=== PATIENT | male | born 1945 | race Caucasian/White ===

== ENCOUNTER 2016-07-11 02:11 | Observation (INO) | payer OTHER ==
[~2016-07-11] VITALS: Ht 172.7 cm; Wt 101.1 kg
[~2016-07-11 02:11] MED LIST: ACET-1256 PO; ASCO1CAP3 PO; ASPI1TAB83 PO; CHOL1000 PO; CLOP1TAB15 PO; ESCI1TAB10 PO; FINA5TAB4 PO; FLNIN NAE; FURO-85 PO; IMDSR30 PO; LEVO25TA5 PO; LSN5 PO; METO25TA3 PO; NMN5 PO; NRV5 PO; NTRGSL/4 UT; OMEG10007 PO; PANT40TA PO; ROSU40TA PO; SITA50TA3 PO
[2016-07-11 02:35] LABS: BASO % 0.4 %; BASO ABS # 0.02 K/uL (0-0.2); COMPLETE YES; EOS % 8.6 %; HEMATOCRIT 37.3 % (42-52); LYMPH % 39.5 %; LYMPH ABS # 2.21 K/uL (1.2-3.4); MEAN CORPUSCULAR HEMOGLOBIN 30.9 pg (25-34); MEAN CORPUSCULAR HGB CONC 35.1 g/dl (32-36); MEAN PLATELET VOLUME 10.6 fL (7.4-10.4); MONO % 7.9 %; NEUT % 43.6 %; PLATELET COUNT 144 K/uL (130-400); RED BLOOD COUNT 4.24 M/uL (4.7-6.1); WHITE BLOOD COUNT 5.59 K/uL (4.8-10.8)
[2016-07-11 02:49] LABS: PROTHROMBIN TIME (PATIENT) 10.2 SECONDS (9.0-12.0)
[2016-07-11 02:53] LABS: BUN/CREATININE RATIO 7.6 (10-20); CALCIUM 8.8 mg/dl (8.5-10.1); CREATININE 1.3 mg/dl (0.60-1.40); POTASSIUM 3.9 mmol/L (3.5-5.1)
[2016-07-11] MEDS ORDERED: AMOX500C3 PO (03:02)
[2016-07-11 03:03] LABS: CKMB/CK RATIO 1.3 (0-3.0)
[2016-07-11] MEDS ORDERED: VITATAB19 PO (03:03)
[2016-07-11] MEDS ORDERED: CHOL1000 PO (03:03)
[2016-07-11] MEDS ORDERED: FENTANYL CITRATE INJ 50 MCG/1 ML 2 ML VIAL IV STA (03:20)
[2016-07-11] MEDS ORDERED: ONDANSETRON INJ 2 MG/ML 2 ML VIAL IV PRN (03:45)
[2016-07-11] MEDS ORDERED: NITROGLYCERIN 0.4 MG SL PER TAB CHARGE SL PRN (03:45)
[2016-07-11] MEDS ORDERED: GLUCAGON FOR INJ 1 MG VIAL SQ PRN (03:45)
[2016-07-11] MEDS ORDERED: ALUMINUM/MAGNESIUM/SIMETH (MAALOX MAX) 30 ML UDC PO PRN ×3 (03:45→12:15)
[2016-07-11] MEDS ORDERED: POLYETHYLENE (MIRALAX) 17 GM PACK PO PRN (03:45)
[2016-07-11] MEDS ORDERED: MAGNESIUM HYDROXIDE SUSP 30 ML UDC PO PRN (03:45)
[2016-07-11] MEDS ORDERED: GLUCOSE 40% GEL 15 GM TUBE PO PRN (03:45)
[2016-07-11] MEDS ORDERED: DEXTROSE 50% 50 ML SYR IV PRN (03:45)
[2016-07-11] MEDS ORDERED: ACETAMINOPHEN 325 MG TAB PO PRN (03:45)
[2016-07-11] MEDS ORDERED: GLUCOSE 10 TABS/TUBE PO PRN (03:45)
[2016-07-11] MEDS ORDERED: IV FLUIDS COMPLETED PRN (04:15)
[2016-07-11 05:21] VITALS: BP 143/83; PULSE 65; TEMP 36.5; O2SAT 94; Ht 172.7 cm; Wt 101.1 kg
--- NOTE | 2016-07-11 05:24 | History and Physical ---
History & Physical Date & Time of Service: Jul 11, 2016 at 05:08 Chief Complaint: Chest Pain Primary Care Physician: Roger Jacobs M.D. History of Present Illness Source: patient, family, clinic records, hospital records This is a 71 year old male with PMH of CAD s/p CABG x 3, chronic stable angina, GERD, HLD, HTN, mild underlying dementia, DM2, hypothyroidism presents with worsening chest pain - he has had this same chest pain during previous admissions; states that the chest pain started suddenly while seated at home; as per , she states that he was diaphoretic and pale - he took two SL nitro at home with little improvement; took another nitro on the way here, nitro paste added for the patient as well as fentanyl in the ER - he feels much better now. He had a cardiac catheterization in January 2016, showing patent grafts. During previous admission in May, he had a few adjustments in his medications, including increasing in his imdur dose, as well as the addition of a calcium channel jos. Currently comfortable and in good spirits. Past Medical/Surgical History Medical Problems: (1) Adhesive capsulitis Status: Chronic (2) Alzheimer's dementia Status: Chronic (3) BPH (benign prostatic hyperplasia) Status: Chronic (4) Coronary artery disease Permanent Comment: s/p CABG x 3 in 1996 Status: Chronic (5) Diverticular disease of colon Status: Chronic (6) Dyslipidemia Status: Chronic (7) Gastroesophageal reflux disease Status: Chronic (8) Hearing loss Status: Chronic (9) Hypertension Status: Chronic (10) Hypothyroidism Status: Chronic (11) Osteoarthritis Status: Chronic Surgical Problems: (1) History of bilateral knee arthroplasty Status: Chronic (2) History of inguinal hernia repair Status: Chronic (3) Status post colonoscopy Permanent Comment: 2013 diverticulosis Status: Chronic (4) Status post coronary artery bypass grafting Status: Chronic Family History Coronary artery disease FATHER (ND in 50's) Social History Smoking Status: Never Smoker Drug Use: none Marital Status: Housing status: lives with family Occupational Status: retired Immunizations History of Influenza Vaccine: Yes Influenza Vaccine Date: Apr 25, 2015 History of Tetanus Vaccine?: Yes History of Pneumococcal: Yes History of Hepatitis B Vaccine: No Multi-Drug Resistant Organisms History of MDRO: No Allergies Coded Allergies: Dog Dander (Verified Allergy, Unknown, 07/11/16) Home Medications Scheduled Amlodipine Besylate (Amlodipine Besylate), 2.5 MG PO QAM Aspirin (Aspirin), 81 MG PO DAILY Cholecalciferol (Vitamin D3), 1,000 MG PO DAILY Cholecalciferol (Vitamin D3), 1 TAB PO DAILY Clopidogrel (Plavix), 75 MG PO DAILY Escitalopram Oxalate (Lexapro), 20 MG PO DAILY Fish Oil ([place]-3), 1 CAPSULE PO BID Fluticasone Propionate (Flonase Nasal [place]), 2 SPRAYS FEROZ DAILY Isosorbide Mononitrate (Isosorbide Mononitrate ER), 90 MG PO QAM Levothyroxine Sodium (Levothyroxine Sodium), 1 TAB PO DAILY Lisinopril (Lisinopril), 5 MG PO DAILY Memantine (Namenda), 5 MG PO BID Metoprolol Succinate (Toprol Xl), 25 MG PO DAILY Pantoprazole (Protonix), 40 MG PO DAILY Rosuvastatin Calcium (Crestor), 1 TAB PO DAILY Sitagliptin (Januvia), 50 MG PO DAILY Vitamin A-Beta Carotene (Vitamin A), 1,000 MG PO DAILY Scheduled PRN Acetaminophen (Tylenol), 1,000 MG PO DIRECTED PRN for Pain Amoxicillin (Amoxil), MG PO UD PRN for prior to dental work Nitroglycerin (Nitrostat), 0.4 MG UT PRN PRN for CHEST PAIN Review of Systems Constitutional: No chills, No fever, No weakness Respiratory: No cough, No shortness of breath, No sputum Cardiovascular: + chest pain (radiating to the back), No edema, No palpitations Abdomen: + nausea, No GI bleeding, No constipation, No diarrhea, No pain, No vomiting Musculoskeletal: No joint pain, No muscle pain Genitourinary - Male: No dysuria, No hematuria, No urinary frequency, No urinary urgency Neurologic: No memory loss Psychiatric: No depression symptoms Hematologic / Lymphatic: No abnormal bleeding/bruising Integumentary: No rash Allergic / Immunologic: No environmental allergies, No seasonal allergies Physical Exam Vital Signs Date Time Temp Pulse Resp B/P Pulse Ox O2 Delivery O2 Flow Rate FiO2 07/11/16 03:32 62 18 134/80 95 Room Air 07/11/16 02:24 67 07/11/16 02:21 36.5 63 18 135/85 95 Room Air 07/11/16 02:15 Room Air General Appearance: no apparent distress Head: normocephalic, atraumatic Eyes: normal inspection Respiratory/Chest: chest non-tender, lungs clear, normal breath sounds, no respiratory distress, no accessory muscle use Cardiovascular: regular rate, rhythm, no edema, no gallop, no JVD, no murmur, normal peripheral pulses Abdomen/GI: normal bowel sounds, non tender, soft Extremities/Musculoskelatal: no calf tenderness, normal capillary refill, no pedal edema Neurologic/Psych: sander and polisher II-XII nml as tested, no motor/sensory deficits, alert, normal mood/affect, oriented x 3 Skin: normal color Lymphatic: no adenopathy Diagnostics Laboratory Results Results Past 24 Hours Test 07/11/16 01:40 Range/Units White Blood Count 5.59 4.8-10.8 K/uL Red Blood Count 4.24 4.7-6.1 M/uL Hemoglobin 13.1 14.0-18.0 g/dL Hematocrit 37.3 42-52 % Mean Corpuscular Volume 88.0 80-100 fL Mean Corpuscular Hemoglobin 30.9 25-34 pg Mean Corpuscular Hemoglobin Concent 35.1 32-36 g/dl Platelet Count 144 130-400 K/uL Mean Platelet Volume 10.6 7.4-10.4 fL Neutrophils (%) (Auto) 43.6 % Lymphocytes (%) (Auto) 39.5 % Monocytes (%) (Auto) 7.9 % Eosinophils (%) (Auto) 8.6 % Basophils (%) (Auto) 0.4 % Neutrophils # (Auto) 2.44 1.4-6.5 K/uL Lymphocytes # (Auto) 2.21 1.2-3.4 K/uL Monocytes # (Auto) 0.44 0.11-0.59 K/uL Eosinophils # (Auto) 0.48 0-0.5 K/uL Basophils # (Auto) 0.02 0-0.2 K/uL RDW Standard Deviation 41.1 36.4-46.3 fL RDW Coefficient of Variation 12.8 11.5-14.5 % Immature Granulocyte % (Auto) 0.0 % Immature Granulocyte # (Auto) 0.00 0.00-0.02 K/uL Prothrombin Time 10.2 9.0-12.0 SECONDS Prothromb Time International Ratio 1.0 0.9-1.1 Activated Partial Thromboplast Time 27.1 21.0-31.0 SECONDS Partial Thromboplastin Ratio 1.0 Sodium Level 143 136-145 mmol/L Potassium Level 3.9 3.5-5.1 mmol/L Chloride Level 106 98-107 mmol/L Carbon Dioxide Level 26 21-32 mmol/L Anion Gap 11.0 3-11 mmol/L Blood Urea Nitrogen 10 7-18 mg/dl Creatinine 1.30 0.60-1.40 mg/dl Est Creatinine Clear Calc Drug Dose 60.3 ml/min Estimated GFR () 63.2 Estimated GFR (Non- 54.5 BUN/Creatinine Ratio 7.6 10-20 Random Glucose 160 70-99 mg/dl Calcium Level 8.8 8.5-10.1 mg/dl Total Creatine Kinase 208 39-308 U/L Creatine Kinase MB 2.6 0.5-3.6 ng/ml Creatine Kinase MB Ratio 1.3 0-3.0 Troponin I 0.105 0-0.045 ng/ml No change from prior EKG Impression Assessment and Plan This is a 71 year old male with PMH of CAD s/p CABG x 3, chronic stable angina, GERD, HLD, HTN, mild underlying dementia, DM2, hypothyroidism presents with worsening chest pain Chronic Stable Angina in the setting of CAD -->patient with CABG in 1996 -->cardiac cath in January 2016 - patent grafts -->troponin elevation chronically -->recurrence of anginal symptoms, improved with SL nitro, nitro paste, fentanyl -->continue ASA, Plavix, Imdur, CCB, b-jos, MARGY-I -->during previous admission, question of possibly starting Ranexa -->cycle cardiac enzymes -->cardiology consultation for further input DM2 -->insulin sliding scale -->monitor BSGs GERD -->continue PPI -->chest pain possibly related to reflux symptoms -->if chest pain does not resolved, consider increasing PPI to BID dosing or addition of ranitidine Hypothyroidism -->continue synthroid HTN -->continue home medications DVT ppx -->subq heparin DNR VTE Prophylaxis VTE Risk Assessment Done? Y/N: Yes Risk Level: Moderate
[2016-07-11] MEDS: LEVOTHYROXINE 25 MCG TAB PO SCH (06:18)
[2016-07-11] MEDS: HEPARIN SOD 5000 UNIT/0.5 ML CARP SQ SCH ×3 (06:19→20:59)
--- NOTE | 2016-07-11 06:44 | EMERGENCY ROOM VISIT NOTE ---
History Report prepared by Joseibemiliano: Fili Hoyt Under the Supervision of: Dr. Anastacio Ruelas M.D. First contact with patient: 02:15 Chief Complaint: CHEST PAIN Stated Complaint: CHEST PAIN History of Present Illness The patient is a 71 year old male who presents to the Emergency Room with complaints of resolved left-sided chest pain that started at approximately 0000. The patient was also reportedly pale and diaphoretic at that time, as per his . The patient was given 100 mcg Fentanyl, 324 mg Aspirin, and Nitro paste in the ambulance en route to the ED. He no longer has any pain. The patient denies any headaches, shortness of breath, nausea, abdominal pain, or new neck pain. He has not had any recent falls. The patient has a history of CAD and has had similar episodes of pain in the past. He had a cardiac catheterization six months ago with no stents at that time. The patient also has Alzheimer's disease. He has not had any recent illnesses. Source of History: patient, spouse/significant other Onset: 0000 Position: chest (left) Timing: resolved Modifying Factors (Relieving): other (Fentanyl, Aspirin, Nitropaste ) Associated Symptoms: + diaphoresis, No SOB, No headache, No nausea, No neck pain Review of Systems See HPI for pertinent positives & negatives. A total of 10 systems reviewed and were otherwise negative. Past Medical & Surgical Medical Problems: (1) Adhesive capsulitis (2) Alzheimer's dementia (3) BPH (benign prostatic hyperplasia) (4) Chest pain (5) Chest pain (6) Coronary artery disease (7) Diverticular disease of colon (8) Dyslipidemia (9) Falls (10) Gastroesophageal reflux disease (11) Hearing loss (12) Hypertension (13) Hypothyroidism (14) Osteoarthritis Surgical Problems: (1) History of bilateral knee arthroplasty (2) History of inguinal hernia repair (3) Status post colonoscopy (4) Status post coronary artery bypass grafting Family History Coronary artery disease FATHER (MS in 50's) Social History Smoking Status: Former Smoker Alcohol Use: none Drug Use: none Marital Status: Housing Status: lives with family Occupation Status: retired Current/Historical Medications Scheduled Amlodipine Besylate (Amlodipine Besylate), 2.5 MG PO QAM Aspirin (Aspirin), 81 MG PO DAILY Cholecalciferol (Vitamin D3), 1,000 MG PO DAILY Cholecalciferol (Vitamin D3), 1 TAB PO DAILY Clopidogrel (Plavix), 75 MG PO DAILY Escitalopram Oxalate (Lexapro), 20 MG PO DAILY Fish Oil ([place]-3), 1 CAPSULE PO BID Fluticasone Propionate (Flonase Nasal [place]), 2 SPRAYS FEROZ DAILY Isosorbide Mononitrate (Isosorbide Mononitrate ER), 90 MG PO QAM Levothyroxine Sodium (Levothyroxine Sodium), 1 TAB PO DAILY Lisinopril (Lisinopril), 5 MG PO DAILY Memantine (Namenda), 5 MG PO BID Metoprolol Succinate (Toprol Xl), 25 MG PO DAILY Pantoprazole (Protonix), 40 MG PO DAILY Rosuvastatin Calcium (Crestor), 1 TAB PO DAILY Sitagliptin (Januvia), 50 MG PO DAILY Vitamin A-Beta Carotene (Vitamin A), 1,000 MG PO DAILY Scheduled PRN Acetaminophen (Tylenol), 1,000 MG PO DIRECTED PRN for Pain Amoxicillin (Amoxil), MG PO UD PRN for prior to dental work Nitroglycerin (Nitrostat), 0.4 MG UT PRN PRN for CHEST PAIN Allergies Coded Allergies: Dog Dander (Verified Allergy, Unknown, 07/11/16) Physical Exam Vital Signs Date Time Temp Pulse Resp B/P Pulse Ox O2 Delivery O2 Flow Rate FiO2 07/11/16 03:32 62 18 134/80 95 Room Air 07/11/16 02:24 67 07/11/16 02:21 36.5 63 18 135/85 95 Room Air 07/11/16 02:15 Room Air Physical Exam GENERAL: Patient is well appearing and in no acute distress. HEENT: No acute trauma, normocephalic atraumatic, mucous membranes moist, no nasal congestion, no scleral icterus. NECK: No stridor, no adenopathy, no meningismus, trachea is midline. LUNGS: No dyspnea. Clear to auscultation and equal bilaterally. No wheeze, no rhonchi. HEART: Regular rate and rhythm. No murmurs, rubs, gallops appreciated. CHEST: Sternotomy scar appreciated. ABDOMEN: Soft, nontender, bowel sounds positive, no masses appreciated, no peritonitis. BACK: No midline tenderness, no CVA tenderness EXTREMITIES: Normal motion all extremities, no cyanosis, no edema. NEUROLOGIC: Alert and oriented, knows name and knows , cannot remember anything else. No acute motor or sensory deficits, no focal weakness, cranial nerves grossly intact. SKIN: No rash, no jaundice, no diaphoresis. Medical Decision & Procedures ER Provider Diagnostic Interpretation: X ray results are stated below per my interpretation: Chest: 1 view: No infiltrate, no effusion, normal cardiac border. Evidence of previous cardiac surgery. Laboratory Results 07/11/16 01:40 Red Blood Count 4.24, Mean Corpuscular Volume 88.0, Mean Corpuscular Hemoglobin 30.9, Mean Corpuscular Hemoglobin Concent 35.1, Mean Platelet Volume 10.6, Neutrophils (%) (Auto) 43.6, Lymphocytes (%) (Auto) 39.5, Monocytes (%) (Auto) 7.9, Eosinophils (%) (Auto) 8.6, Basophils (%) (Auto) 0.4, Neutrophils # (Auto) 2.44, Lymphocytes # (Auto) 2.21, Monocytes # (Auto) 0.44, Eosinophils # (Auto) 0.48, Basophils # (Auto) 0.02 07/11/16 01:40 Test 07/11/16 01:40 White Blood Count 5.59 K/uL (4.8-10.8) Red Blood Count 4.24 M/uL (4.7-6.1) Hemoglobin 13.1 g/dL (14.0-18.0) Hematocrit 37.3 % (42-52) Mean Corpuscular Volume 88.0 fL (80-100) Mean Corpuscular Hemoglobin 30.9 pg (25-34) Mean Corpuscular Hemoglobin Concent 35.1 g/dl (32-36) Platelet Count 144 K/uL (130-400) Mean Platelet Volume 10.6 fL (7.4-10.4) Neutrophils (%) (Auto) 43.6 % Lymphocytes (%) (Auto) 39.5 % Monocytes (%) (Auto) 7.9 % Eosinophils (%) (Auto) 8.6 % Basophils (%) (Auto) 0.4 % Neutrophils # (Auto) 2.44 K/uL (1.4-6.5) Lymphocytes # (Auto) 2.21 K/uL (1.2-3.4) Monocytes # (Auto) 0.44 K/uL (0.11-0.59) Eosinophils # (Auto) 0.48 K/uL (0-0.5) Basophils # (Auto) 0.02 K/uL (0-0.2) RDW Standard Deviation 41.1 fL (36.4-46.3) RDW Coefficient of Variation 12.8 % (11.5-14.5) Immature Granulocyte % (Auto) 0.0 % Immature Granulocyte # (Auto) 0.00 K/uL (0.00-0.02) Prothrombin Time 10.2 SECONDS (9.0-12.0) Prothromb Time International Ratio 1.0 (0.9-1.1) Activated Partial Thromboplast Time 27.1 SECONDS (21.0-31.0) Partial Thromboplastin Ratio 1.0 Anion Gap 11.0 mmol/L (3-11) Est Creatinine Clear Calc Drug Dose 60.3 ml/min Estimated GFR () 63.2 Estimated GFR (Non- 54.5 BUN/Creatinine Ratio 7.6 (10-20) Calcium Level 8.8 mg/dl (8.5-10.1) Total Creatine Kinase 208 U/L (39-308) Creatine Kinase MB 2.6 ng/ml (0.5-3.6) Creatine Kinase MB Ratio 1.3 (0-3.0) Troponin I 0.105 ng/ml (0-0.045) Laboratory results as reviewed by me. Medications Administered Medications (Trade) Dose Ordered Sig/Briseida Route Start Time Stop Time Status Last Admin Dose Admin Fentanyl Citrate (Fentanyl Inj) 100 mcg NOW STAT IV 07/11/16 03:20 07/11/16 03:21 DC 07/11/16 03:30 100 MCG ECG Indication: chest pain Rate (beats per minute): 62 Rhythm: sinus rhythm Findings: 1st degree AV block, T-wave inversion (Anterior), no ectopy Comparison ECG Date: 2015 Change: Similar morphology however T wave inversions are more pronounced anteriorly when compared to previous EKG. ED Course 0214: The patient was evaluated in room A10. A complete history and physical exam was performed. 0310: Discussed the case with Dr. Delaney, [facility] Hospitalist. The patient will be evaluated. 0319: The patient is having more pain. 0320: Fentanyl Citrate 100 mcg IV. Medical Decision Differential: Cardiac Ischemia (STEMI, NSTEMI, Unstable Angina, etc), Aortic Dissection, Arrhythmia, Pulmonary Embolism, Pneumonia, Pneumothorax, MSK, Infectious, Pericarditis/Myocarditis, Esophageal Rupture, Gastrointestinal, amongst other pathologies entertained. 71 yr old male arrives with left chest pain. Long cardiac history of CABG with known small vessel disease seen on cath . He was given SLTNG, Nitro Past , ASA, and Fentanyl CHEMICAL RESEARCH TECHNICIAN by EMS with resolution of pain. Without complaint here. Unable to remember what had actually happened as he has alzheimer's dementia. He is in no distress now though and looks well. With gave much of history as he is pleasantly demented. Did develop breath episode of nausea/ chest pain which resolved with fentanyl/burping. Stable and no further issues. EKG with some mild increase in T wave inversions, likely secondary to lead placement though. Trop similar to previous trops. Will bring in for cardiac rule out given his extensive cardiac history. Consults Time Called: [phone] Consulting Physician: [facility] Returned Call: [phone]: Discuss[facility] the case with [facility] The patient will be evaluated. Impression Primary Impression: Left sided chest pain Scribe Attestation The scribe's documentation has been prepared under my direction and personally reviewed by me in its entirety. I confirm that the note above accurately reflects all work, treatment, procedures, and medical decision making performed by me. Departure Information Dispostion Being Evaluated By Hospitalist Referrals Roger Jacobs M.D. (PCP) Patient Instructions A Signature Page, My [facility]
--- NOTE | 2016-07-11 07:34 | DIAGNOSTIC IMAGING REPORT ---
CHEST ONE VIEW PORTABLE HISTORY: Left-sided Chest Pain COMPARISON: Chest 05/20/2016. FINDINGS: No pleural effusions. No pneumothorax. The lungs are clear. The heart is normal in size. There are poststernotomy changes. IMPRESSION: No acute process. Electronically signed by: Emir Avery M.D. 07/11/2016 7:32 AM
[2016-07-11] MEDS: ASPIRIN 81 MG ECTAB PO SCH (08:34)
[2016-07-11] MEDS: ROSUVASTATIN CALCIUM 20 MG TAB PO SCH (08:34)
[2016-07-11] MEDS: ISOSORBIDE MONONITRATE 30 MG TABCR PO SCH (08:34)
[2016-07-11] MEDS: MEMANTINE 5 MG TAB PO SCH ×2 (08:34→20:28)
[2016-07-11] MEDS: AMLODIPINE BESYLATE 5 MG TAB PO SCH (08:35)
[2016-07-11] MEDS: ESCITALOPRAM OXALATE 20 MG TAB PO SCH (08:35)
[2016-07-11] MEDS: CLOPIDOGREL BISULFATE 75 MG TAB PO SCH (08:35)
[2016-07-11] MEDS: METOPROLOL SUCC 25MG EXT REL TAB PO SCH (08:36)
[2016-07-11] MEDS: LISINOPRIL 5 MG TAB PO SCH (08:36)
[2016-07-11] MEDS: INSULIN ASPART 100 UNITS/ML 3 ML PEN SC SCH ×4 (08:39→21:00)
[2016-07-11] MEDS ORDERED: PANTOprazole SOD 40 MG TAB PO SCH (09:00)
[2016-07-11 10:48] LABS: CKMB/CK RATIO 1.5 (0-3.0)
[2016-07-11] MEDS ORDERED: ALUMINUM/MAGNESIUM/SIMETH (MAALOX MAX) 30 ML UDC PO STA ×2 (11:27→12:04)
[2016-07-11] MEDS ORDERED: ALUM HYDROX/MAG TRISILICATE CHEW PO PRN (11:30)
[2016-07-11 12:00] VITALS: BP 140/70; PULSE 64; TEMP 36.8; O2SAT 95
[2016-07-11] MEDS ORDERED: OPTIRAY 320 IV PRN (12:00)
--- NOTE | 2016-07-11 12:08 | DIAGNOSTIC IMAGING REPORT ---
KUB HISTORY: Generalized abdominal pain. COMPARISON: Abdomen and pelvis CT 09/27/2015. FINDINGS: The bowel gas pattern is unremarkable. There are no dilated loops of small bowel to suggest an obstruction. No renal calculi. No ureteral calculi. No pneumoperitoneum or pneumatosis. IMPRESSION: Unremarkable bowel gas pattern. No evidence for bowel obstruction. Electronically signed by: Emir Avery M.D. 07/11/2016 12:06 PM
[2016-07-11] MEDS: SODIUM CHLORIDE 0.9% 1000ML 1,000 ML IV SCH ×2 (12:29→20:28)
--- NOTE | 2016-07-11 12:56 | CARDIOLOGY CONSULTATION ---
DATE OF CONSULTATION: 07/11/2016 CONSULTATION REQUESTED BY: Dr. Delaney. REASON FOR CONSULTATION: Chest discomfort. HISTORY OF PRESENT ILLNESS: Mr. Villareal is a very pleasant 71-year-old gentleman who normally follows with myself of our cardiology practice as an outpatient. He presented to [facility] Emergency Department late on the evening of 07/10/2016 with a complaint of abdominal pain. At the patient's most recent outpatient visit with me on June 13, at that time he and his were complaining that he was experiencing increasing abdominal discomfort that usually occurred after eating. He had a significant amount of gas and his described him as very belchy and very gaseous. At that time, I referred him to our GI colleagues for further evaluation. He was actually scheduled to see them yesterday, but unfortunately came into the Emergency Department instead. Currently, he states that he woke up this morning with severe abdominal pain. He states he feels very bloated. It is very very tender to touch, and he just cannot get comfortable. Nursing reports that he did seem to be a little bit better after belching; however, the patient does remember and his history is somewhat limited by his history of dementia. Otherwise, he states that the discomfort encompasses his entire abdomen, more so on the right than on the left though. There is some slight radiation up into his chest, but he denies any associated shortness of breath, diaphoresis, palpitations, lightheadedness or syncope. He is somewhat nauseous. He has not eaten anything today. PAST SURGICAL HISTORY: 1. Coronary artery bypass grafting surgery x3 in 1996 with a ROMANO to the LAD, vein graft to diagonal and vein graft to the posterior descending. 2. Followup cardiac catheterization in January 2016 showing patent grafts. 3. Colonoscopy. 4. Shoulder surgery. 5. Hernia repair. 6. TURP. 7. Cystoscopy. MEDICAL ILLNESSES: 1. Coronary artery disease status post CABG with patent grafts. 2. Significant dementia, Alzheimer's type. 3. Hypertension. 4. Dyslipidemia. FAMILY HISTORY: Noncontributory. SOCIAL HISTORY: The patient has remote tobacco use history. Denies any alcohol or recreational drug use. He is . He lives at home with his . REVIEW OF SYSTEMS: As per HPI, all other review of systems reviewed and negative at this time. ALLERGIES: No known drug allergies. MEDICATIONS AN OUTPATIENT: 1. Aspirin 81 mg daily. 2. Plavix 75 mg daily. 3. Toprol-XL 25 mg daily. 4. Crestor 40 mg daily. 5. Lisinopril 5 mg daily. 6. Imdur 90 mg daily. 7. Amlodipine 2.5 mg daily. 8. Pepcid b.i.d. 9. Protonix daily. 10. Levoxyl daily. 11. Januvia daily. 12. Lexapro daily. 13. Namenda daily. PHYSICAL EXAMINATION: VITAL SIGNS: Temperature 36.5, pulse 59, respiratory rate 12, blood pressure 141/90. GENERAL: Awake, alert, oriented x3, mild distress secondary to abdominal discomfort. HEENT: Normocephalic, atraumatic. Pupils equal, round, and reactive to light and accommodation. Extraocular muscles intact. Anicteric sclerae. Moist mucous membranes. NECK: No JVD, no bruit. CARDIOVASCULAR: Regular. Positive S4. Normal S1 and S2. No S3. No murmurs or rubs. PULMONARY: Clear to auscultation bilaterally. Soft. No rebound, guarding, tenderness. No organomegaly. ABDOMEN: Unable to appreciate bowel sounds. Rigid, diffuse tenderness with guarding particularly in the right upper quadrant. No rebound. EXTREMITIES: No clubbing, cyanosis or edema. +2 pedal pulses bilaterally. SKIN: Warm and dry. TEST RESULTS OF SIGNIFICANCE: Laboratory studies: Troponin of 0.1, followup stable. CPK unremarkable at 208, followed by 154. Sodium 143, potassium 3.9. White count 5.6, hemoglobin 13.1, platelet count 144. INR 1. A 12-lead EKG performed in the Emergency Department independently reviewed at this time shows sinus rhythm with first degree AV block, underlying right bundle branch block, old inferior infarct. T-wave inversions more prominent in the anterior leads. IMPRESSION: 1. Abdominal pain. 2. Coronary artery disease with patent grafts by cardiac catheterization January 2016. 3. Dementia. 4. Hypertension. 5. Dyslipidemia. 6. Questionable gastroesophageal reflux disease. RECOMMENDATIONS: It was my pleasure to see Mr. Villareal in consultation today. I do not see any cardiac component to his complaints and am concerned for significant GI pathology. So at this time, a KUB film will be ordered, as well as stat LFTs. I have discussed with the hospitalist and recommend either evaluation with surgery or by GI. Otherwise, no further cardiac testing is necessary at this time. His troponin is nonischemic in origin.
--- NOTE | 2016-07-11 13:01 | ECHOCARDIOGRAM REPORT ---
*NOTICE TO RECEIVING DEMOCRAT AGENCY This information is strictly Confidential and protected under [place] law. [place] law prohibits you from making any further disclosure of this information unless further disclosure is expressly permitted by the written consent of the person to whom it pertains or is authorized by law. A general authorization for the release of medical or other information is not sufficient for this purpose. Hospital accepts no responsibility if the information is made available to any other person, INCLUDING THE PATIENT. Interpretation Summary * Name: GERALDO PEREZ Study Date: 07/11/2016 11:21 AM BP: 141/90 mmHg * Patient Location: C.EDINP\S\EDINP 1\S\4 HR: 58 * : 1945 (M/d/yyyy) Gender: Male Height: 68 in * Age: 71 yrs Ethnicity: [place] Weight: 231 lb * Ordering Physician: Jerzy Jay * Referring Physician: Self, Referred * Performed By: Yumiko Martel RCS * * Reason For Study: EVAL WALL MOTION * BSA: 2.2 m2 * -- Conclusions -- * No change in wall motion compared to previous study of 05/20/16. * Normal LV chamber size with mild concentric LVH. * Normal LV systolic function, EF 55-60%. * There is a small sized septal wall motion abnormality with hypokinesis of the segments, otherwise, normal wall motion. Procedure Details * Limited views were obtained. * A contrast injection of Definity was performed to improve assessment of LV function. * Contrast was injected into an intravenous site in the left arm. * One vial of Definity ultrasound contrast was diluted in normal saline to a total volume of 10 ml. A total of '2' ml of solution was administered during imaging. * Lot # [id number] of Definity utilized for procedure. * Expiration date 1 DEC 21. * The attending nurse who injected the contrast agent was DONNA BEY RN. Left Ventricle * The left ventricle is normal in size. * There is mild concentric left ventricular hypertrophy. * Ejection Fraction = 55-60%. * Left ventricular systolic function is normal. * There is a small sized septal wall motion abnormality with hypokinesis of the segments, otherwise, normal wall motion. MMode 2D Measurements and Calculations IVSd 1.4 cm IVSs 1.6 cm LVIDd 5.7 cm LVIDs 4.3 cm LVPWd 1.2 cm LVPWs 1.3 cm IVS/LVPW 1.1 FS 23.3 % EDV(Teich) 157.5 ml ESV(Teich) 84.9 ml EF(Teich) 46.1 % EDV(cubed) 181.3 ml ESV(cubed) 81.8 ml EF(cubed) 54.9 % % IVS thick 13.8 % % LVPW thick 4.5 % LV mass(C)d 327.0 grams LV mass(C)dI 150.5 grams/m\S\2 LV mass(C)s 248.3 grams LV mass(C)sI 114.3 grams/m\S\2 SV(Teich) 72.5 ml SI(Teich) 33.4 ml/m\S\2 SV(cubed) 99.5 ml SI(cubed) 45.8 ml/m\S\2 LVOT diam 2.0 cm LVOT area 3.0 cm\S\2 LVAd ap4 28.7 cm\S\2 LVLd ap4 7.2 cm EDV(MOD-sp4) 93.6 ml EDV(sp4-el) 97.7 ml LVAs ap4 19.3 cm\S\2 LVLs ap4 6.6 cm ESV(MOD-sp4) 47.3 ml ESV(sp4-el) 47.9 ml EF(MOD-sp4) 49.5 % EF(sp4-el) 51.0 % LVAd ap2 25.4 cm\S\2 LVLd ap2 6.7 cm EDV(MOD-sp2) 79.1 ml EDV(sp2-el) 81.7 ml LVAs ap2 16.1 cm\S\2 LVLs ap2 5.9 cm ESV(MOD-sp2) 36.2 ml ESV(sp2-el) 37.3 ml EF(MOD-sp2) 54.2 % EF(sp2-el) 54.3 % LVLd %diff -6.55 % EDV(MOD-bp) 89.3 ml LVLs %diff -11.60 % ESV(MOD-bp) 41.7 ml EF(MOD-bp) 53.3 % SV(MOD-sp4) 46.3 ml SI(MOD-sp4) 21.3 ml/m\S\2 SV(MOD-sp2) 42.8 ml SI(MOD-sp2) 19.7 ml/m\S\2 SV(MOD-bp) 47.6 ml SI(MOD-bp) 21.9 ml/m\S\2 SV(sp4-el) 49.8 ml SI(sp4-el) 22.9 ml/m\S\2 SV(sp2-el) 44.3 ml SI(sp2-el) 20.4 ml/m\S\2 Doppler Measurements and Calculations TR max huey 240.1 cm/sec
[2016-07-11] MEDS: BISMUTH SUBSALICYLATE SUSP PO SCH ×3 (13:40→23:22)
--- NOTE | 2016-07-11 14:41 | DIAGNOSTIC IMAGING REPORT ---
ABDOMEN AND PELVIS CT WITH IV CONTRAST CT DOSE: 776.95 mGy.cm HISTORY: Pain nausea and stiff abdomen with guarding TECHNIQUE: Multiaxial CT images of the abdomen and pelvis were performed following the use of intravenous contrast. COMPARISON STUDY: 09/27/2015 FINDINGS: Small hiatal hernia. Lung bases are otherwise considered clear. Mild fatty infiltration of liver. Gallbladder is negative for distention. Spleen is unremarkable. Kidneys enhance uniformly. There is no evidence for hydronephrosis. Bowel pattern is nonobstructive. No significant abdominal or pelvic adenopathy. Bladder is midline. IMPRESSION: No significant abnormality identified within the abdomen or pelvis. Electronically signed by: Roger Zavala M.D. 07/11/2016 2:39 PM Dictated Date/Time: 07/11/2016 2:33 PM
[2016-07-11 16:00] VITALS: BP 179/81; PULSE 95; TEMP 36.7; O2SAT 93
[2016-07-11] MEDS: MoRPHine SULFATE 2 MG/ML CARP IV PRN ×2 (16:15→16:16)
--- NOTE | 2016-07-11 16:17 | Gastrointestinal Consultation ---
Gastrointestinal Consultation Date of Consultation: Jul 11, 2016 Consulting Physician: Dr. Carlisle Reason for Consultation: noncardiac chest pain History of Present Illness Patient is a 71 year old male, past medical HX significant for dementia, DMT2, CAD s/p CABG x 3, chronic stable angina, GERD, HTN, hyperlipidemia and hypothyroidism who presented to the ED this afternoon with chest pain. A cardiac workup cleared chest pain from a cardiac pathophysiology. GI was consulted to evaluate abdominal distention, bloating, abdominal pain after eating. States that feels slightly relieved with belching. Patient states that these symptoms had abrupt onset last night and have persisted. ROS is limited due to underlying dementia. AST: 143 ALT: 94 TB: 0.9 DB: 0.5 KUB 07/11/16 The bowel gas pattern is unremarkable. There are no dilated loops of small bowel to suggest an obstruction. No renal calculi. No ureteral calculi. No pneumoperitoneum or pneumatosis. CT 07/11/16 Small hiatal hernia. Lung bases are otherwise considered clear. Mild fatty infiltration of liver. Gallbladder is negative for distention. Spleen is unremarkable. Kidneys enhance uniformly. There is no evidence for hydronephrosis. Bowel pattern is nonobstructive. No significant abdominal or pelvic adenopathy. Bladder is midline. Past Medical/Surgical History Medical Problems: (1) Abnormal EKG Status: Acute (2) Acute chest pain Status: Acute (3) Elevated troponin Status: Acute (4) Elevated troponin Status: Acute (5) Left sided chest pain Status: Acute (6) Left sided chest pain Status: Acute (7) Substernal chest pain Status: Acute Family History Coronary artery disease FATHER ([place] in 50's) Social History Smoking Status: Former Smoker Alcohol Use: none Drug Use: none Marital Status: Housing Status: lives with family Occupation Status: retired Allergies Coded Allergies: Dog Dander (Verified Allergy, Unknown, 07/11/16) Current Medications Home Meds and Scripts Medications Dose Route/Sig Max Daily Dose Days Date Category Dose Instructions Vitamin D3 (Cholecalciferol) 1,000 Unit Tab 1 Tab PO DAILY 90 07/11/16 Reported Vitamin A (Vitamin A-Beta Carotene) 1 Tab Tab 1,000 Mg PO DAILY 07/11/16 Reported Amoxil (Amoxicillin) 500 Mg Cap Mg PO UD PRN 07/11/16 Reported Isosorbide Mononitrate ER (Isosorbide Mononitrate) 30 Mg Tabcr 90 Mg PO QAM 30 05/22/16 Rx Crestor (Rosuvastatin Calcium) 40 Mg Tab 1 Tab PO DAILY 30 05/22/16 Rx Lisinopril 5 Mg Tab 5 Mg PO DAILY 30 05/22/16 Rx Amlodipine Besylate 5 Mg Tab 2.5 Mg PO QAM 30 05/22/16 Rx Vitamin D3 (Cholecalciferol) 1,000 Unit Tab 1,000 Mg PO DAILY 90 05/20/16 Reported Protonix (Pantoprazole Sodium) 40 Mg Tab 40 Mg PO DAILY 05/20/16 Reported Nitrostat (Nitroglycerin) 0.4 Mg Tab 0.4 Mg UT PRN PRN 05/20/[address] 1 PILL UNDER THE TONGUE EVERY 5 MIN FOR CHEST PAIN FOR A TOTAL OF 3 DOSES. Lexapro (Escitalopram Oxalate) 20 Mg Tab 20 Mg PO DAILY 05/20/16 Reported Januvia (Sitagliptin) 50 Mg Tab 50 Mg PO DAILY 02/02/16 Reported Toprol Xl (Metoprolol Succinate) 25 Mg Tabcr 25 Mg PO DAILY 02/02/16 Reported Plavix (Clopidogrel Bisulfate) 75 Mg Tab 75 Mg PO DAILY 02/02/16 Reported Namenda (Memantine) 5 Mg Tab 5 Mg PO BID 01/20/16 Reported Levothyroxine Sodium 25 Mcg Tab 1 Tab PO DAILY 01/20/16 Reported Tylenol (Acetaminophen) 500 Mg Tab 1,000 Mg PO DIRECTED PRN 09/27/15 Reported Flonase Nasal [place] (Fluticasone Propionate) 120 Sprays/6000 Mcg [place]ha 2 Sprays FEROZ DAILY 02/26/13 Reported Aspirin 81 Mg Tab 81 Mg PO DAILY 02/26/13 Reported [place]-3 (Fish Oil) 1 Ea Cap 1 Capsule PO BID 07/16/10 Reported Review of Systems Constitutional: No chills, No fever Respiratory: No shortness of breath Cardiac: + chest pain Abdomen: + pain, No GI bleeding, No constipation, No diarrhea, No nausea, No vomiting Physical Exam Date Time Temp Pulse Resp B/P Pulse Ox O2 Delivery O2 Flow Rate FiO2 07/11/16 13:20 67 07/11/16 12:00 36.8 64 18 140/70 95 Room Air 07/11/16 12:00 95 Room Air 07/11/16 11:07 59 07/11/16 08:36 59 11 95 07/11/16 08:31 58 13 95 07/11/16 08:28 141/90 07/11/16 08:26 58 11 95 07/11/16 08:21 57 13 95 07/11/16 08:16 59 14 95 07/11/16 08:11 59 15 96 07/11/16 08:06 57 13 96 07/11/16 08:04 134/79 07/11/16 07:56 59 15 07/11/16 07:51 66 15 07/11/16 07:46 67 17 07/11/16 07:41 66 15 07/11/16 07:36 70 21 07/11/16 07:31 66 22 07/11/16 07:21 60 96 07/11/16 07:16 59 94 07/11/16 07:11 59 96 07/11/16 07:06 60 95 07/11/16 07:01 61 94 07/11/16 06:58 141/78 07/11/16 06:56 59 95 07/11/16 06:51 60 94 07/11/16 06:46 58 94 07/11/16 06:41 59 94 07/11/16 06:36 59 13 94 07/11/16 06:31 61 14 94 07/11/16 06:28 161/87 07/11/16 06:26 61 18 96 07/11/16 06:21 58 11 95 07/11/16 06:21 57 07/11/16 06:16 61 13 95 07/11/16 06:11 57 14 92 07/11/16 06:06 59 14 93 07/11/16 06:01 58 13 92 07/11/16 05:59 129/72 07/11/16 05:59 65 16 143/83 94 Room Air 07/11/16 05:56 57 12 93 07/11/16 05:51 56 14 94 07/11/16 05:46 63 25 95 07/11/16 05:41 56 13 96 07/11/16 05:36 58 11 95 07/11/16 05:31 58 11 95 07/11/16 05:28 165/93 07/11/16 05:26 58 13 94 07/11/16 05:21 60 10 95 07/11/16 05:21 36.5 65 16 143/83 94 Room Air 07/11/16 05:16 57 12 95 07/11/16 05:11 57 11 95 07/11/16 05:06 62 14 93 07/11/16 05:01 63 19 95 07/11/16 04:59 138/91 07/11/16 04:57 143/83 07/11/16 04:56 67 19 95 07/11/16 04:51 61 13 94 07/11/16 04:46 61 12 95 07/11/16 04:41 63 13 07/11/16 04:36 64 13 07/11/16 04:31 62 10 07/11/16 04:28 111/79 07/11/16 04:26 63 12 07/11/16 04:21 62 11 07/11/16 04:16 60 11 07/11/16 04:11 60 10 94 07/11/16 04:06 59 12 93 07/11/16 04:01 61 10 93 07/11/16 03:59 141/84 07/11/16 03:56 65 11 91 07/11/16 03:51 61 8 91 07/11/16 03:46 61 8 88 07/11/16 03:41 61 12 92 07/11/16 03:36 60 7 93 07/11/16 03:32 62 18 134/80 95 Room Air 07/11/16 03:31 61 7 94 07/11/16 03:29 134/80 07/11/16 03:26 61 10 95 07/11/16 03:21 61 6 94 07/11/16 03:16 62 17 96 07/11/16 03:11 69 17 95 07/11/16 03:06 62 16 95 07/11/16 03:05 148/82 07/11/16 03:01 62 13 95 07/11/16 02:56 62 17 94 07/11/16 02:51 62 16 94 07/11/16 02:46 62 17 93 07/11/16 02:41 65 18 95 07/11/16 02:36 66 12 94 07/11/16 02:31 65 13 93 07/11/16 02:26 64 14 94 07/11/16 02:24 67 07/11/16 02:21 68 22 07/11/16 02:21 36.5 63 18 135/85 95 Room Air 07/11/16 02:19 135/85 07/11/16 02:15 Room Air General Appearance: no apparent distress Eyes: PERRL ENT: hearing grossly normal Neck: supple, trachea midline Respiratory/Chest: lungs clear, normal breath sounds, no respiratory distress, no accessory muscle use Cardiovascular: regular rate, rhythm, no edema, no gallop, no JVD, no murmur Abdomen: normal bowel sounds, non tender, soft, no organomegaly Neurologic/Psych: alert, normal mood/affect, oriented x 3 Skin: normal color, no jaundice, warm/dry, no rash Laboratory Results Last 24 Hours Test 07/11/16 01:40 07/11/16 07:56 07/11/16 09:58 07/11/16 11:44 White Blood Count 5.59 K/uL Red Blood Count 4.24 M/uL Hemoglobin 13.1 g/dL Hematocrit 37.3 % Mean Corpuscular Volume 88.0 fL Mean Corpuscular Hemoglobin 30.9 pg Mean Corpuscular Hemoglobin Concent 35.1 g/dl Platelet Count 144 K/uL Mean Platelet Volume 10.6 fL Neutrophils (%) (Auto) 43.6 % Lymphocytes (%) (Auto) 39.5 % Monocytes (%) (Auto) 7.9 % Eosinophils (%) (Auto) 8.6 % Basophils (%) (Auto) 0.4 % Neutrophils # (Auto) 2.44 K/uL Lymphocytes # (Auto) 2.21 K/uL Monocytes # (Auto) 0.44 K/uL Eosinophils # (Auto) 0.48 K/uL Basophils # (Auto) 0.02 K/uL RDW Standard Deviation 41.1 fL RDW Coefficient of Variation 12.8 % Immature Granulocyte % (Auto) 0.0 % Immature Granulocyte # (Auto) 0.00 K/uL Prothrombin Time 10.2 SECONDS Prothromb Time International Ratio 1.0 Activated Partial Thromboplast Time 27.1 SECONDS Partial Thromboplastin Ratio 1.0 Sodium Level 143 mmol/L Potassium Level 3.9 mmol/L Chloride Level 106 mmol/L Carbon Dioxide Level 26 mmol/L Anion Gap 11.0 mmol/L Blood Urea Nitrogen 10 mg/dl Creatinine 1.30 mg/dl Est Creatinine Clear Calc Drug Dose 60.3 ml/min Estimated GFR () 63.2 Estimated GFR (Non- 54.5 BUN/Creatinine Ratio 7.6 Random Glucose 160 mg/dl Calcium Level 8.8 mg/dl Total Creatine Kinase 208 U/L 154 U/L Creatine Kinase MB 2.6 ng/ml 2.3 ng/ml Creatine Kinase MB Ratio 1.3 1.5 Troponin I 0.105 ng/ml 0.101 ng/ml Bedside Glucose 198 mg/dl 122 mg/dl Test 07/11/16 12:04 Lactic Acid Level 1.4 mmol/L Total Bilirubin 0.9 mg/dl Direct Bilirubin 0.5 mg/dl Aspartate Amino Transf (AST/SGOT) 143 U/L Alanine Aminotransferase (ALT/SGPT) 94 U/L Alkaline Phosphatase 46 U/L Total Protein 6.6 gm/dl Albumin 3.9 gm/dl Lipase 171 U/L Impression Patient is a 71 year old male with noncardiac chest pain, abdominal pain, elevated DB and elevated LFT. Pain is unexplained by KUB and CT scan. Plan US abd for evaluation of biliary obstruction NPO after midnight EGD 07/12/16 [facility] Attg addendum: I interviewed and examined pt, reviewed chart and labs. Pt with cardiac disease, recurrent episodes of CP now admitted for same. Prior cards w/ u unremarkable. Pt unable to provide history, but describes post prandial episodes of chest and abdominal pain associated with belching, not relieved by NTG. Exam unremarkable. Labs show elevated troponin - his troponins have been elevated on previous exam. Echo unremarkable. LFT's are chornically, stably elevated. Abd CT unremarkable. It may be possible that pt has acid peptic or biliary disease. Request uls to look for gall stones, plan EGD tomorrow.
--- NOTE | 2016-07-11 18:25 | DIAGNOSTIC IMAGING REPORT ---
Biliary ultrasound CLINICAL HISTORY: Elevated direct bilirubin and LFTs. Possible biliary obstruction COMPARISON STUDY: CT scan dated 07/11/2016 FINDINGS: The pancreas was not well-visualized. The liver is of increased echogenicity and heterogeneous in echotexture. The findings are consistent with hepatic steatosis, although hepatitis could appear similar. No focal masses are visualized. There is no ductal dilatation. The common bile duct measures 5 mm. No gallstones are visualized. There is mild gallbladder sludge versus dependent artifact. There is no right-sided hydronephrosis. IMPRESSION: 1. Increased hepatic echogenicity, most likely secondary to hepatic steatosis. 2. No gallstones identified 3. No evidence of ductal dilatation Electronically signed by: Misael Saleem M.D. 07/11/2016 6:23 PM Dictated Date/Time: 07/11/2016 6:21 PM
--- NOTE | 2016-07-11 19:29 | Progress Note ---
Internal Med Progress Note Date of Service: Jul 11, 2016. Provider Documentation: SUBJECTIVE: complains of lot of belching and epigastric and lower chest pain. Afebrile. hemodynamics stable. non cardiac as per cardiology. KUB and ct scan of abd/ plevis unremarkable.No gall stones on US. lipase normal Started on Protonix bid. Consulted GI and plan for egd in am. ASSESSMENT & PLAN: [] DVT PROPHYLAXIS [] DISPOSITION [] Vital Signs: Date Time Temp Pulse Resp B/P Pulse Ox O2 Delivery O2 Flow Rate FiO2 07/11/16 16:00 93 Room Air 07/11/16 16:00 36.7 95 18 179/81 93 Room Air 07/11/16 13:20 67 07/11/16 12:00 36.8 64 18 140/70 95 Room Air 07/11/16 12:00 95 Room Air 07/11/16 11:07 59 07/11/16 08:36 59 11 95 07/11/16 08:31 58 13 95 07/11/16 08:28 141/90 07/11/16 08:26 58 11 95 07/11/16 08:21 57 13 95 07/11/16 08:16 59 14 95 07/11/16 08:11 59 15 96 07/11/16 08:06 57 13 96 07/11/16 08:04 134/79 07/11/16 07:56 59 15 07/11/16 07:51 66 15 07/11/16 07:46 67 17 07/11/16 07:41 66 15 07/11/16 07:36 70 21 07/11/16 07:31 66 22 07/11/16 07:21 60 96 07/11/16 07:16 59 94 07/11/16 07:11 59 96 07/11/16 07:06 60 95 07/11/16 07:01 61 94 07/11/16 06:58 141/78 07/11/16 06:56 59 95 07/11/16 06:51 60 94 07/11/16 06:46 58 94 07/11/16 06:41 59 94 07/11/16 06:36 59 13 94 07/11/16 06:31 61 14 94 07/11/16 06:28 161/87 07/11/16 06:26 61 18 96 07/11/16 06:21 58 11 95 1/5/17 06:21 57 07/11/16 06:16 61 13 95 07/11/16 06:11 57 14 92 07/11/16 06:06 59 14 93 07/11/16 06:01 58 13 92 07/11/16 05:59 129/72 07/11/16 05:59 65 16 143/83 94 Room Air 07/11/16 05:56 57 12 93 07/11/16 05:51 56 14 94 07/11/16 05:46 63 25 95 07/11/16 05:41 56 13 96 07/11/16 05:36 58 11 95 07/11/16 05:31 58 11 95 07/11/16 05:28 165/93 07/11/16 05:26 58 13 94 07/11/16 05:21 60 10 95 07/11/16 05:21 36.5 65 16 143/83 94 Room Air 07/11/16 05:16 57 12 95 07/11/16 05:11 57 11 95 07/11/16 05:06 62 14 93 07/11/16 05:01 63 19 95 07/11/16 04:59 138/91 07/11/16 04:57 143/83 07/11/16 04:56 67 19 95 07/11/16 04:51 61 13 94 07/11/16 04:46 61 12 95 07/11/16 04:41 63 13 07/11/16 04:36 64 13 07/11/16 04:31 62 10 07/11/16 04:28 111/79 07/11/16 04:26 63 12 07/11/16 04:21 62 11 07/11/16 04:16 60 11 07/11/16 04:11 60 10 94 07/11/16 04:06 59 12 93 07/11/16 04:01 61 10 93 07/11/16 03:59 141/84 07/11/16 03:56 65 11 91 07/11/16 03:51 61 8 91 07/11/16 03:46 61 8 88 07/11/16 03:41 61 12 92 07/11/16 03:36 60 7 93 07/11/16 03:32 62 18 134/80 95 Room Air 07/11/16 03:31 61 7 94 07/11/16 03:29 134/80 07/11/16 03:26 61 10 95 07/11/16 03:21 61 6 94 07/11/16 03:16 62 17 96 07/11/16 03:11 69 17 95 07/11/16 03:06 62 16 95 07/11/16 03:05 148/82 07/11/16 03:01 62 13 95 07/11/16 02:56 62 17 94 07/11/16 02:51 62 16 94 07/11/16 02:46 62 17 93 07/11/16 02:41 65 18 95 07/11/16 02:36 66 12 94 07/11/16 02:31 65 13 93 07/11/16 02:26 64 14 94 07/11/16 02:24 67 07/11/16 02:21 68 22 07/11/16 02:21 36.5 63 18 135/85 95 Room Air 07/11/16 02:19 135/85 07/11/16 02:15 Room Air Lab Results: Results Past 24 Hours Test 07/11/16 01:40 07/11/16 07:56 07/11/16 09:58 07/11/16 11:44 Range/Units White Blood Count 5.59 4.8-10.8 K/uL Red Blood Count 4.24 4.7-6.1 M/uL Hemoglobin 13.1 14.0-18.0 g/dL Hematocrit 37.3 42-52 % Mean Corpuscular Volume 88.0 80-100 fL Mean Corpuscular Hemoglobin 30.9 25-34 pg Mean Corpuscular Hemoglobin Concent 35.1 32-36 g/dl Platelet Count 144 130-400 K/uL Mean Platelet Volume 10.6 7.4-10.4 fL Neutrophils (%) (Auto) 43.6 % Lymphocytes (%) (Auto) 39.5 % Monocytes (%) (Auto) 7.9 % Eosinophils (%) (Auto) 8.6 % Basophils (%) (Auto) 0.4 % Neutrophils # (Auto) 2.44 1.4-6.5 K/uL Lymphocytes # (Auto) 2.21 1.2-3.4 K/uL Monocytes # (Auto) 0.44 0.11-0.59 K/uL Eosinophils # (Auto) 0.48 0-0.5 K/uL Basophils # (Auto) 0.02 0-0.2 K/uL RDW Standard Deviation 41.1 36.4-46.3 fL RDW Coefficient of Variation 12.8 11.5-14.5 % Immature Granulocyte % (Auto) 0.0 % Immature Granulocyte # (Auto) 0.00 0.00-0.02 K/uL Prothrombin Time 10.2 9.0-12.0 SECONDS Prothromb Time International Ratio 1.0 0.9-1.1 Activated Partial Thromboplast Time 27.1 21.0-31.0 SECONDS Partial Thromboplastin Ratio 1.0 Sodium Level 143 136-145 mmol/L Potassium Level 3.9 3.5-5.1 mmol/L Chloride Level 106 98-107 mmol/L Carbon Dioxide Level 26 21-32 mmol/L Anion Gap 11.0 3-11 mmol/L Blood Urea Nitrogen 10 7-18 mg/dl Creatinine 1.30 0.60-1.40 mg/dl Est Creatinine Clear Calc Drug Dose 60.3 ml/min Estimated GFR () 63.2 Estimated GFR (Non- 54.5 BUN/Creatinine Ratio 7.6 10-20 Random Glucose 160 70-99 mg/dl Calcium Level 8.8 8.5-10.1 mg/dl Total Creatine Kinase 208 154 39-308 U/L Creatine Kinase MB 2.6 2.3 0.5-3.6 ng/ml Creatine Kinase MB Ratio 1.3 1.5 0-3.0 Troponin I 0.105 0.101 0-0.045 ng/ml Bedside Glucose 198 122 70-99 mg/dl Test 07/11/16 12:04 07/11/16 17:08 07/11/16 18:02 Range/Units Lactic Acid Level 1.4 0.4-2.0 mmol/L Total Bilirubin 0.9 0.2-1 mg/dl Direct Bilirubin 0.5 0-0.2 mg/dl Aspartate Amino Transf (AST/SGOT) 143 15-37 U/L Alanine Aminotransferase (ALT/SGPT) 94 12-78 U/L Alkaline Phosphatase 46 45-117 U/L Total Protein 6.6 6.4-8.2 gm/dl Albumin 3.9 3.4-5.0 gm/dl Lipase 171 73-393 U/L Bedside Glucose 148 70-99 mg/dl Total Creatine Kinase 165 39-308 U/L Creatine Kinase MB 1.7 0.5-3.6 ng/ml Creatine Kinase MB Ratio 1.0 0-3.0 Troponin I 0.112 0-0.045 ng/ml
[2016-07-11 20:00] VITALS: O2SAT 93
[2016-07-11 20:14] VITALS: BP 116/63; PULSE 81; TEMP 37; O2SAT 93
[2016-07-11] MEDS: PANTOprazole INJ 40 MG in SYRINGE 0 ML IV SCH (20:28)
[2016-07-12] VITALS (9 sets, daily range): BP systolic 108–165; BP diastolic 58–89; PULSE 58–79; TEMP 36.3–37.1; O2SAT 90–96
[2016-07-12] MEDS: SODIUM CHLORIDE 0.9% 1000ML 1,000 ML IV SCH ×3 (04:54→20:28)
[2016-07-12] MEDS: BISMUTH SUBSALICYLATE SUSP PO SCH ×2 (05:40→11:25)
[2016-07-12] MEDS: LEVOTHYROXINE 25 MCG TAB PO SCH (05:41)
[2016-07-12] MEDS: HEPARIN SOD 5000 UNIT/0.5 ML CARP SQ SCH ×2 (05:41→13:45)
[2016-07-12 07:43] LABS: CHOLESTEROL/HDL RATIO 2.3
[2016-07-12] MEDS: MEMANTINE 5 MG TAB PO SCH ×2 (09:00→20:27)
[2016-07-12] MEDS: LISINOPRIL 5 MG TAB PO SCH (09:00)
[2016-07-12] MEDS: ISOSORBIDE MONONITRATE 30 MG TABCR PO SCH (09:00)
[2016-07-12] MEDS: ROSUVASTATIN CALCIUM 20 MG TAB PO SCH (09:00)
[2016-07-12] MEDS: ASPIRIN 81 MG ECTAB PO SCH (09:00)
[2016-07-12] MEDS: CLOPIDOGREL BISULFATE 75 MG TAB PO SCH (09:00)
[2016-07-12] MEDS: AMLODIPINE BESYLATE 5 MG TAB PO SCH (09:00)
[2016-07-12] MEDS: METOPROLOL SUCC 25MG EXT REL TAB PO SCH (09:00)
[2016-07-12] MEDS: ESCITALOPRAM OXALATE 20 MG TAB PO SCH (09:00)
[2016-07-12] MEDS: INSULIN ASPART 100 UNITS/ML 3 ML PEN SC SCH ×4 (09:05→21:09)
[2016-07-12] MEDS: PANTOprazole INJ 40 MG in SYRINGE 0 ML IV SCH (09:07)
--- NOTE | 2016-07-12 09:12 | Cardiology Follow-Up ---
Subjective Subjective Date of Service: Jul 12, 2016. Pt evaluation today including: conversation w/ patient, conversation w/ family , physical exam, chart review, lab review, review of studies, conversation w/ instructional design consultant, review of inpatient medication list Additional Details: Pt seen and examined with , daughter and granddaughter at bedside. States that he's feeling ok, doesn't remember if chest discomfort or abdominal discomfort overnight. No events reported. Tele reviewed: sinus rhythm without arrhythmia or significant ectopy. Problem List Medical Problems: (1) Abnormal EKG Status: Acute (2) Acute chest pain Status: Acute (3) Elevated troponin Status: Acute (4) Elevated troponin Status: Acute (5) Left sided chest pain Status: Acute (6) Left sided chest pain Status: Acute (7) Substernal chest pain Status: Acute Review of Systems Constitutional: No chills, No fever Respiratory: No cough, No dyspnea at rest, No dyspnea on exertion, No hemoptysis, No problem reported, No see HPI, No shortness of breath, No sputum, No wheezing Cardiac: No PND, No chest pain, No claudication, No edema, No orthopnea, No palpitations, No problem reported, No see HPI Objective Vital Signs Last Vital Signs Documentation Date Time Temp Pulse Resp B/P Pulse Ox O2 Delivery O2 Flow Rate FiO2 07/12/16 07:50 Room Air 07/12/16 07:26 37.1 69 20 142/73 90 Physical Exam: General Appearance: WD/WN, no apparent distress, + pertinent finding ( pleasantly confused, at baseline) Eyes: bilateral eyes EOMI, bilateral eyes PERRL, bilateral eyes normal inspection ENT: normal ENT inspection, hearing grossly normal, pharynx normal Neck: supple, no adenopathy, thyroid normal, no JVD, no carotid bruits, trachea midline Respiratory/Chest: chest non-tender, lungs clear, normal breath sounds, no respiratory distress, no accessory muscle use Cardiovascular: regular rate, rhythm, no edema, no JVD, no murmur, + gallop/S4 Abdomen: normal bowel sounds, soft, no organomegaly, no pulsatile mass, + tenderness Extremities: normal inspection, no pedal edema, no calf tenderness Neurologic/Psychiatric: cake knocker II-XII nml as tested, no motor/sensory deficits, alert, normal mood/affect Skin: normal color, warm/dry, no rash Lymphatic: no adenopathy Assessment and Plan 1. abdominal/chest discomfort no sign of ischemia slight troponin elevation, baseline possible element of microvascular dysfunction however, believe GI to be the main component of symptoms I actually referred him for gerd eval at last outpatient visit explained given history patient would be a moderate risk for adverse cardiac event during egd, risk approx <5%. also explained benefits of procedure patient, , daughter and granddaughter all state that they understand, are accepting of risk and wish to proceed no need to delay from cardiac standpoint 2. CAD possible microvascular dysfunction cont medical therapy
[2016-07-12] MEDS ORDERED: LIDOCAINE HCL 2% 2 ML VIAL (20MG/ML) ONE (13:44)
[2016-07-12] MEDS ORDERED: PHENYLEPHRINE 100MCG/ML 5ML SYR ONE (13:44)
[2016-07-12] MEDS ORDERED: PROPOFOL IV EMULSION 10 MG/ML 20 ML VIAL IV ONE (13:44)
--- NOTE | 2016-07-12 13:45 | GI REPORT ---
Procedure Date: 07/12/2016 12:36 PM Procedure: Upper GI endoscopy Indications: Unexplained chest pain Medicines: See the Anesthesia note for documentation of the administered medications Complications: No immediate complications. Estimated Blood Loss: Estimated blood loss: none. Procedure: Pre-Anesthesia Assessment: - ASA Grade Assessment: III - A patient with severe systemic disease. After obtaining informed consent, the endoscope was passed under direct vision. Throughout the procedure, the patient's blood pressure, pulse, and oxygen saturations were monitored continuously. The scope was introduced through the mouth, and advanced to the second part of duodenum. The upper GI endoscopy was accomplished without difficulty. The patient tolerated the procedure well. Findings: The examined esophagus was normal. The entire examined stomach was normal. The duodenal bulb was normal. There was a large diverticulum in the second portion of the duodenum. A single 10 mm sessile polyp with no bleeding was found in the second part of the duodenum. The polyp was removed with a hot snare. The polyp was removed with a saline injection-lift technique using a hot snare. The polyp was removed with a piecemeal technique using a hot snare. Resection and retrieval were complete. To prevent bleeding after the polypectomy, five hemostatic clips were successfully placed. There was no bleeding at the end of the procedure. Impression: - Normal esophagus. - Normal stomach. - Normal duodenal bulb. - A single duodenal polyp. Resected and retrieved. Clips were placed. Recommendation: - Discharge patient to floor. NPO only today, due to polypectomy. IV PPI gtt x 24 hours. Mary Da Silva MD 07/12/2016 1:44:14 PM This report has been signed electronically. Note Initiated On: 07/12/2016 12:36 PM
--- NOTE | 2016-07-12 14:26 | Anesthesiology Progress Note ---
Anesthesia Post Op Note Date & Time Jul 12, 2016 at 14:26 Vital Signs Pain Intensity: 0 Vital Signs Past 12 Hours Date Time Temp Pulse Resp B/P Pulse Ox O2 Delivery O2 Flow Rate FiO2 07/12/16 14:17 57 20 107/55 98 Nasal Cannula 3 07/12/16 14:00 56 20 105/57 98 Nasal Cannula 3 07/12/16 13:40 62 20 114/56 96 Nasal Cannula 3 07/12/16 12:00 37.0 65 20 135/72 94 Room Air 07/12/16 11:52 36.9 63 18 108/58 92 Room Air 07/12/16 11:45 Room Air 07/12/16 07:50 Room Air 07/12/16 07:26 37.1 69 20 142/73 90 Room Air 07/12/16 04:15 36.5 74 20 154/80 90 Room Air 07/12/16 04:00 Room Air Notes Mental Status: alert / awake / arousable, participated in evaluation Pt Amnestic to Procedure: Yes Nausea / Vomiting: adequately controlled Pain: adequately controlled Airway Patency, RR, SpO2: stable & adequate BP & HR: stable & adequate Hydration State: stable & adequate Anesthetic Complications: no major complications apparent
--- NOTE | 2016-07-12 15:08 | Progress Note ---
Progress Note Pt with no findings on EGD to explain chest pain. He did have, as an incidental finding, a large duodenal polyp that was removed. He is at high risk for post-polypectomy bleeding -- would give pt PPI gtt for 24 hrs, and cont clears for 24 hours; advance diet tomorrow to regular, as tolerated. PLEASE HOLD PLAVIX AND PEPTO-BISMOL for 1 week. PLEASE HOLD ASPIRIN FOR TODAY; MAY RESUME LOW DOSE ASA TOMORROW IF NO EVIDENCE OF BLEEDING.
[2016-07-12] MEDS: PANTOprazole INJ 40 MG in DEXTROSE 5% 100ML IV SCH ×2 (15:44→20:28)
--- NOTE | 2016-07-12 18:51 | Progress Note ---
Internal Med Progress Note Date of Service: Jul 12, 2016. Provider Documentation: SUBJECTIVE: s/p egd today and one poly removed denies any chest pain or abdominal pain today no nausea afebrile Exam: General-alert and oriented x 3 ENT-normal hearing Neck-no neck masses Lungs-cta b/l no wheezing or crackles Heart-s1 and s2 heard regular rate and rhythm, no murmurs Abdomen-soft bowel sounds present non tender no distension Extremities-no edema no erythema Neuro-alert and awake moves extremities ASSESSMENT & PLAN: This is a 71 year old male with PMH of CAD s/p CABG x 3, chronic stable angina, GERD, HLD, HTN, mild underlying dementia, DM2, hypothyroidism presents with worsening chest pain Chronic Stable Angina in the setting of CAD Hx of CABG in 1996 Had cardiac cath in January 2016 - patent grafts Has troponin elevation chronically recurrence of anginal symptoms, improved with SL nitro, nitro paste, fentanyl on ASA, Plavix, Imdur, CCB, b-jos, MARGY-I seen by cariology and at that time patinet pain was more in abdominal region non cardiac as per cardiology.. Abdominal pain ct abd/pelvis, kub and US unremarkable s/p EGD today and one polyb removed to hold aspirin and Plavix for today and to restart aspirin in am if no bleeding ppi for 24hrs clears for today currently asymptomatic DM2 on ISS will monitor GERD PPI as above Hypothyroidism on Synthroid HTN on amlodipine, Imdur, lisinopril and Lopressor will monitor DVT ppx scds DISPOSITION possible d/c in am if stable Vital Signs: Date Time Temp Pulse Resp B/P Pulse Ox O2 Delivery O2 Flow Rate FiO2 07/12/16 17:10 36.9 64 20 165/89 93 Room Air 07/12/16 16:10 36.3 63 20 131/79 96 Nasal Cannula 1.0 07/12/16 15:40 36.3 64 20 125/65 95 Nasal Cannula 2.0 07/12/16 15:10 36.9 58 20 129/78 93 Nasal Cannula 2.0 07/12/16 14:17 57 20 107/55 98 Nasal Cannula 3 07/12/16 14:00 56 20 105/57 98 Nasal Cannula 3 07/12/16 13:40 62 20 114/56 96 Nasal Cannula 3 07/12/16 12:00 37.0 65 20 135/72 94 Room Air 07/12/16 11:52 36.9 63 18 108/58 92 Room Air 07/12/16 11:45 Room Air 07/12/16 07:50 Room Air 07/12/16 07:26 37.1 69 20 142/73 90 Room Air 07/12/16 04:15 36.5 74 20 154/80 90 Room Air 07/12/16 04:00 Room Air 07/12/16 00:16 36.8 79 20 122/63 93 Room Air 07/12/16 00:00 Room Air 07/11/16 20:52 Room Air 07/11/16 20:14 37.0 81 16 116/63 93 Room Air 07/11/16 20:00 93 Room Air Lab Results: Results Past 24 Hours Test 07/11/16 20:39 07/12/16 06:30 07/12/16 07:34 07/12/16 11:38 Range/Units Bedside Glucose 164 140 145 70-99 mg/dl Triglycerides Level 91 0-150 mg/dl Cholesterol Level 77 0-200 mg/dl HDL Cholesterol 34 mg/dl LDL Cholesterol, Calculated 25 mg/dl VLDL Cholesterol, Calculated 18 mg/dl Cholesterol/HDL Ratio 2.3 Test 07/12/16 16:16 Range/Units Bedside Glucose 124 70-99 mg/dl
[2016-07-12] MEDS: MoRPHine SULFATE 2 MG/ML CARP IV PRN (20:27)
[2016-07-13 01:08] VITALS: BP 178/91; PULSE 69; TEMP 37.2; O2SAT 92
[2016-07-13] MEDS: PANTOprazole INJ 40 MG in DEXTROSE 5% 100ML IV SCH ×3 (02:20→11:35)
[2016-07-13 04:51] VITALS: BP 147/75; PULSE 75; TEMP 37; O2SAT 92
[2016-07-13] MEDS: SODIUM CHLORIDE 0.9% 1000ML 1,000 ML IV SCH (05:05)
[2016-07-13] MEDS: LEVOTHYROXINE 25 MCG TAB PO SCH (06:47)
[2016-07-13 07:43] VITALS: BP 171/91; PULSE 66; TEMP 36.9; O2SAT 95
[2016-07-13] MEDS: ROSUVASTATIN CALCIUM 20 MG TAB PO SCH (08:43)
[2016-07-13] MEDS: LISINOPRIL 5 MG TAB PO SCH (08:43)
[2016-07-13] MEDS: ISOSORBIDE MONONITRATE 30 MG TABCR PO SCH (08:44)
[2016-07-13] MEDS: MEMANTINE 5 MG TAB PO SCH (08:44)
[2016-07-13] MEDS: ESCITALOPRAM OXALATE 20 MG TAB PO SCH (08:45)
[2016-07-13] MEDS: METOPROLOL SUCC 25MG EXT REL TAB PO SCH (08:45)
[2016-07-13] MEDS: AMLODIPINE BESYLATE 5 MG TAB PO SCH (08:45)
[2016-07-13] MEDS: INSULIN ASPART 100 UNITS/ML 3 ML PEN SC SCH ×2 (08:53→12:39)
[2016-07-13 12:11] VITALS: BP 143/76; PULSE 61; TEMP 36.6; O2SAT 95
--- NOTE | 2016-07-13 13:47 | GASTROENTEROLOGY PROGRESS NOTE ---
DATE: 07/13/2016 DATE: 07/13/2016. Cross coverage for [facility]. SUBJECTIVE: I had the pleasure of seeing Ion Villareal today at his bedside. He is feeling well. He denied any fevers, chills, nausea, vomiting, diarrhea, hematemesis, melena or hematochezia. He is tolerating p.o. intake and has passed gas, but has not had a bowel movement. OBJECTIVE: VITAL SIGNS: Temp 36.6, pulse 61, respirations 18, blood pressure 143/76, pulse ox 95% on room air. GENERAL: Awake, cooperative. No acute distress. ABDOMEN: Soft, nontender, nondistended. Positive bowel sounds. IMPRESSION: This is a 71-year-old male who underwent upper endoscopy for chest pain and was subsequently found to have a large duodenal polyp which was removed by Dr. Carlisle yesterday. PLAN: Would recommend that the patient be continued on his Protonix drip. He can resume his low dose aspirin therapy today. His Plavix and Pepto-Bismol should be held for a total of 1 week and I will follow his clinical course and make further recommendations as needed. Once again, thanks for allowing me to participate in the care of this patient. If you have any further questions, please do not hesitate in contacting me.
--- NOTE | 2016-07-13 15:12 | Discharge Instructions ---
Discharge Instructions Admission Reason for Admission: Chest Pain Discharge Discharge Diagnosis / Problem: chest pain, abdominal pain Discharge Goals Goal(s): Decrease discomfort, Improve function Activity Recommendations Activity Limitations: resume your previous activity . Instructions / Follow-Up Instructions / Follow-Up FOLLOWUP WITH FAMILY DOCTOR ON Jul AT 3:20PM FOLLOWUP WITH CARDIOLOGY SCHEDULED. PLEASE HOLD PLAVIX AND PEPTO-BISMOL AND FISH OIL FOR ONE WEEK AND THEN RESUME PRESCRIBED . Current Hospital Diet Patient's current hospital diet: AHA Diet (Heart Healthy), Low Fiber Diet Discharge Diet Recommended Diet: AHA Diet (Heart Healthy) Procedures Procedures Performed: EGD with clip placement NSS injection and polypectomy Pending Studies Studies pending at discharge: no Laboratory Results Hemoglobin A1c Test 05/21/16 06:30 Range/Units Estimated Average Glucose 174 mg/dl Hemoglobin A1c 7.7 H 4.5-5.6 % Lipid Panel Test 07/12/16 06:30 Range/Units Triglycerides Level 91 0-150 mg/dl Cholesterol Level 77 0-200 mg/dl HDL Cholesterol 34 mg/dl Cholesterol/HDL Ratio 2.3 LDL Cholesterol, Calculated 25 mg/dl Medical Emergencies . Who to Call and When: Medical Emergencies: If at any time you feel your situation is an emergency, please call 911 immediately. . Non-Emergent Contact Non-Emergency issues call your: Primary Care Provider . . "Provider Documentation" section prepared by Marcel Santos. VTE Core Measure Inpt VTE Proph given/why not?: SCD's
[2016-07-13 15:38] VITALS: BP 143/76; PULSE 61; TEMP 36.6; O2SAT 95
[2016-07-13 15:56] VITALS: BP 143/76; PULSE 58; TEMP 36.5; O2SAT 95
--- NOTE | 2016-07-13 19:29 | Progress Note ---
Internal Med Progress Note Date of Service: Jul 13, 2016. Provider Documentation: SUBJECTIVE: resting comfortably no nausea or abdominal pain afebrile tolerating diet want to go home no chest pain or sob . Exam: General-alert and oriented x 3 ENT-normal hearing Neck-no neck masses Lungs-cta b/l no wheezing or crackles Heart-s1 and s2 heard regular rate and rhythm, no murmurs Abdomen-soft bowel sounds present non tender no distension Extremities-no edema no erythema Neuro-alert and awake moves extremities ASSESSMENT & PLAN: This is a 71 year old male with PMH of CAD s/p CABG x 3, chronic stable angina, GERD, HLD, HTN, mild underlying dementia, DM2, hypothyroidism presents with worsening chest pain Chronic Stable Angina in the setting of CAD Hx of CABG in 1996 Had cardiac cath in January 2016 - patent grafts Has troponin elevation chronically recurrence of anginal symptoms, improved with SL nitro, nitro paste, fentanyl on ASA, Plavix, Imdur, CCB, b-jos, MARGY-I seen by cariology and at that time patinet pain was more in abdominal region non cardiac as per cardiology asymptomatic.. f/u with cardiology Abdominal pain ct abd/pelvis, kub and US unremarkable s/p EGD today and one polyb removed to hold aspirin and Plavix for today and to restart aspirin in am if no bleeding ppi for 24hrs clears for today to hold Plavix and Pepto Bismol for one week currently asymptomatic DM2 on ISS will monitor GERD PPI Hypothyroidism on Synthroid HTN on amlodipine, Imdur, lisinopril and Lopressor will monitor Discharged home Vital Signs: Date Time Temp Pulse Resp B/P Pulse Ox O2 Delivery O2 Flow Rate FiO2 07/13/16 15:56 36.5 58 16 143/76 95 Room Air 07/13/16 15:38 36.6 61 18 95 Room Air 07/13/16 12:11 36.6 61 18 143/76 95 Room Air 07/13/16 12:00 Room Air 07/13/16 07:45 Room Air 07/13/16 07:43 36.9 66 20 171/91 95 Room Air 07/13/16 04:51 37.0 75 20 147/75 92 Room Air 07/13/16 01:08 37.2 69 20 178/91 92 Room Air 07/12/16 19:48 36.7 65 20 162/83 90 Room Air Lab Results: Results Past 24 Hours Test 07/12/16 20:04 07/13/16 07:33 07/13/16 12:03 Range/Units Bedside Glucose 144 143 151 70-99 mg/dl
--- NOTE | 2016-07-13 19:59 | Discharge Summary ---
Discharge Summary Admission Date: Jul 11, 2016 at 03:53 Discharge Date: Jul 13, 2016 Discharge Disposition: Home Principal Diagnosis: CHEST PAIN ABDOMINAL PAIN Secondary Diagnoses/Problems: (1) Adhesive capsulitis Status: Chronic (2) Alzheimer's dementia Status: Chronic (3) BPH (benign prostatic hyperplasia) Status: Chronic (4) Coronary artery disease Permanent Comment: s/p CABG x 3 in 1996 Status: Chronic (5) Diverticular disease of colon Status: Chronic (6) Dyslipidemia Status: Chronic (7) Gastroesophageal reflux disease Status: Chronic (8) Hearing loss Status: Chronic (9) Hypertension Status: Chronic (10) Hypothyroidism Status: Chronic (11) Osteoarthritis Status: Chronic Procedures: KUB: Unremarkable bowel gas pattern. No evidence for bowel obstruction. CT ABD/PELVIS: No significant abnormality identified within the abdomen or pelvis. BILIARY US: 1. Increased hepatic echogenicity, most likely secondary to hepatic steatosis. 2. No gallstones identified 3. No evidence of ductal dilatation S/P EGD Consultations: CARDIOLOGY GI Medication Reconciliation Continued Medications: Acetaminophen (Tylenol) 500 Mg Tab 1000 MG PO DIRECTED PRN for Pain Amlodipine Besylate (Amlodipine Besylate) 5 Mg Tab 2.5 MG PO QAM for 30 Days, #15 TAB 5 Refills Amoxicillin (Amoxil) 500 Mg Cap MG PO UD PRN for prior to dental work Aspirin (Aspirin) 81 Mg Tab 81 MG PO DAILY Cholecalciferol (Vitamin D3) 1,000 Unit Tab 1000 MG PO DAILY for 90 Days, TAB 3 Refills Cholecalciferol (Vitamin D3) 1,000 Unit Tab 1 TAB PO DAILY for 90 Days, #90 TAB 3 Refills Clopidogrel (Plavix) 75 Mg Tab 75 MG PO DAILY, TAB Escitalopram Oxalate (Lexapro) 20 Mg Tab 20 MG PO DAILY, TAB Fish Oil ([place]-3) 1 Ea Cap 1 CAPSULE PO BID, 0 Refills Fluticasone Propionate (Flonase Nasal [place]) 120 Sprays/6000 Mcg [place] 2 SPRAYS FEROZ DAILY Isosorbide Mononitrate (Isosorbide Mononitrate ER) 30 Mg Tabcr 90 MG PO QAM for 30 Days, #90 TABS 6 Refills Levothyroxine Sodium (Levothyroxine Sodium) 25 Mcg Tab 1 TAB PO DAILY Lisinopril (Lisinopril) 5 Mg Tab 5 MG PO DAILY for 30 Days, #30 TAB 5 Refills Memantine (Namenda) 5 Mg Tab 5 MG PO BID, TAB Metoprolol Succinate (Toprol Xl) 25 Mg Tabcr 25 MG PO DAILY Nitroglycerin (Nitrostat) 0.4 Mg Tab 0.4 MG UT PRN PRN for CHEST PAIN, BTL PLACE 1 PILL UNDER THE TONGUE EVERY 5 MIN FOR CHEST PAIN FOR A TOTAL OF 3 DOSES. Pantoprazole (Protonix) 40 Mg Tab 40 MG PO DAILY, #30 TAB Rosuvastatin Calcium (Crestor) 40 Mg Tab 1 TAB PO DAILY for 30 Days, #30 TAB 5 Refills Sitagliptin (Januvia) 50 Mg Tab 50 MG PO DAILY, TAB Vitamin A-Beta Carotene (Vitamin A) 1 Tab Tab 1000 MG PO DAILY Admission Information HPI (per Admitting provider): This is a 71 year old male with PMH of CAD s/p CABG x 3, chronic stable angina, GERD, HLD, HTN, mild underlying dementia, DM2, hypothyroidism presents with worsening chest pain - he has had this same chest pain during previous admissions; states that the chest pain started suddenly while seated at home; as per , she states that he was diaphoretic and pale - he took two SL nitro at home with little improvement; took another nitro on the way here, nitro paste added for the patient as well as fentanyl in the ER - he feels much better now. He had a cardiac catheterization in January 2016, showing patent grafts. During previous admission in May, he had a few adjustments in his medications, including increasing in his imdur dose, as well as the addition of a calcium channel jos. Currently comfortable and in good spirits. 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, no motor/sensory deficits, alert , normal mood/affect, oriented x 3 Skin: normal color Lymphatic: no adenopathy Physical Exam (per Admitting): General Appearance: no apparent distress Head: normocephalic, atraumatic Eyes: normal inspection Respiratory/Chest: chest non-tender, lungs clear, normal breath sounds, no respiratory distress, no accessory muscle use Cardiovascular: regular rate, rhythm, no edema, no gallop, no JVD, no murmur, normal peripheral pulses Abdomen/GI: normal bowel sounds, non tender, soft Extremities/Musculoskelatal: no calf tenderness, normal capillary refill, no pedal edema 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, no motor/sensory deficits, alert, normal mood/affect, oriented x 3 Skin: normal color Lymphatic: no adenopathy Hospital Course This is a 71 year old male with PMH of CAD s/p CABG x 3, chronic stable angina, GERD, HLD, HTN, mild underlying dementia, DM2, hypothyroidism presents with worsening chest pain Chronic Stable Angina in the setting of CAD Hx of CABG in 1996 Had cardiac cath in January 2016 - patent grafts Has troponin elevation chronically recurrence of anginal symptoms, improved with SL nitro, nitro paste, fentanyl on ASA, Plavix, Imdur, CCB, b-jos, MARGY-I seen by cariology and at that time patinet pain was more in abdominal region non cardiac as per cardiology asymptomatic.. f/u with cardiology Abdominal pain ct abd/pelvis, kub and US unremarkable s/p EGD today and one polyb removed to hold aspirin and Plavix for today and to restart aspirin in am if no bleeding ppi for 24hrs clears for today to hold Plavix and Pepto Bismol for one week currently asymptomatic DM2 on ISS will monitor GERD PPI Hypothyroidism on Synthroid HTN on amlodipine, Imdur, lisinopril and Lopressor will monitor Discharged home Total time spent on discharge = 35MINUTES This includes examination of the patient, discharge planning, medication reconciliation, and communication with other providers. Discharge Instructions Please take this sheet to every appointment for the next month Discharge Instructions Admission Reason for Admission: Chest Pain Discharge Discharge Diagnosis / Problem: chest pain, abdominal pain Discharge Goals Goal(s): Decrease discomfort, Improve function Activity Recommendations Activity Limitations: resume your previous activity . Instructions / Follow-Up Instructions / Follow-Up FOLLOWUP WITH FAMILY DOCTOR ON Jul AT 3:20PM FOLLOWUP WITH CARDIOLOGY SCHEDULED. PLEASE HOLD PLAVIX AND PEPTO-BISMOL AND FISH OIL FOR ONE WEEK AND THEN RESUME PRESCRIBED . Current Hospital Diet Patient's current hospital diet: AHA Diet (Heart Healthy), Low Fiber Diet Discharge Diet Recommended Diet: AHA Diet (Heart Healthy) Procedures Procedures Performed: EGD with clip placement NSS injection and polypectomy Pending Studies Studies pending at discharge: no Laboratory Results Hemoglobin A1c Test 05/21/16 06:30 Range/Units Estimated Average Glucose 174 mg/dl Hemoglobin A1c 7.7 H 4.5-5.6 % Lipid Panel Test 07/12/16 06:30 Range/Units Triglycerides Level 91 0-150 mg/dl Cholesterol Level 77 0-200 mg/dl HDL Cholesterol 34 mg/dl Cholesterol/HDL Ratio 2.3 LDL Cholesterol, Calculated 25 mg/dl Medical Emergencies . Who to Call and When: Medical Emergencies: If at any time you feel your situation is an emergency, please call 911 immediately. . Non-Emergent Contact Non-Emergency issues call your: Primary Care Provider . . "Provider Documentation" section prepared by Marcel Santos. VTE Core Measure Inpt VTE Proph given/why not?: SCD's
[2017-01-09] MEDS ORDERED: CHOL20007 PO (11:23)
[2017-01-09] MEDS ORDERED: ROSU40TA PO (11:23)
[2017-01-09] MEDS ORDERED: LISI-461 PO (11:23)
[2017-01-09] MEDS ORDERED: ISOS30TA35 PO (11:23)
[2017-01-09] MEDS ORDERED: LEVO50TA6 PO (11:23)
[2017-01-09] MEDS ORDERED: PANT40TA PO (11:23)
[2017-01-09] MEDS ORDERED: GLIP-199 PO (11:23)
[2017-03-04] MEDS ORDERED: BROM0.07 OPL (12:15)
[2017-03-04] MEDS ORDERED: PRED1SUS OPL (12:15)
[2017-03-04] MEDS ORDERED: FAMO20TA11 PO (12:23)
[2017-04-01] MEDS ORDERED: AMLO2.5T PO (10:04)
== END 2016-07-13 17:00 | disposition home or self-care (01) ==
LOC: ENRESERVTM → ENRESERVDT → EDBD 02:11 → C.EDA 02:12 → C.EDINP 03:53 → C.MED 15:22
PROVIDERS: ADMIT Family Medicine; ATTEND Internal Medicine
DX: I25.119 Atherosclerotic heart disease of native coronary artery with unspecified angina pectoris (principal); R10.9 Unspecified abdominal pain; K31.7 Polyp of stomach and duodenum; G30.9 Alzheimer's disease, unspecified; F02.80 Dementia in other diseases classified elsewhere, unspecified severity, without behavioral disturbance, psychotic disturbance, mood disturbance, and anxiety; N40.0 Benign prostatic hyperplasia without lower urinary tract symptoms; I25.10 Atherosclerotic heart disease of native coronary artery without angina pectoris; K57.30 Diverticulosis of large intestine without perforation or abscess without bleeding; K21.9 Gastro-esophageal reflux disease without esophagitis; E78.5 Hyperlipidemia, unspecified; H91.90 Unspecified hearing loss, unspecified ear; I10 Essential (primary) hypertension; E11.9 Type 2 diabetes mellitus without complications; E03.9 Hypothyroidism, unspecified; M19.90 Unspecified osteoarthritis, unspecified site; Z66 Do not resuscitate; Z95.1 Presence of aortocoronary bypass graft; Z79.82 Long term (current) use of aspirin; Z96.653 Presence of artificial knee joint, bilateral; Z87.891 Personal history of nicotine dependence; Z82.49 Family history of ischemic heart disease and other diseases of the circulatory system

== ENCOUNTER 2016-11-01 08:00 | Observation (INO) | payer OTHER ==
[~2016-11-01] VITALS: Ht 172.7 cm; Wt 97.8 kg
[~2016-11-01 08:00] MED LIST changes: +AMOX500C3 PO; -ASCO1CAP3 PO; -FINA5TAB4 PO; -FURO-85 PO; +VITATAB19 PO
[2016-11-01 08:31] LABS: HEMATOCRIT 39.6 % (42-52); MEAN CELL VOLUME 90.8 fL (80-100); MEAN CORPUSCULAR HGB CONC 34.1 g/dl (32-36); MEAN PLATELET VOLUME 10.4 fL (7.4-10.4); PLATELET COUNT 162 K/uL (130-400); RED BLOOD COUNT 4.36 M/uL (4.7-6.1); WHITE BLOOD COUNT 5.71 K/uL (4.8-10.8)
[2016-11-01] MEDS ORDERED: FLNIN INH (08:36)
[2016-11-01 08:40] LABS: PROTHROMBIN TIME (PATIENT) 10.8 SECONDS (9.0-12.0)
[2016-11-01] MEDS ORDERED: AMLO-110 PO (08:40)
[2016-11-01] MEDS ORDERED: ASCO500T16 PO (08:45)
[2016-11-01] MEDS ORDERED: GLIP5TAB11 PO (08:46)
[2016-11-01] MEDS ORDERED: SODIUM CHLORIDE 0.9% 1000ML 1,000 ML IV STA (08:51)
[2016-11-01 08:52] LABS: ALT/SGPT 64 U/L (12-78); BLOOD UREA NITROGEN 12 mg/dl (7-18); BUN/CREATININE RATIO 10.7 (10-20); CARBON DIOXIDE 26 mmol/L (21-32); CHLORIDE 106 mmol/L (98-107); GLUCOSE 143 mg/dl (70-99); POTASSIUM 4.5 mmol/L (3.5-5.1); SODIUM 139 mmol/L (136-145)
--- NOTE | 2016-11-01 08:55 | DIAGNOSTIC IMAGING REPORT ---
CHEST ONE VIEW PORTABLE HISTORY: Atypical chest pain COMPARISON: Chest 07/11/2016. FINDINGS: The lungs are clear. Cardiac silhouette is mildly enlarged. No pleural effusions. No pneumothorax. Poststernotomy changes. No evidence for pulmonary edema. IMPRESSION: Mild cardiomegaly. Electronically signed by: Emir Avery M.D. 11/01/2016 8:54 AM Dictated Date/Time: 11/01/2016 8:53 AM
[2016-11-01 08:57] LABS: ALB/GLOB RATIO 1.2 (0.9-2); ALKALINE PHOSPHATASE 38 U/L (45-117); AST/SGOT 49 U/L (15-37); CKMB/CK RATIO 1.2 (0-3.0)
[2016-11-01 09:01] LABS: CALCIUM 9.3 mg/dl (8.5-10.1)
[2016-11-01 09:35] LABS: URINE APPEARANCE CLEAR (CLEAR); URINE BILIRUBIN NEG (NEG); URINE COLOR YELLOW; URINE NITRITE NEG (NEG); URINE SPECIFIC GRAVITY 1.022 (1.000-1.030); UROBILINOGEN NEG (NEG)
[2016-11-01 09:37] LABS: MANUAL MICROSCOPIC REQUIRED? NO; REVIEW REQ? NO
--- NOTE | 2016-11-01 10:07 | EMERGENCY ROOM VISIT NOTE ---
ED Visit Note First contact with patient: 08:27 I saw this patient in conjunction with Ion Arriaga PA-C. I agree with his decision making and treatment plan.
[2016-11-01] MEDS ORDERED: ONDANSETRON INJ 2 MG/ML 2 ML VIAL IV PRN (10:30)
[2016-11-01] MEDS ORDERED: NITROGLYCERIN 0.4 MG SL PER TAB CHARGE SL PRN (10:30)
[2016-11-01] MEDS ORDERED: ACETAMINOPHEN 325 MG TAB PO PRN (10:30)
[2016-11-01] MEDS ORDERED: NITROGLYCERIN 0.4 MG SL PER TAB CHARGE SL STA (10:38)
[2016-11-01] MEDS ORDERED: NITROGLYCERIN 0.4 MG SL PER TAB CHARGE ONE (10:44)
[2016-11-01] MEDS ORDERED: GLUCOSE 40% GEL 15 GM TUBE PO PRN (11:15)
[2016-11-01] MEDS ORDERED: DEXTROSE 50% 50 ML SYR IV PRN (11:15)
[2016-11-01] MEDS ORDERED: GLUCAGON FOR INJ 1 MG VIAL SQ PRN (11:15)
[2016-11-01] MEDS ORDERED: GLUCOSE 10 TABS/TUBE PO PRN (11:15)
--- NOTE | 2016-11-01 11:20 | History and Physical ---
History & Physical Date & Time of Service: Nov 01, 2016 at 10:44 Chief Complaint: Chest Pain Primary Care Physician: Roger Jacobs M.D. History of Present Illness Source: patient This is a 71 y/o male with PMHx of CAD s/p CABG, DM 2, CKD stage 3, HTN, Dyslipidemia and other problems as outlined below presents to the ED c/o chest pain that began yesterday evening. History is obtained from both patient and at bedside as patient has Alzheimers Dz. Yesterday evening around 1800 patient was in [employer] with his when she noticed that he was pale, weak and SOB. Patient was also complaining of stomach upset and chest pain. He describes the chest pain as 5/10 "sharp" chest pain that radiates between his shoulder blades. Chest pain is aggravated with exertion. Pt refused to go to the ED last night and gave him some Pepcid before he went to bed. This morning, patient was still experiencing chest pain and EMS was called. Pt has a history of CAD s/p CABG in 1996. He follows with cardiology, Dr. Jay. Pt denies fever/chills, palpitations, abd pain, N/V, bowel or bladder issues, LE edema ,calf pain, lightheadedness/dizziness. In the ED, HR is bradycardic in low 50s. He is afebrile with no leukocytosis. Trop is 0.05 and EKG is unchanged from previous studies. Pt is stable and will be admitted for further evaluation and treatment. Past Medical/Surgical History Medical Problems: (1) Adhesive capsulitis Status: Chronic (2) Alzheimer's dementia Status: Chronic (3) BPH (benign prostatic hyperplasia) Status: Chronic (4) Coronary artery disease Permanent Comment: s/p CABG x 3 in 1996 Status: Chronic (5) Diverticular disease of colon Status: Chronic (6) Dyslipidemia Status: Chronic (7) Gastroesophageal reflux disease Status: Chronic (8) Hearing loss Status: Chronic (9) Hypertension Status: Chronic (10) Hypothyroidism Status: Chronic (11) Osteoarthritis Status: Chronic Surgical Problems: (1) History of bilateral knee arthroplasty Status: Chronic (2) History of inguinal hernia repair Status: Chronic (3) Status post colonoscopy Permanent Comment: 2013 diverticulosis Status: Chronic (4) Status post coronary artery bypass grafting Status: Chronic Family History Coronary artery disease FATHER ([place] in 50's) Social History Smoking Status: Former Smoker (pipe x 20 years; quit 1994) Alcohol Use: none Drug Use: none Marital Status: Housing status: lives with family Occupational Status: retired Immunizations History of Influenza Vaccine: Yes Influenza Vaccine Date: Apr 25, 2015 History of Tetanus Vaccine?: Yes History of Pneumococcal: Yes History of Hepatitis B Vaccine: No Multi-Drug Resistant Organisms History of MDRO: No Allergies Coded Allergies: Dust (Unverified Allergy, Mild, SNEEZING, 11/01/16) Dog Dander (Verified Allergy, Unknown, 07/11/16) Home Medications Scheduled Amlodipine (Norvasc), 5 MG PO DAILY Ascorbic Acid (Ascorbic Acid), 500 MG PO DAILY Aspirin (Aspirin), 81 MG PO DAILY Cholecalciferol (Vitamin D3), 1,000 MG PO DAILY Clopidogrel (Plavix), 75 MG PO DAILY Escitalopram Oxalate (Lexapro), 20 MG PO DAILY Fish Oil ([place]-3), 1 CAPSULE PO BID Fluticasone Propionate (Fluticasone Propionate), 2 SPRAYS INH BID Glipizide (Glucotrol), 5 MG PO BID Isosorbide Mononitrate (Isosorbide Mononitrate ER), 90 MG PO QAM Levothyroxine Sodium (Levothyroxine Sodium), 1 TAB PO DAILY Lisinopril (Lisinopril), 5 MG PO DAILY Memantine (Namenda), 5 MG PO BID Metoprolol Succinate (Toprol Xl), 25 MG PO DAILY Pantoprazole (Protonix), 40 MG PO DAILY Rosuvastatin Calcium (Crestor), 1 TAB PO DAILY Sitagliptin (Januvia), 50 MG PO DAILY Vitamin A-Beta Carotene (Vitamin A), 1,000 MG PO DAILY Scheduled PRN Acetaminophen (Tylenol), 1,000 MG PO DIRECTED PRN for Pain Amoxicillin (Amoxil), MG PO UD PRN for prior to dental work Nitroglycerin (Nitrostat), 0.4 MG UT PRN PRN for CHEST PAIN Review of Systems Constitutional: + fatigue, + weakness, No chills, No fever, No sweats Eyes: No worsening of vision ENT: No hearing loss Respiratory: + dyspnea on exertion, + shortness of breath, No cough, No dyspnea at rest Cardiovascular: + chest pain, No claudication, No edema, No palpitations Abdomen: No constipation, No diarrhea, No nausea, No pain, No vomiting Musculoskeletal: No calf pain, No swelling Genitourinary - Male: No dysuria Neurologic: No weakness Psychiatric: No depression symptoms Endocrine: No fatigue Hematologic / Lymphatic: No abnormal bleeding/bruising Integumentary: No new/changing skin lesions Physical Exam Vital Signs Date Time Temp Pulse Resp B/P Pulse Ox O2 Delivery O2 Flow Rate FiO2 11/01/16 08:13 52 11/01/16 08:03 36.7 51 20 157/87 97 Room Air General Appearance: WD/WN, no apparent distress, + pertinent finding (Pt is laying in bed with at bedside) Head: normocephalic, atraumatic Eyes: normal inspection ENT: hearing grossly normal Neck: supple Respiratory/Chest: chest non-tender, lungs clear, normal breath sounds, no respiratory distress Cardiovascular: no edema, no murmur, + bradycardia Abdomen/GI: normal bowel sounds, non tender, soft Back: normal inspection Extremities/Musculoskelatal: normal inspection, no calf tenderness, no pedal edema Neurologic/Psych: alert, normal mood/affect, oriented x 3 Skin: normal color, warm/dry Diagnostics Laboratory Results Results Past 24 Hours Test 11/01/16 08:10 11/01/16 09:05 11/01/16 09:10 Range/Units White Blood Count 5.71 4.8-10.8 K/uL Red Blood Count 4.36 4.7-6.1 M/uL Hemoglobin 13.5 14.0-18.0 g/dL Hematocrit 39.6 42-52 % Mean Corpuscular Volume 90.8 80-100 fL Mean Corpuscular Hemoglobin 31.0 25-34 pg Mean Corpuscular Hemoglobin Concent 34.1 32-36 g/dl RDW Standard Deviation 42.7 36.4-46.3 fL RDW Coefficient of Variation 12.7 11.5-14.5 % Platelet Count 162 130-400 K/uL Mean Platelet Volume 10.4 7.4-10.4 fL Prothrombin Time 10.8 9.0-12.0 SECONDS Prothromb Time International Ratio 1.0 0.9-1.1 Activated Partial Thromboplast Time 26.3 21.0-31.0 SECONDS Partial Thromboplastin Ratio 1.0 Sodium Level 139 136-145 mmol/L Potassium Level 4.5 3.5-5.1 mmol/L Chloride Level 106 98-107 mmol/L Carbon Dioxide Level 26 21-32 mmol/L Anion Gap 7.0 3-11 mmol/L Blood Urea Nitrogen 12 7-18 mg/dl Creatinine 1.10 0.60-1.40 mg/dl Estimated GFR () 77.3 Estimated GFR (Non- 66.7 BUN/Creatinine Ratio 10.7 10-20 Random Glucose 143 70-99 mg/dl Calcium Level 9.3 8.5-10.1 mg/dl Total Bilirubin 0.8 0.2-1 mg/dl Aspartate Amino Transf (AST/SGOT) 49 15-37 U/L Alanine Aminotransferase (ALT/SGPT) 64 12-78 U/L Alkaline Phosphatase 38 45-117 U/L Total Creatine Kinase 130 39-308 U/L Creatine Kinase MB 1.5 0.5-3.6 ng/ml Creatine Kinase MB Ratio 1.2 0-3.0 Total Protein 6.7 6.4-8.2 gm/dl Albumin 3.7 3.4-5.0 gm/dl Globulin 3.0 2.5-4.0 gm/dl Albumin/Globulin Ratio 1.2 0.9-2 Bedside Troponin I 0.050 0-0.045 ng/ml Urine Color YELLOW Urine Appearance CLEAR CLEAR Urine pH 5.0 4.5-7.5 Urine Specific [place] 1.022 1.000-1.030 Urine Protein NEG NEG Urine Glucose (UA) NEG NEG Urine Ketones NEG NEG Urine Occult Blood NEG NEG Urine Nitrite NEG NEG Urine Bilirubin NEG NEG Urine Urobilinogen NEG NEG Urine Leukocyte Esterase NEG NEG Diagnostic Radiology CXR IMPRESSION: Mild cardiomegaly. EKG EKG: sinus suni at 53 bpm with 1* AV block, RBBB and ST depressions in lateral leads; no significant change when compared to EKG from 07/13/16 Impression Assessment and Plan CHEST PAIN R/O ACS pt presented with chest pain assoc with weakness and SOB; h/o CAD s/p CABG x 3 in 1996 -observation status to telemetry -RFs include h/o CAD s/p CABG, DM 2, HTN, Dyslipidemia, sex and age -EKG no acute changes compared to EKG from July;repeat EKG PRN chest pain and in AM -Initial troponin is 0.05; continue to monitor with serial cardiac enzymes q6h -obtain echo to r/o cardiac wall motion abnormalities -cont ASA and statin; will hold BB for due to bradycardia -consult cardiology, Dr. Camp-pending input -continue to monitor SINUS BRADYCARDIA -EKG suni at 53 bpm -? if related to BB; hold metoprolol for now -monitor on telemetry CKD STAGE III -creatinine around baseline at 1.1 -continue to monitor with prp daily and avoid nephrotoxic agents when able DM 2 -recent A1C 8.6 -hold glipizide and Januvia -start ISS -monitor BSG AC HS ALZHEIMER'S DISEASE -at baseline patient able to hold meaningful conversation; becoming more forgetful -cont Namenda GERD -cont PPI HTN -BP elevated; pt did not take any morning medications -give home all BP meds now except metoprolol (holding due to bradycardia) -monitor DYSLIPIDEMIA -cont statin DVT PROPHYLAXIS -subq Lovenox CODE STATUS -FULL CODE per discussion with patient upon admission DISPO Observation status until further workup is complete. Pt seen in collaboration with Dr. Delaney. Please see his addendum for further details. Thanks! ADDENDUM: This is a 71 year old male with PMH of CAD s/p CABG, HTN, HLD, DM2, CKD stage 3 and underlying dementia presents with a one day history of chest pain, shortness of breath, diaphoresis. He does have a history of anginal symptoms, and coronary artery disease. From what it seems, he is compliant with medications. VITALS: Last Vital Signs Documentation Date Time Temp Pulse Resp B/P Pulse Ox O2 Delivery O2 Flow Rate FiO2 11/01/16 14:13 49 18 115/56 95 Room Air 11/01/16 08:03 36.7 GEN: no acute distress, sleeping prior to my exam, underlying dementia CVS: bradycardia, +S1, S2 LUNGS: CTA b/l, no wheezing ABD: soft, NT/ND EXT: no swelling Atypical Chest Pain CAD s/p CABG Chronic Troponin Elevation patient presented with shortness of breath, chest pain mild elevation of troponin, it is a chronic issue EKG with no acute changes holding b-jos due to bradycardia continue aspirin, Plavix, statin appreciate cardiology input will observe overnight VTE Prophylaxis VTE Risk Assessment Done? Y/N: Yes Risk Level: Moderate
[2016-11-01] MEDS ORDERED: IV FLUIDS COMPLETED PRN (12:15)
[2016-11-01 14:26] VITALS: Ht 172.7 cm; Wt 97.8 kg
[2016-11-01 15:00] VITALS: BP 153/83; PULSE 53; TEMP 36.5; O2SAT 99
[2016-11-01] MEDS ORDERED: PATIENT'S HEIGHT AND/OR WEIGHT NEEDED SCH (15:45)
--- NOTE | 2016-11-01 15:50 | CARDIOLOGY CONSULTATION ---
DATE OF CONSULTATION: 11/01/2016 CONSULTATION FOR: [facility]. REASON FOR CONSULTATION: Chest pain. HISTORY OF PRESENT ILLNESS: This patient is a 71-year-old male with a history of previous coronary artery bypass surgery in 1996 and a repeat cardiac catheterization in January of 2016 that showed patent grafts. He has advanced Alzheimer's type dementia. He is hard to evaluate. His and granddaughter in the room today. I was given a history that his and he were at [facility] yesterday. 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 He was unsteady on his feet and had some chest discomfort. He was taken home by his . He took a Pepcid as he has chronic reflux disease and thought that might be the etiology. He went to bed and then this morning continued to have chest discomfort and was brought to the Emergency Department. His chest pain is reproducible with palpation along the left costophrenic angle. He states that that is the discomfort he had this morning. He has no other complaints. He denies shortness of breath or orthopnea. His heart rates are in the 50s, but he is on metoprolol. His EKG is unchanged from previous. Point of care troponin is 0.05. ALLERGIES: DUST AND PUG DANDER. PAST MEDICAL HISTORY: As outlined above. The patient has a history of coronary artery bypass in 1996. He has been stable from a cardiac standpoint for a long time. Treated for dyslipidemia and hypertension. He has advanced Alzheimer's type dementia. SOCIAL HISTORY: He stopped smoking in 1994. He is and lives with his family. FAMILY MEDICAL HISTORY: Noncontributory. REVIEW OF SYSTEMS: A 10-point review of systems is negative except for the history of chief complaint. PHYSICAL EXAMINATION: GENERAL: He is alert and oriented. VITAL SIGNS: Blood pressure is 140/70, pulse is regular at 50 beats per minute. He is afebrile. HEENT: He is normocephalic. Pupils are equal and reactive to light. Extraocular muscles are intact bilaterally. NECK: The neck veins are flat. Carotids have good upstrokes bilaterally without bruits. Thyroid is nonpalpable. RESPIRATORY: Breath sounds equal bilaterally and clear to auscultation. CARDIOVASCULAR: Heart has a regular rhythm. Normal S1, S2. No S3, S4. No cardiac rubs or murmurs. GASTROINTESTINAL: Abdomen is soft, nontender without organomegaly. EXTREMITIES: Free of edema, digit clubbing, or cyanosis. NEUROLOGIC: Grossly intact. SKIN: Warm to touch. LYMPH NODES: Negative to palpation. IMPRESSION: 1. Atypical chest pain which may be chest wall pain. 2. Known coronary artery disease with prior coronary artery bypass surgery in 1996. 3. Alzheimer's type dementia. RECOMMENDATIONS: At this point, I would just observe the patient and wait for second set of cardiac markers. If his heart rates remain slow then metoprolol can certainly be held.
[2016-11-01] MEDS: AMLODIPINE BESYLATE 5 MG TAB PO SCH (16:17)
[2016-11-01] MEDS: CLOPIDOGREL BISULFATE 75 MG TAB PO SCH (16:18)
[2016-11-01] MEDS: LISINOPRIL 5 MG TAB PO SCH (16:18)
[2016-11-01] MEDS: ROSUVASTATIN CALCIUM 20 MG TAB PO SCH (16:19)
[2016-11-01] MEDS: ISOSORBIDE MONONITRATE 30 MG TABCR PO SCH (16:20)
[2016-11-01] MEDS: PANTOprazole SOD 40 MG TAB PO SCH (16:20)
[2016-11-01] MEDS: INSULIN ASPART 100 UNITS/ML 3 ML PEN SC SCH ×2 (17:12→21:00)
[2016-11-01] MEDS ORDERED: ENOXAPARIN 40 MG/0.4 ML SYR SC SCH (18:00)
[2016-11-01 20:00] VITALS: BP 130/60; PULSE 59; TEMP 36.7; O2SAT 96
[2016-11-01] MEDS: FLUTICASONE PROPIONATE NA SPR 16 GM BTL NAE SCH (21:00)
[2016-11-01] MEDS: OMEGA-3 (PURIFIED FISH OIL) 1 GM CAP PO SCH (21:13)
[2016-11-01] MEDS: MEMANTINE 5 MG TAB PO SCH (21:13)
[2016-11-01 21:45] LABS: CKMB/CK RATIO 1.1 (0-3.0)
[2016-11-01 23:51] VITALS: BP 107/52; PULSE 55; TEMP 36.5; O2SAT 95
[2016-11-02] VITALS (7 sets, daily range): BP systolic 104–119; BP diastolic 55–73; PULSE 54–62; TEMP 36.3–36.8; O2SAT 94–96
[2016-11-02] MEDS ORDERED: LEVOTHYROXINE 25 MCG TAB PO SCH (06:00)
[2016-11-02 06:07] LABS: HEMATOCRIT 38.5 % (42-52); MEAN CORPUSCULAR HEMOGLOBIN 29.8 pg (25-34); MEAN CORPUSCULAR HGB CONC 32.7 g/dl (32-36); MEAN PLATELET VOLUME 10.2 fL (7.4-10.4); PLATELET COUNT 164 K/uL (130-400); RED BLOOD COUNT 4.23 M/uL (4.7-6.1); WHITE BLOOD COUNT 5.68 K/uL (4.8-10.8)
[2016-11-02 06:35] LABS: CALCIUM 8.9 mg/dl (8.5-10.1); CREATININE 1.2 mg/dl (0.60-1.40); POTASSIUM 4.1 mmol/L (3.5-5.1)
[2016-11-02] MEDS: INSULIN ASPART 100 UNITS/ML 3 ML PEN SC SCH (06:45)
[2016-11-02] MEDS: ROSUVASTATIN CALCIUM 20 MG TAB PO SCH (08:06)
[2016-11-02] MEDS: FLUTICASONE PROPIONATE NA SPR 16 GM BTL NAE SCH (08:06)
[2016-11-02] MEDS: ISOSORBIDE MONONITRATE 30 MG TABCR PO SCH (08:07)
[2016-11-02] MEDS: MEMANTINE 5 MG TAB PO SCH (08:08)
[2016-11-02] MEDS: OMEGA-3 (PURIFIED FISH OIL) 1 GM CAP PO SCH (08:09)
[2016-11-02] MEDS: PANTOprazole SOD 40 MG TAB PO SCH (08:09)
[2016-11-02] MEDS: CLOPIDOGREL BISULFATE 75 MG TAB PO SCH (08:09)
[2016-11-02] MEDS: LISINOPRIL 5 MG TAB PO SCH (08:11)
[2016-11-02] MEDS: AMLODIPINE BESYLATE 5 MG TAB PO SCH (08:11)
[2016-11-02] MEDS ORDERED: ASCORBIC ACID 500 MG TAB PO SCH (09:00)
[2016-11-02] MEDS ORDERED: CHOLECALCIFEROL 1000 INTER.UNIT TAB PO SCH (09:00)
[2016-11-02] MEDS ORDERED: ASPIRIN 81 MG ECTAB PO SCH (09:00)
[2016-11-02] MEDS ORDERED: ESCITALOPRAM OXALATE 20 MG TAB PO SCH (09:00)
--- NOTE | 2016-11-02 09:17 | CARDIOLOGY PROGRESS NOTE ---
DATE: 11/02/2016 DATE: 11/02/2016. FOLLOW-UP VISIT SUBJECTIVE: The patient is a 71-year-old who has advanced Alzheimer type dementia. He presented with atypical chest pain that was actually reproducible with palpation along the left costophrenic angle. The patient had apparently lifted a couple heavy cases of soda while at [facility] and suddenly had the discomfort. His EKG has shown no acute changes. He has a chronic right bundle branch block. The cardiac markers are borderline elevated and have not changed the recommended 20% from baseline that would indicate acute coronary syndrome. The first troponin I was a point of care value. I believe the patient's presentation most likely is due to chest wall or musculoskeletal discomfort. He has had no additional chest pain since admission and has no cardiac complaints this morning. OBJECTIVE: VITAL SIGNS: Blood pressure is 110/60, pulse is regular at 60, he is afebrile. HEAD, EYES, EARS, NOSE, AND THROAT: He is normocephalic. Pupils are equal and reactive to light. Extraocular muscles are intact bilaterally. NECK: The neck veins are flat. Carotids have good upstrokes bilaterally without bruits. Thyroid is nonpalpable. RESPIRATORY: Breath sounds equal bilaterally and clear to auscultation. CARDIOVASCULAR: Heart has a regular rhythm. Normal S1, S2. No S3, S4. No cardiac rubs or murmurs. GASTROINTESTINAL: Abdomen is soft, nontender without organomegaly. EXTREMITIES: Free of edema, digit clubbing, or cyanosis. NEUROLOGIC: Grossly intact. SKIN: Warm to touch. LYMPH NODES: Negative to palpation. IMPRESSION: 1. Atypical chest pain. 2. Advanced Alzheimer dementia. 3. Known coronary artery disease with previous coronary artery bypass in 1996. RECOMMENDATIONS: I do not believe that it would be unreasonable for the patient to be ambulated today and if he has no additional chest discomfort or problems to allow him to be discharged. Given his advanced dementia, I think a conservative approach is certainly warranted. After discharge will have close followup with ourselves and if he has additional chest discomfort we will do additional evaluation and provide further treatment. I would recommend that the patient be discharged with sublingual nitroglycerin to be used on a p.r.n. basis.
--- NOTE | 2016-11-02 10:55 | EMERGENCY ROOM VISIT NOTE ---
ED Visit Note First contact with patient: 08:27 Chief Complaint: Chest pain. History of Present Illness: Mr. Villareal is a 71 year-old white male is brought into the ED via ambulance accompanied by his and daughter. Historically patient has a history of coronary artery disease and is status post CABG, diabetes, chronic kidney disease, hypertension and dyslipidemia. His also reports he has a significant case of Alzheimer's dementia. Patient and reports they were out shopping last evening approximately 12 hours ago. She reports that as they were walking she looked over to see her and he appeared pair and look like he was having difficulty breathing. When she questioned him she reports he told her he was experiencing left-sided chest pain that was radiating into the back between the shoulder blades. She reports she took them to the front of the store and let him sit down while she checked out, but he did get up and walk to her and at that time she reports he appeared unstable on his feet. She took him from the store and supported him to the car. After arrival at home she reports she was still complaining of left sided chest pain but did not want to come to the hospital. She reports he' s had similar episodes. She reports giving him a Zantac and allowing him to lie down; this treatment in past has relieved his symptoms. She reports an hour later she woke him from sleep and he was still having chest discomfort but still did not want to come to the hospital. She helped him into bed and he slept all night. Approximately waking one hour ago he reports he was still having pain and at this time requested that she call 911 to come to the emergency department. continues to report that once the ambulance arrived she reports she looked better and told the ambulance he was not experiencing any pain or discomfort. During transport patient received 324 mg of aspirin and 1 sublingual nitroglycerin tablet. Transported to the hospital was unremarkable. Currently patient has no complaints and reports that he is pain and symptom- free. Because of his dementia. He does not remember if this discomfort last night was similar to previous episodes of chest pain or the worst episode of chest pain. He does remember feeling weak and unstable while ambulating. He does remember the pain being sharp in nature and radiating into the back between the shoulder blades. He does not remember if there was any worsening or alleviating factors related to his discomfort. He does remember that his was gave some medications but does not remember what those medications were for his discomfort. He does remember this morning waking up with discomfort and requesting to come to the hospital. Patient and deny any recent fevers, chills, sweats, skin eruptions, skin color changes, upper respiratory tract symptoms, wheezing, cough, shortness of breath, orthopnea, dependent edema, abdominal pain, decreased appetite, nausea, vomiting, diarrhea, constipation, rectal bleeding, black/tarry stools, urinary symptoms. Review of Systems: As noted above in history of present illness. All body systems were reviewed and found to be negative as noted above. Past Medical History: As previously noted, benign prostatic hypertrophy, diverticular disease, esophageal reflux, hypothyroidism, osteoarthritis, adhesive capsulitis, status post bilateral knee arthroplasty and hernia repair. Current Medications: Medications Dose Route/Sig Max Daily Dose Days Date Category Dose Instructions Glucotrol (Glipizide) 5 Mg Tab 5 Mg PO BID 11/01/16 Reported Ascorbic Acid 500 Mg Tab 500 Mg PO DAILY 11/01/16 Reported Norvasc (Amlodipine Besylate) 5 Mg Tab 5 Mg PO DAILY 11/01/16 Reported Fluticasone Propionate 50 Mcg/Act Spr 2 Sprays INH BID 11/01/16 Reported Vitamin A (Vitamin A-Beta Carotene) 1 Tab Tab 1,000 Mg PO DAILY 07/11/16 Reported Amoxil (Amoxicillin) 500 Mg Cap Mg PO UD PRN 07/11/16 Reported Isosorbide Mononitrate ER (Isosorbide Mononitrate) 30 Mg Tabcr 90 Mg PO QAM 30 05/22/16 Rx Crestor (Rosuvastatin Calcium) 40 Mg Tab 1 Tab PO DAILY 30 05/22/16 Rx Lisinopril 5 Mg Tab 5 Mg PO DAILY 30 05/22/16 Rx Vitamin D3 (Cholecalciferol) 1,000 Unit Tab 1,000 Mg PO DAILY 90 05/20/16 Reported Protonix (Pantoprazole Sodium) 40 Mg Tab 40 Mg PO DAILY 05/20/16 Reported Nitrostat (Nitroglycerin) 0.4 Mg Tab 0.4 Mg UT PRN PRN 05/20/[address] 1 PILL UNDER THE TONGUE EVERY 5 MIN FOR CHEST PAIN FOR A TOTAL OF 3 DOSES. Lexapro (Escitalopram Oxalate) 20 Mg Tab 20 Mg PO DAILY 05/20/16 Reported Januvia (Sitagliptin) 50 Mg Tab 50 Mg PO DAILY 7/29/16 Reported Toprol Xl (Metoprolol Succinate) 25 Mg Tabcr 25 Mg PO DAILY 02/02/16 Reported Plavix (Clopidogrel Bisulfate) 75 Mg Tab 75 Mg PO DAILY 02/02/16 Reported Namenda (Memantine) 5 Mg Tab 5 Mg PO BID 01/20/16 Reported Levothyroxine Sodium 25 Mcg Tab 1 Tab PO DAILY 01/20/16 Reported Tylenol (Acetaminophen) 500 Mg Tab 1,000 Mg PO DIRECTED PRN 09/27/15 Reported Aspirin 81 Mg Tab 81 Mg PO DAILY 02/26/13 Reported [place]-3 (Fish Oil) 1 Ea Cap 1 Capsule PO BID 07/16/10 Reported Allergies to Medications: Patient denied. Social History: Patient is currently retired and lives with his ; he feels safe in his home environment; he denies tobacco and alcohol use. Physical Examination: Vital Signs: Date Time Temp Pulse Resp B/P Pulse Ox O2 Delivery O2 Flow Rate FiO2 11/01/16 10:14 50 18 158/104 98 Room Air 11/01/16 08:13 52 11/01/16 08:03 36.7 51 20 157/87 97 Room Air GENERAL: 71-year-old male in mild distress due to pain symptoms, nontoxic- appearing, afebrile and hemodynamically stable. NEUROLOGICAL: Awake, alert and oriented to person, place and questionably time. Intermittently questions appropriately. Does follow all commands. Good hand eye coordination. Cranial nerves II through XII grossly intact. No focal or motor symptoms. SKIN: Warm, dry and pink. No soft tissue eruptions or trauma noted. HEENT: Atraumatic and normocephalic. PERRLA. Sclera white and conjunctiva pink. Oral cavity moist and pink. Pharynx is nonerythematous or edematous. Speech normal. No lymphadenopathy. Trachea midline. No jugular venous distention. BACK: No tenderness over the bony spine. No CVA tenderness. THORAX: Lungs sounds are clear to auscultation and equal bilaterally with symmetrical chest wall. No wheezing, rales or rhonchi. No crepitus, tenderness , subcutaneous air or deformities noted. HEART: Regular rate and rhythm. No gallops, rubs or murmurs are appreciated. No lifts, heaves or thrills. PMI is not displaced. ABDOMEN: Flat, soft and nontender. Positive bowel sounds in all quadrants. No guarding, rigidity or organomegaly. EXTREMITIES: Moves all extremities well on command and with purpose. All distal neurovascular statuses are intact and equal bilaterally. No dependent edema or calf tenderness/cords. ED Course: Patient is assessed as noted above. Laboratory Testing: Test 11/01/16 08:10 11/01/16 09:05 11/01/16 09:10 Range/Units White Blood Count 5.71 4.8-10.8 K/uL Red Blood Count 4.36 4.7-6.1 M/uL Hemoglobin 13.5 14.0-18.0 g/dL Hematocrit 39.6 42-52 % Mean Corpuscular Volume 90.8 80-100 fL Mean Corpuscular Hemoglobin 31.0 25-34 pg Mean Corpuscular Hemoglobin Concent 34.1 32-36 g/dl RDW Standard Deviation 42.7 36.4-46.3 fL RDW Coefficient of Variation 12.7 11.5-14.5 % Platelet Count 162 130-400 K/uL Mean Platelet Volume 10.4 7.4-10.4 fL Prothrombin Time 10.8 9.0-12.0 SECONDS Prothromb Time International Ratio 1.0 0.9-1.1 Activated Partial Thromboplast Time 26.3 21.0-31.0 SECONDS Partial Thromboplastin Ratio 1.0 Sodium Level 139 136-145 mmol/L Potassium Level 4.5 3.5-5.1 mmol/L Chloride Level 106 98-107 mmol/L Carbon Dioxide Level 26 21-32 mmol/L Anion Gap 7.0 3-11 mmol/L Blood Urea Nitrogen 12 7-18 mg/dl Creatinine 1.10 0.60-1.40 mg/dl Estimated GFR () 77.3 Estimated GFR (Non- 66.7 BUN/Creatinine Ratio 10.7 10-20 Random Glucose 143 70-99 mg/dl Calcium Level 9.3 8.5-10.1 mg/dl Total Bilirubin 0.8 0.2-1 mg/dl Aspartate Amino Transf (AST/SGOT) 49 15-37 U/L Alanine Aminotransferase (ALT/SGPT) 64 12-78 U/L Alkaline Phosphatase 38 45-117 U/L Total Creatine Kinase 130 39-308 U/L Creatine Kinase MB 1.5 0.5-3.6 ng/ml Creatine Kinase MB Ratio 1.2 0-3.0 Total Protein 6.7 6.4-8.2 gm/dl Albumin 3.7 3.4-5.0 gm/dl Globulin 3.0 2.5-4.0 gm/dl Albumin/Globulin Ratio 1.2 0.9-2 Bedside Troponin I 0.050 0-0.045 ng/ml Urine Color YELLOW Urine Appearance CLEAR CLEAR Urine pH 5.0 4.5-7.5 Urine Specific [place] 1.022 1.000-1.030 Urine Protein NEG NEG Urine Glucose (UA) NEG NEG Urine Ketones NEG NEG Urine Occult Blood NEG NEG Urine Nitrite NEG NEG Urine Bilirubin NEG NEG Urine Urobilinogen NEG NEG Urine Leukocyte Esterase NEG NEG Chest X-Ray: Was read by myself and the radiologist showing no acute infiltrates , effusions or pneumothorax. Slightly enlarged heart silhouette but stable. No signs of failure. Compared to previous and no acute changes were noted. EKG: Was read by myself and the radiologist and shows sinus bradycardia with a first-degree AV block. Ventricular rate of 93 bpm. Right bundle-branch block. Mild ST depression in the lateral leads that appears is new from previous; July 23. Patient was hydrated with normal saline. Patient was reassessed multiple times during his stay in the emergency department. Patient's case was reviewed with Dr. Barth; we agreed on diagnostic approach, treatment, disposition and plan. Patient's case was consulted with case management and Ms. Jodi PA-C, hospitalist, for medical observation/admission. Patient and was educated about tonight's findings. Clinical Impression: Acute chest pain. Elevated troponin. Decision-Making: Initially my differential diagnosis I considered acute coronary syndrome, thoracic aneurysm, pneumothorax, pneumonia, pulmonary embolism, musculoskeletal disorder, heart failure and other causes. Disposition and Plan: Patient be brought in the hospital by Ms. Bazzi; please see her notes and orders for final disposition and plan.
--- NOTE | 2016-11-02 11:11 | Progress Note ---
Subjective Date of Service: Nov 02, 2016. Subjective Pt evaluation today including: conversation w/ patient, conversation w/ family , physical exam, lab review, review of studies, review of inpatient medication list Saw/examined the patient in room 286 Ambulated this morning with no shortness of breath has left sided chest wall tenderness which is worse with palpation Problem List Medical Problems: (1) Abnormal EKG Status: Acute (2) Acute chest pain Status: Acute (3) Elevated troponin Status: Acute (4) Elevated troponin Status: Acute (5) Left sided chest pain Status: Acute (6) Left sided chest pain Status: Acute (7) Substernal chest pain Status: Acute Review of Systems Constitutional: No chills, No fever, No weakness Respiratory: No cough, No dyspnea at rest, No dyspnea on exertion, No shortness of breath (resolved), No sputum, No wheezing Cardiac: + chest pain (improving), No edema, No palpitations Abdomen: No diarrhea, No nausea, No pain, No vomiting Medications Current Inpatient Medications Medications (Trade) Dose Ordered Sig/Briseida Route Start Time Stop Time Status Last Admin Dose Admin Enoxaparin Sodium (Lovenox Inj) 40 mg Q24H SC 11/01/16 18:00 12/01/16 17:59 11/01/16 19:40 40 MG Acetaminophen (Tylenol Tab) 650 mg Q4H PRN PO 11/01/16 10:30 12/01/16 10:29 Ondansetron HCl (Zofran Inj) 4 mg Q6H PRN IV 11/01/16 10:30 12/01/16 10:29 Nitroglycerin (Nitrostat Tab) 0.4 mg UD PRN SL 11/01/16 10:30 12/01/16 10:29 Amlodipine Besylate (Norvasc Tab) 5 mg DAILY PO 11/01/16 11:00 12/01/16 10:59 11/02/16 08:11 5 MG Ascorbic Acid (Vitamin C Tab) 500 mg DAILY PO 11/02/16 09:00 12/02/16 08:59 11/02/16 08:10 500 MG Aspirin (Ecotrin Tab) 81 mg DAILY PO 11/02/16 09:00 12/02/16 08:59 11/02/16 08:07 81 MG Cholecalciferol (Vitamin D Tab) 1,000 inter.unit DAILY PO 11/02/16 09:00 12/02/16 08:59 11/02/16 08:10 1,000 INTER.UNIT Clopidogrel Bisulfate (plAVix TAB) 75 mg DAILY PO 11/01/16 11:00 12/01/16 10:59 11/02/16 08:09 75 MG Escitalopram Oxalate (Lexapro Tab) 20 mg DAILY PO 11/02/16 09:00 12/02/16 08:59 11/02/16 08:08 20 MG Fish Oil ([place]-3 (Purified Fish Oil) Cap) 1 gm BID PO 11/01/16 21:00 12/01/16 20:59 11/02/16 08:09 1 GM Fluticasone Propionate (Flonase Nasal [place]) 2 sprays BID FEROZ 11/01/16 21:00 12/01/16 20:59 11/02/16 08:06 2 SPRAYS Isosorbide Mononitrate (Imdur Ext Rel Tab) 90 mg QAM PO 11/01/16 11:00 12/01/16 10:59 11/02/16 08:07 90 MG Levothyroxine Sodium (Synthroid Tab) 25 mcg DAILYBB PO 11/02/16 06:00 12/02/16 05:59 11/02/16 05:59 25 MCG Lisinopril (Zestril Tab) 5 mg DAILY PO 11/01/16 11:00 12/01/16 10:59 11/02/16 08:11 5 MG Memantine (Namenda Tab) 5 mg BID PO 11/01/16 21:00 12/01/16 20:59 11/02/16 08:08 5 MG Pantoprazole Sodium (Protonix Tab) 40 mg DAILY PO 11/01/16 11:00 12/01/16 10:59 11/02/16 08:09 40 MG Rosuvastatin Calcium (Crestor Tab) 40 mg DAILY PO 11/01/16 11:00 12/01/16 10:59 11/02/16 08:06 40 MG Miscellaneous Information (Order Awaiting Action) 1 ea QS N/A 11/01/16 16:00 12/01/16 15:59 Insulin Aspart (novoLOG ASPART) SLIDING SCALE If C... ACHS SC 11/01/16 16:00 5/28/17 15:59 11/01/16 17:12 6 UNITS Glucose (Glucose 40% Gel) 15-30 GRAMS 15 GRAMS... UD PRN PO 11/01/16 11:15 12/01/16 11:14 Glucose (Glucose Chew Tab) 4-8 Tablets 4 Tabl... UD PRN PO 11/01/16 11:15 12/01/16 11:14 Dextrose (Dextrose 50% 50ML Syringe) 25-50ML OF 50% DW IV FOR... UD PRN IV 11/01/16 11:15 12/01/16 11:14 Glucagon (Glucagon Inj) 1 mg UD PRN SQ 11/01/16 11:15 12/01/16 11:14 Miscellaneous (Iv Fluids Completed) 1 ea PRN PRN N/A 11/01/16 12:15 11/01/17 12:14 Objective Vital Signs Date Time Temp Pulse Resp B/P Pulse Ox O2 Delivery O2 Flow Rate FiO2 11/02/16 10:29 36.3 62 18 113/73 96 Room Air 11/02/16 10:10 36.8 58 20 95 11/02/16 08:00 95 Room Air 11/02/16 07:50 95 Room Air 11/02/16 07:50 36.8 58 18 104/55 95 Room Air 11/02/16 07:46 36.6 54 18 104/55 96 11/02/16 04:00 Room Air 11/02/16 03:45 36.8 60 18 119/62 94 Room Air 11/01/16 23:59 Room Air 11/01/16 23:51 36.5 55 16 107/52 95 11/01/16 20:00 Room Air 11/01/16 20:00 36.7 59 19 130/60 96 Room Air 11/01/16 15:00 36.5 53 16 153/83 99 Room Air 11/01/16 14:13 49 18 115/56 95 Room Air 11/01/16 13:19 50 11/01/16 12:07 49 20 95 Room Air 11/01/16 11:35 Room Air Physical Exam General Appearance: no apparent distress Respiratory/Chest: lungs clear, normal breath sounds, no respiratory distress, no accessory muscle use Cardiovascular: regular rate, rhythm, no edema, no murmur Abdomen: normal bowel sounds, non tender, soft Extremities: normal inspection, no pedal edema Laboratory Results Last 24 Hours Test 11/01/16 15:00 11/01/16 15:23 11/01/16 20:55 11/01/16 21:11 Creatine Kinase MB Ratio 1.1 Bedside Glucose 117 mg/dl 125 mg/dl Creatine Kinase MB 1.4 ng/ml 1.2 ng/ml Troponin I 0.119 ng/ml 0.114 ng/ml Test 11/02/16 05:45 11/02/16 06:18 White Blood Count 5.68 K/uL Red Blood Count 4.23 M/uL Hemoglobin 12.6 g/dL Hematocrit 38.5 % Mean Corpuscular Volume 91.0 fL Mean Corpuscular Hemoglobin 29.8 pg Mean Corpuscular Hemoglobin Concent 32.7 g/dl RDW Standard Deviation 41.7 fL RDW Coefficient of Variation 12.6 % Platelet Count 164 K/uL Mean Platelet Volume 10.2 fL Sodium Level 141 mmol/L Potassium Level 4.1 mmol/L Chloride Level 105 mmol/L Carbon Dioxide Level 27 mmol/L Anion Gap 9.0 mmol/L Blood Urea Nitrogen 17 mg/dl Creatinine 1.20 mg/dl Est Creatinine Clear Calc Drug Dose 63.1 ml/min Estimated GFR () 69.6 Estimated GFR (Non- 60.1 BUN/Creatinine Ratio 14.0 Random Glucose 137 mg/dl Calcium Level 8.9 mg/dl Bedside Glucose 125 mg/dl Assessment and Plan This is a 71 year old male with PMH of CAD s/p CABG, HTN, HLD, DM2, CKD stage 3 and underlying dementia presents with a one day history of chest pain, shortness of breath, diaphoresis. Atypical Chest Pain CAD s/p CABG Chronic Troponin Elevation 11/02 ambulated without chest pain/shortness of breath will continue aspirin, Plavix, statin hold b-jos on discharge plan is to d/c home today 11/01 patient presented with shortness of breath, chest pain mild elevation of troponin, it is a chronic issue EKG with no acute changes holding b-jos due to bradycardia continue aspirin, Plavix, statin appreciate cardiology input will observe overnight Sinus Bradycardia asymptomatic will have outpatient PCP and cardiology f/u low dose b-jos can be restarted once HRs improve CKD stage 3 at baseline DM 2 Not well controlled as outpatient Ha1c = 8.6% will continue home meds on discharge and have PCP adjust accordingly sliding scale while in patient Alzheimers continue Namenda GERD PPI HTN BP now controlled HLD cont. statin DVT ppx Lovenox FULL CODE d/c home (11/02)
--- NOTE | 2016-11-02 11:22 | Discharge Instructions ---
Discharge Instructions Date of Service Nov 02, 2016. Admission Reason for Admission: Chest Pain, Elevated Troponin Discharge Discharge Diagnosis / Problem: Atypical Chest Pain, likely musculoskeletal Discharge Goals Goal(s): Decrease discomfort, Improve function, Diagnostic testing, Therapeutic intervention Activity Recommendations Activity Limitations: resume your previous activity . Instructions / Follow-Up Instructions / Follow-Up Please follow-up with Dr. Jacobs on November 06 @ 10:45AM * Please hold your metoprolol until PCP and cardiology follow-up; when HRs improve, can restart Toprol XL at low dose Current Hospital Diet Patient's current hospital diet: Diabetes Type 2 Diet, AHA Diet (Heart Healthy) Discharge Diet Recommended Diet: AHA Diet (Heart Healthy), Diabetes Type 2 Diet Pending Studies Studies pending at discharge: no Medical Emergencies . Who to Call and When: Medical Emergencies: If at any time you feel your situation is an emergency, please call 911 immediately. . Non-Emergent Contact Non-Emergency issues call your: Primary Care Provider . . "Provider Documentation" section prepared by Chris Delaney. . VTE Core Measure Inpt VTE Proph given/why not?: Enoxaparin (Lovenox)SQ
--- NOTE | 2016-11-02 11:24 | Discharge Summary ---
Discharge Summary Date of Service Nov 02, 2016. Discharge Summary Admission Date: Nov 01, 2016 at 10:31 Discharge Date: Nov 02, 2016 Discharge Disposition: Home Principal Diagnosis: Atypical Chest Pain, likely musculoskeletal Medication Reconciliation Continued Medications: Acetaminophen (Tylenol) 500 Mg Tab 1000 MG PO DIRECTED PRN for Pain Amlodipine (Norvasc) 5 Mg Tab 5 MG PO DAILY, TAB Amoxicillin (Amoxil) 500 Mg Cap MG PO UD PRN for prior to dental work Ascorbic Acid (Ascorbic Acid) 500 Mg Tab 500 MG PO DAILY, TAB Aspirin (Aspirin) 81 Mg Tab 81 MG PO DAILY Cholecalciferol (Vitamin D3) 1,000 Unit Tab 1000 MG PO DAILY for 90 Days, TAB 3 Refills Clopidogrel (Plavix) 75 Mg Tab 75 MG PO DAILY, TAB Escitalopram Oxalate (Lexapro) 20 Mg Tab 20 MG PO DAILY, TAB Fish Oil ([place]-3) 1 Ea Cap 1 CAPSULE PO BID, 0 Refills Fluticasone Propionate (Fluticasone Propionate) 50 Mcg/Act Spr 2 SPRAYS INH BID Glipizide (Glucotrol) 5 Mg Tab 5 MG PO BID, TAB Isosorbide Mononitrate (Isosorbide Mononitrate ER) 30 Mg Tabcr 90 MG PO QAM for 30 Days, #90 TABS 6 Refills Levothyroxine Sodium (Levothyroxine Sodium) 25 Mcg Tab 1 TAB PO DAILY Lisinopril (Lisinopril) 5 Mg Tab 5 MG PO DAILY for 30 Days, #30 TAB 5 Refills Memantine (Namenda) 5 Mg Tab 5 MG PO BID, TAB Nitroglycerin (Nitrostat) 0.4 Mg Tab 0.4 MG UT PRN PRN for CHEST PAIN, BTL PLACE 1 PILL UNDER THE TONGUE EVERY 5 MIN FOR CHEST PAIN FOR A TOTAL OF 3 DOSES. Pantoprazole (Protonix) 40 Mg Tab 40 MG PO DAILY, #30 TAB Rosuvastatin Calcium (Crestor) 40 Mg Tab 1 TAB PO DAILY for 30 Days, #30 TAB 5 Refills Sitagliptin (Januvia) 50 Mg Tab 50 MG PO DAILY, TAB Vitamin A-Beta Carotene (Vitamin A) 1 Tab Tab 1000 MG PO DAILY Discontinued Medications: Metoprolol Succinate (Toprol Xl) 25 Mg Tabcr 25 MG PO DAILY Admission Information HPI (per Admitting provider): This is a 71 y/o male with PMHx of CAD s/p CABG, DM 2, CKD stage 3, HTN, Dyslipidemia and other problems as outlined below presents to the ED c/o chest pain that began yesterday evening. History is obtained from both patient and at bedside as patient has Alzheimers Dz. Yesterday evening around 1800 patient was in [employer] with his when she noticed that he was pale, weak and SOB. Patient was also complaining of stomach upset and chest pain. He describes the chest pain as 5/10 "sharp" chest pain that radiates between his shoulder blades. Chest pain is aggravated with exertion. Pt refused to go to the ED last night and gave him some Pepcid before he went to bed. This morning, patient was still experiencing chest pain and EMS was called. Pt has a history of CAD s/p CABG in 1996. He follows with cardiology, Dr. Jay. Pt denies fever/chills, palpitations, abd pain, N/V, bowel or bladder issues, LE edema ,calf pain, lightheadedness/dizziness. In the ED, HR is bradycardic in low 50s. He is afebrile with no leukocytosis. Trop is 0.05 and EKG is unchanged from previous studies. Pt is stable and will be admitted for further evaluation and treatment. Physical Exam (per Admitting): General Appearance: WD/WN, no apparent distress, + pertinent finding (Pt is laying in bed with at bedside) Head: normocephalic, atraumatic Eyes: normal inspection ENT: hearing grossly normal Neck: supple Respiratory/Chest: chest non-tender, lungs clear, normal breath sounds, no respiratory distress Cardiovascular: no edema, no murmur, + bradycardia Abdomen/GI: normal bowel sounds, non tender, soft Back: normal inspection Extremities/Musculoskelatal: normal inspection, no calf tenderness, no pedal edema Neurologic/Psych: alert, normal mood/affect, oriented x 3 Skin: normal color, warm/dry Hospital Course This is a 71 year old male with PMH of CAD s/p CABG, HTN, HLD, DM2, CKD stage 3 and underlying dementia presents with a one day history of chest pain, shortness of breath, diaphoresis. Atypical Chest Pain CAD s/p CABG Chronic Troponin Elevation 11/02 ambulated without chest pain/shortness of breath will continue aspirin, Plavix, statin hold b-jos on discharge plan is to d/c home today 11/01 patient presented with shortness of breath, chest pain mild elevation of troponin, it is a chronic issue EKG with no acute changes holding b-jos due to bradycardia continue aspirin, Plavix, statin appreciate cardiology input will observe overnight Sinus Bradycardia asymptomatic will have outpatient PCP and cardiology f/u low dose b-jos can be restarted once HRs improve CKD stage 3 at baseline DM 2 Not well controlled as outpatient Ha1c = 8.6% will continue home meds on discharge and have PCP adjust accordingly sliding scale while in patient Alzheimers continue Namenda GERD PPI HTN BP now controlled HLD cont. statin DVT ppx Lovenox FULL CODE d/c home (11/02) Total time spent on discharge = 25 minutes This includes examination of the patient, discharge planning, medication reconciliation, and communication with other providers. Discharge Instructions Please follow-up with Dr. Jacobs on November 06 @ 10:45AM * Please hold your metoprolol until PCP and cardiology follow-up; when HRs improve, can restart Toprol XL at low dose
--- NOTE | 2016-11-02 13:42 | ECHOCARDIOGRAM REPORT ---
*NOTICE TO RECEIVING DEMOCRAT AGENCY This information is strictly Confidential and protected under [place] law. [place] law prohibits you from making any further disclosure of this information unless further disclosure is expressly permitted by the written consent of the person to whom it pertains or is authorized by law. A general authorization for the release of medical or other information is not sufficient for this purpose. Hospital accepts no responsibility if the information is made available to any other person, INCLUDING THE PATIENT. Interpretation Summary * Name: GERALDO PEREZ Study Date: 11/01/2016 04:06 PM BP: 115/56 mmHg * Patient [facility]: [facility] HR: 51 * : 1945 (M/d/yyyy) Gender: Male Height: 68 in * Age: 71 yrs Ethnicity: CA Weight: 210 lb * Ordering Physician: Gina Bean * Referring Physician: Self, Referred * Performed By: Diane Lanza RCS * * Reason For Study: Chest Pain * BSA: 2.1 m2 * -- Conclusions -- * Aortic valve sclerosis mild, without significant aortic valvular stenosis. * The left ventricle is normal in size. * Left ventricular systolic function is normal. * Ejection Fraction = 55-60%. * The left ventricular wall motion is normal. * The right ventricular systolic function is normal. * The left atrial size is normal. * Right atrial size is normal. * No significant valvular pathology. Procedure Details * A complete two-dimensional transthoracic echocardiogram was performed (2D, M-mode, Doppler and color flow Doppler). * A contrast injection of Definity was performed to improve assessment of LV function. * Contrast was injected into an intravenous site in the left arm. * One vial of Definity ultrasound contrast was diluted in normal saline to a total volume of 10 ml. A total of '2' ml of solution was administered during imaging. * Lot # [id number] of Definity utilized for procedure. * Expiration date 1APR18. * The attending nurse who injected the contrast agent was Efraín Maldonado RN. Left Ventricle * The left ventricle is normal in size. * There is normal left ventricular wall thickness. * Ejection Fraction = 55-60%. * Left ventricular systolic function is normal. * The left ventricular wall motion is normal. Right Ventricle * The right ventricle is normal size. * The right ventricular systolic function is normal. Atria * The left atrial size is normal. * Right atrial size is normal. * The interatrial septum is intact with no evidence for an atrial septal defect. Mitral Valve * The mitral valve anatomy is normal. * Significant mitral regurgitation is absent. Aortic Valve * Aortic valve sclerosis mild, without significant aortic valvular stenosis. Pulmonic Valve * The pulmonic valve is not well visualized. * There is no significant pulmonary regurgitation. Great Vessels * The aortic root and proximal ascending aorta are normal sized. Pericardium/Pleural * There is no pericardial effusion. MMode 2D Measurements and Calculations IVSd 0.98 cm IVSs 1.4 cm LVIDd 5.3 cm LVIDs 3.6 cm LVPWd 0.96 cm LVPWs 1.3 cm IVS/LVPW 1.0 FS 32.0 % EDV(Teich) 134.8 ml ESV(Teich) 54.4 ml EF(Teich) 59.6 % EDV(cubed) 148.1 ml ESV(cubed) 46.7 ml EF(cubed) 68.5 % % IVS thick 41.4 % % LVPW thick 34.5 % LV mass(C)d 192.5 grams LV mass(C)dI 92.3 grams/m\S\2 LV mass(C)s 168.2 grams LV mass(C)sI 80.6 grams/m\S\2 CO(Teich) 4.1 l/min CI(Teich) 2.0 l/min/m\S\2 SV(Teich) 80.4 ml SI(Teich) 38.5 ml/m\S\2 CO(cubed) 5.2 l/min CI(cubed) 2.5 l/min/m\S\2 SV(cubed) 101.5 ml SI(cubed) 48.6 ml/m\S\2 Ao root diam 3.5 cm Ao root area 9.5 cm\S\2 ACS 1.6 cm LA dimension 3.9 cm LA/Ao 1.1 LVAd ap4 32.1 cm\S\2 LVLd ap4 8.5 cm EDV(MOD-sp4) 101.0 ml LVAs ap4 19.1 cm\S\2 LVLs ap4 7.3 cm ESV(MOD-sp4) 41.0 ml EF(MOD-sp4) 59.4 % LVAd ap2 20.7 cm\S\2 LVLd ap2 7.2 cm EDV(MOD-sp2) 50.0 ml LVAs ap2 12.3 cm\S\2 LVLs ap2 6.4 cm ESV(MOD-sp2) 20.0 ml EF(MOD-sp2) 60.0 % CO(MOD-sp4) 3.1 l/min CI(MOD-sp4) 1.5 l/min/m\S\2 SV(MOD-sp4) 60.0 ml SI(MOD-sp4) 28.8 ml/m\S\2 CO(MOD-sp2) 1.5 l/min CI(MOD-sp2) 0.73 l/min/m\S\2 SV(MOD-sp2) 30.0 ml SI(MOD-sp2) 14.4 ml/m\S\2 Doppler Measurements and Calculations MV E max huey 85.9 cm/sec MV A max huey 58.7 cm/sec MV E/A 1.5 MV P1/2t max huey 83.8 cm/sec MV P1/2t 74.1 msec MVA(P1/2t) 3.0 cm\S\2 MV dec slope 331.3 cm/sec\S\2 MV dec time 0.18 sec Ao V2 max 146.8 cm/sec Ao max PG 8.6 mmHg Ao max PG (full) 6.3 mmHg LV V1 max PG 2.3 mmHg LV V1 max 76.5 cm/sec PA V2 max 148.6 cm/sec PA max PG 8.8 mmHg PI max huey 192.7 cm/sec PI max PG 14.9 mmHg PI dec slope 98.7 cm/sec\S\2 PI P1/2t 572.2 msec TR max huey 217.3 cm/sec
[2017-01-09] MEDS ORDERED: PANT40TA PO (11:23)
[2017-01-09] MEDS ORDERED: ISOS30TA35 PO (11:23)
[2017-01-09] MEDS ORDERED: LEVO50TA6 PO (11:23)
[2017-01-09] MEDS ORDERED: LISI-461 PO (11:23)
[2017-01-09] MEDS ORDERED: CHOL20007 PO (11:23)
[2017-01-09] MEDS ORDERED: ROSU40TA PO (11:23)
[2017-01-09] MEDS ORDERED: GLIP-199 PO (11:23)
[2017-03-04] MEDS ORDERED: BROM0.07 OPL (12:15)
[2017-03-04] MEDS ORDERED: PRED1SUS OPL (12:15)
[2017-03-04] MEDS ORDERED: FAMO20TA11 PO (12:23)
[2017-04-01] MEDS ORDERED: AMLO2.5T PO (10:04)
== END 2016-11-02 14:00 | disposition home or self-care (01) ==
LOC: ENRESERVTM → ENRESERVDT → EDBD 08:00 → C.EDB 08:01 → C.MSICU 10:31 → EDBEDREQ 11-02 09:22 → C.MED 11-02 10:28
PROVIDERS: ADMIT Family Medicine; ATTEND Family Medicine
DX: R07.89 Other chest pain (principal); R79.89 Other specified abnormal findings of blood chemistry; I25.10 Atherosclerotic heart disease of native coronary artery without angina pectoris; E11.9 Type 2 diabetes mellitus without complications; I12.9 Hypertensive chronic kidney disease with stage 1 through stage 4 chronic kidney disease, or unspecified chronic kidney disease; N18.3 Chronic kidney disease, stage 3 (moderate); G30.9 Alzheimer's disease, unspecified; F02.80 Dementia in other diseases classified elsewhere, unspecified severity, without behavioral disturbance, psychotic disturbance, mood disturbance, and anxiety; R00.1 Bradycardia, unspecified; E78.5 Hyperlipidemia, unspecified; K21.9 Gastro-esophageal reflux disease without esophagitis; E03.9 Hypothyroidism, unspecified; Z95.1 Presence of aortocoronary bypass graft; Z79.82 Long term (current) use of aspirin; Z96.653 Presence of artificial knee joint, bilateral; Z87.891 Personal history of nicotine dependence; Z82.49 Family history of ischemic heart disease and other diseases of the circulatory system

== ENCOUNTER → 2017-02-11 | Day surgery (SDC) | payer OTHER ==
[2017-01-09 11:11] VITALS: Ht 172.7 cm; Wt 100.0 kg
[~2017-02-11] VITALS: Ht 172.7 cm; Wt 100.0 kg
[~2017-02-11] MED LIST changes: +500ML BSS 0.3ML EPI 1:1000PF IRRIG ONE; -ACET-1256 PO; +ACETAMINOPHEN 325 MG TAB PO PRN; +AMLO2.5T PO; +AMVISC PLUS 0.8ML SYRINGE INT OCU ONE; +ASCO500T16 PO; +ATROPINE SULFATE 0.1 MG/ML 5ML SYR IV PRN; +BROM0.07 OPL; +BSS FLUSH ONE; -CHOL1000 PO; +CHOL20007 PO; +CYCLOPENTOLATE HCL 1% OP SOLN PER DROP CHARGE OPL SCH; +EpHEDrine SULFATE INJ 50 MG/ML AMP IV PRN; +EpINEphrine INJ 1MG/ML AMP 1 MG/ML AMP ONE; +FAMO20TA11 PO; +FLNIN INH; -FLNIN NAE; +GATIFLOXACIN OP SOLN PER DROP CHARGE OPL SCH; +GLIP-199 PO; -IMDSR30 PO; +ISOS30TA35 PO; +KETOROLAC 0.5% OP SOLN PER DROP CHARGE OPL SCH; +LACTATED RINGER'S 1000ML 500 ML IV SCH; -LEVO25TA5 PO; +LEVO50TA6 PO; +LIDOCAINE 3.5% OPH GEL PER APPLICATION CHARGE ONE; +LIDOCAINE HCL 1% MPF 2 ML VIAL ONE; +LISI-461 PO; -LSN5 PO; -METO25TA3 PO; +MIDAZOLAM HCL 1 MG/ML 2ML VIAL ONE; -NRV5 PO; +OCUCOAT 1 ML SOLN IO ONE; +PHENYLEPHRINE HCL 2.5% OP SOLN PER DROP CHARGE OPL SCH; +POVIDONE-IODINE OP SOLN 30 ML BTL ONE; +PRED1SUS OPL; +PROPARACAINE 0.5% OP SOLN PER DROP CHARGE OPL SCH; +TOBRAMYCIN/DEXAMETHASONE OPH OINT PER APPLN CHARGE ONE; +TROPICAMIDE 1% OP SOLN PER DROP CHARGE OPL SCH; -VITATAB19 PO
[2017-02-11] MEDS: PHENYLEPHRINE HCL 2.5% OP SOLN PER DROP CHARGE OPL SCH ×2 (07:26→07:33)
[2017-02-11] MEDS: TROPICAMIDE 1% OP SOLN PER DROP CHARGE OPL SCH ×2 (07:28→07:35)
[2017-02-11] MEDS: CYCLOPENTOLATE HCL 1% OP SOLN PER DROP CHARGE OPL SCH ×2 (07:30→07:36)
[2017-02-11] MEDS: KETOROLAC 0.5% OP SOLN PER DROP CHARGE OPL SCH ×2 (07:31→07:37)
[2017-02-11] MEDS: GATIFLOXACIN OP SOLN PER DROP CHARGE OPL SCH ×2 (07:32→07:41)
--- NOTE | 2017-02-11 07:32 | History & Physical Bridge - SC ---
H&P Re-Evaluation Bridge Note: I have examined the patient, reviewed the History & Physical and in the interval since the performance of the History & Physical I have noted the following changes of clinical significance: Diagnosis: Left Cataract Procedure: Left Cataract Removal with Lens Implant No changes noted
--- NOTE | 2017-02-11 08:12 | Discharge Instructions-SurgCtr ---
Discharge Instructions Date of Service Feb 11, 2017. Visit Reason for Visit: Cataract Left Eye Discharge Discharge Diagnosis / Problem: cataract Discharge Goals Goal(s): Improve function Activity Recommendations Activity Limitations: per Instructions/Follow-up section Anesthesia . Post Anesthesia Instructions: If you have had General Anesthesia or IV Sedation: * Do not drive today. * Resume driving when surgeon permits. * Do not make important decisions or sign legal documents today. * Call surgeon for: 1. Temperature elevations greater than 101 degrees F. 2. Uncontrollable pain. 3. Excessive bleeding. 4. Persistent nausea and vomiting. 5. Medication intolerance (nausea, vomiting or rash). * For nausea and vomiting use only clear liquids such as: tea, soda, bouillon until nausea subsides, then gradually increase diet as tolerated. * If you have any concerns or questions, call your surgeon's office. If physician is unavailable and it is an emergency, call 911 or go to the nearest emergency room. . Instructions / Follow-Up Instructions / Follow-Up ACTIVITY RECOMMENDATIONS: * No strenuous lifting, jogging or running for 4 days * No swimming or yard work for 1 week. * Limited bending is permitted, such as putting on shoes. RETURN TO SCHOOL/WORK: No work until seen by physician in office. MEDICATIONS: Resume previous medications unless instructed otherwise by your surgeon. This includes eye drops for glaucoma. Zymaxid/Gatifloxacin (ricardo cap) - one drop every 2 hours until bedtime Nevanac/Ilevro/Prolensa/Ketorolac (child cap) - one drop every 4 hours until bedtime Prednisolone/Durezol (white/pink cap, SHAKE WELL) - one drop every 2 hours until bedtime Starting tomorrow - all 3 drops every 4 hours until seen in the office Optive drops - as needed for discomfort SPECIAL CARE INSTRUCTIONS: * Wear eyeshield when sleeping, for four nights. * You may wear your own glasses or sunglasses while awake. * You may read or watch TV * You may shower and wash your face, but be gentle around the eye and pat dry. * Blurry vision and mild irritation are normal. * Call office if pain is more severe or vision becomes dark at . FOLLOW UP VISIT: Follow-up with Dr Bar tomorrow. Diet Recommendations Home Diet: resume previous diet Procedures Procedures Performed: Left Cataract Phacoemulsification With Intraocular Lens Implant Pending Studies Studies pending at discharge: no Medical Emergencies . Who to Call and When: Medical Emergencies: If at any time you feel your situation is an emergency, please call 911 immediately. . Non-Emergent Contact Non-Emergency issues call your: [employer] Repairer . . "Provider Documentation" section prepared by Wil Bar. .
--- NOTE | 2017-02-11 08:13 | [facility] Operative Report ---
Operative Report Date of Service Feb 11, 2017. Operative Report 1. PREOPERATIVE DIAGNOSIS: Cataract of the left eye. 2. POSTOPERATIVE DIAGNOSIS: Same. 3. PROCEDURE: Phacoemulsification with intraocular lens implantation of the left eye. SURGEON: Dr. Wil Bar. ANESTHESIA: Topical Lidocaine gel, 1% Non- Preserved intracameral Lidocaine, and monitored intravenous sedation. INDICATIONS FOR THE PROCEDURE: The patient is a 71 - year-old male with a history of cataract of the left eye causing significant visual impairment. The details of the proposed procedure were explained to the patient who asked appropriate questions and following discussion of all risks, benefits and alternatives agreed to have the procedure done. 4. OPERATION AND FINDINGS: DESCRIPTION OF PROCEDURE: After informed consent was obtained, the patient was brought to the Operating Room at the [facility]. The patient was placed in a supine position and then the left eye was prepped and draped in the usual sterile fashion for intraocular surgery. A drop of topical Lidocaine gel was placed in the operative eye. A wire lid speculum was then placed in the fornices. A corneal paracentesis was then created temporally. The Non-Preserved Lidocaine was then instilled into the anterior chamber. The anterior chamber was then pressurized with viscoelastic. A 2.0 mm clear corneal incision was then created temporally. A cystotome was inserted into the anterior chamber and used to create a tear in the anterior lens capsule. This capsular tear was then used to create a small flap and the flap was dragged in a counterclockwise direction in order to create a continuous curvilinear capsulorrhexis. Hydrodissection was accomplished with balanced salt solution. Phacoemulsification of the lens nucleus was then performed in a standard [id number] technique. The phaco time was 34 seconds with an average power of 15 %. The remaining cortical material was removed using irrigation aspiration. The capsular bag was then filled with viscoelastic. A B[employer]ch [employer] Lomb MI60L +20.0 diopters lens was then loaded into the injector and injected into the capsular bag. The remaining viscoelastic was removed with the irrigation aspiration handpiece. The wound was hydrated and then checked and found to be watertight. The intraocular pressure was checked and found to be adequate. The wire lid speculum was removed and the patient's face was cleaned and dried. TobraDex ointment was placed in the inferior fornix. The patient was discharged to the Recovery Room having tolerated the procedure well. There were no complications. The patient will be seen tomorrow in the office for follow-up. I attest to the content of the Intraoperative Record and any orders documented therein. Any exceptions are noted below.
[2017-02-11 08:15] VITALS: TEMP 36.4
--- NOTE | 2017-02-11 08:30 | Anesthesiology Progress Note ---
Anesthesia Post Op Note Date & Time Feb 11, 2017 at 08:29 Vital Signs Pain Intensity: 3 Vital Signs Past 12 Hours Date Time Temp Pulse Resp B/P (MAP) Pulse Ox O2 Delivery O2 Flow Rate FiO2 02/11/17 08:15 36.4 66 16 145/88 (107) 95 Room Air 02/11/17 07:16 36.7 70 16 138/87 (104) 94 Room Air Notes Mental Status: alert / awake / arousable, participated in evaluation Pt Amnestic to Procedure: No Nausea / Vomiting: adequately controlled Pain: adequately controlled Airway Patency, RR, SpO2: stable & adequate BP & HR: stable & adequate Hydration State: stable & adequate Anesthetic Complications: no major complications apparent level of amnesia expected for MAC
[2017-02-11 08:42] VITALS: BP 124/75; PULSE 68; O2SAT 95
== END | disposition home or self-care (01) ==
LOC: X.SURG 06:49
PROVIDERS: ATTEND Ophthalmology
DX: H25.13 Age-related nuclear cataract, bilateral (principal); I25.10 Atherosclerotic heart disease of native coronary artery without angina pectoris; E11.9 Type 2 diabetes mellitus without complications; I12.9 Hypertensive chronic kidney disease with stage 1 through stage 4 chronic kidney disease, or unspecified chronic kidney disease; N18.3 Chronic kidney disease, stage 3 (moderate); G30.9 Alzheimer's disease, unspecified; F02.80 Dementia in other diseases classified elsewhere, unspecified severity, without behavioral disturbance, psychotic disturbance, mood disturbance, and anxiety; K21.9 Gastro-esophageal reflux disease without esophagitis; Z95.1 Presence of aortocoronary bypass graft; M19.90 Unspecified osteoarthritis, unspecified site; Z79.82 Long term (current) use of aspirin; Z79.899 Other long term (current) drug therapy

== ENCOUNTER → 2017-04-01 | Day surgery (SDC) | payer OTHER ==
[2017-03-04 12:19] VITALS: Ht 172.7 cm; Wt 100.0 kg
[~2017-04-01] VITALS: Ht 172.7 cm; Wt 100.0 kg
[~2017-04-01] MED LIST changes: -CLOP1TAB15 PO; -CYCLOPENTOLATE HCL 1% OP SOLN PER DROP CHARGE OPL SCH; -GATIFLOXACIN OP SOLN PER DROP CHARGE OPL SCH; -KETOROLAC 0.5% OP SOLN PER DROP CHARGE OPL SCH; -PHENYLEPHRINE HCL 2.5% OP SOLN PER DROP CHARGE OPL SCH; -PROPARACAINE 0.5% OP SOLN PER DROP CHARGE OPL SCH; +PROPARACAINE 0.5% OP SOLN PER DROP CHARGE OPR SCH; -TROPICAMIDE 1% OP SOLN PER DROP CHARGE OPL SCH
[2017-04-01] MEDS: PHENYLEPHRINE HCL 2.5% OP SOLN PER DROP CHARGE OPR SCH ×2 (10:11→10:16)
[2017-04-01] MEDS: TROPICAMIDE 1% OP SOLN PER DROP CHARGE OPR SCH ×2 (10:12→10:17)
[2017-04-01] MEDS: CYCLOPENTOLATE HCL 1% OP SOLN PER DROP CHARGE OPR SCH ×2 (10:13→10:18)
[2017-04-01] MEDS: KETOROLAC 0.5% OP SOLN PER DROP CHARGE OPR SCH ×2 (10:14→10:19)
[2017-04-01] MEDS: GATIFLOXACIN OP SOLN PER DROP CHARGE OPR SCH ×2 (10:15→10:25)
--- NOTE | 2017-04-01 10:42 | History & Physical Bridge - SC ---
H&P Re-Evaluation Bridge Note: I have examined the patient, reviewed the History & Physical and in the interval since the performance of the History & Physical I have noted the following changes of clinical significance: Diagnosis: Right Cataract Procedure: Right Cataract Removal with Lens Implant No changes noted
--- NOTE | 2017-04-01 11:17 | [facility] Operative Report ---
Operative Report Date of Service Apr 01, 2017. Operative Report 1. PREOPERATIVE DIAGNOSIS: Cataract of the right eye. 2. POSTOPERATIVE DIAGNOSIS: Same. 3. PROCEDURE: Phacoemulsification with intraocular lens implantation of the right eye. SURGEON: Dr. Wil Bar. ANESTHESIA: Topical Lidocaine gel, 1% Non- Preserved intracameral Lidocaine, and monitored intravenous sedation. INDICATIONS FOR THE PROCEDURE: The patient is a 72 - year-old male with a history of cataract of the right eye causing significant visual impairment. The details of the proposed procedure were explained to the patient who asked appropriate questions and following discussion of all risks, benefits and alternatives agreed to have the procedure done. 4. OPERATION AND FINDINGS: DESCRIPTION OF PROCEDURE: After informed consent was obtained, the patient was brought to the Operating Room at the [facility]. The patient was placed in a supine position and then the right eye was prepped and draped in the usual sterile fashion for intraocular surgery. A drop of topical Lidocaine gel was placed in the operative eye. A wire lid speculum was then placed in the fornices. A corneal paracentesis was then created temporally. The Non-Preserved Lidocaine was then instilled into the anterior chamber. The anterior chamber was then pressurized with viscoelastic. A 2.0 mm clear corneal incision was then created temporally. A cystotome was inserted into the anterior chamber and used to create a tear in the anterior lens capsule. This capsular tear was then used to create a small flap and the flap was dragged in a counterclockwise direction in order to create a continuous curvilinear capsulorrhexis. Hydrodissection was accomplished with balanced salt solution. Phacoemulsification of the lens nucleus was then performed in a standard [id number] technique. The phaco time was 30 seconds with an average power of 17 %. The remaining cortical material was removed using irrigation aspiration. The capsular bag was then filled with viscoelastic. A Bausch [employer] Lomb MI60L +19.5 diopters lens was then loaded into the injector and injected into the capsular bag. The remaining viscoelastic was removed with the irrigation aspiration handpiece. The wound was hydrated and then checked and found to be watertight. The intraocular pressure was checked and found to be adequate. The wire lid speculum was removed and the patient's face was cleaned and dried. TobraDex ointment was placed in the inferior fornix. The patient was discharged to the Recovery Room having tolerated the procedure well. There were no complications. The patient will be seen tomorrow in the office for follow-up. I attest to the content of the Intraoperative Record and any orders documented therein. Any exceptions are noted below.
--- NOTE | 2017-04-01 11:17 | Discharge Instructions-SurgCtr ---
Discharge Instructions Date of Service Apr 01, 2017. Visit Reason for Visit: Cataract Right Eye Discharge Discharge Diagnosis / Problem: cataract Discharge Goals Goal(s): Improve function Activity Recommendations Activity Limitations: per Instructions/Follow-up section Anesthesia . Post Anesthesia Instructions: If you have had General Anesthesia or IV Sedation: * Do not drive today. * Resume driving when surgeon permits. * Do not make important decisions or sign legal documents today. * Call surgeon for: 1. Temperature elevations greater than 101 degrees F. 2. Uncontrollable pain. 3. Excessive bleeding. 4. Persistent nausea and vomiting. 5. Medication intolerance (nausea, vomiting or rash). * For nausea and vomiting use only clear liquids such as: tea, soda, bouillon until nausea subsides, then gradually increase diet as tolerated. * If you have any concerns or questions, call your surgeon's office. If physician is unavailable and it is an emergency, call 911 or go to the nearest emergency room. . Diet Recommendations Home Diet: resume previous diet Procedures Procedures Performed: Right Cataract Phacoemulsification With Intraocular Lens Implant Pending Studies Studies pending at discharge: no Medical Emergencies . Who to Call and When: Medical Emergencies: If at any time you feel your situation is an emergency, please call 911 immediately. . Non-Emergent Contact Non-Emergency issues call your: [employer] Machine Operator . . "Provider Documentation" section prepared by Wil Bar. .
[2017-04-01 11:18] VITALS: TEMP 36.2
--- NOTE | 2017-04-01 11:44 | Anesthesia Progress Nt - [facility] ---
Anesthesia Post Op Note Date & Time Apr 01, 2017 at 11:43 Vital Signs Pain Intensity: 0 Vital Signs Past 12 Hours Date Time Temp Pulse Resp B/P (MAP) Pulse Ox O2 Delivery O2 Flow Rate FiO2 04/01/17 11:18 36.2 60 16 153/95 (114) 95 Room Air 04/01/17 10:04 36.6 73 20 156/89 (111) 95 Room Air Notes Mental Status: alert / awake / arousable, participated in evaluation Pt Amnestic to Procedure: Yes Nausea / Vomiting: adequately controlled Pain: adequately controlled Airway Patency, RR, SpO2: stable & adequate BP & HR: stable & adequate Hydration State: stable & adequate Anesthetic Complications: no major complications apparent
[2017-04-01 11:46] VITALS: BP 131/83; PULSE 60; O2SAT 95
== END | disposition home or self-care (01) ==
LOC: X.SURG 09:41
PROVIDERS: ATTEND Ophthalmology
DX: H25.9 Unspecified age-related cataract (principal); K21.9 Gastro-esophageal reflux disease without esophagitis; E78.5 Hyperlipidemia, unspecified; Z95.1 Presence of aortocoronary bypass graft; N40.0 Benign prostatic hyperplasia without lower urinary tract symptoms; G30.1 Alzheimer's disease with late onset; F02.80 Dementia in other diseases classified elsewhere, unspecified severity, without behavioral disturbance, psychotic disturbance, mood disturbance, and anxiety; E11.22 Type 2 diabetes mellitus with diabetic chronic kidney disease; N18.3 Chronic kidney disease, stage 3 (moderate); I25.10 Atherosclerotic heart disease of native coronary artery without angina pectoris; Z79.82 Long term (current) use of aspirin; Z79.899 Other long term (current) drug therapy

== ENCOUNTER 2020-01-02 22:20 | Observation (INO) ==
[2020-01-02] MEDS ORDERED: SODIUM CHLORIDE 0.9% 500 ML IV SCH (23:00)
--- NOTE | 2020-01-02 23:03 | Emergency Department Note ---
History of Present Illness General Chief complaint: Altered Mental Status Stated complaint: AMS Source: patient, family (, called on telephone), EMS and RN notes reviewed History of Present Illness Provider complaint: Agitation Onset (ago): hour(s) 2 Current Pain Intensity: 0 Treatments prior to arrival: other (5 Haldol PO) This is a 74-year-old male who presents emergency department over concerns that the patient has become more rambunctious tonight at his detention. They have been unable to care for him. The gave the patient 5 mg of Haldol and then sent him to the emergency department. Upon arrival to the emergency department the patient has no complaints however he is noncompliant with trying to start an IV. Patient states he just wants to go back. He was sent for CAT scan of the head. Home Medications Home Medications Medication Instructions Recorded Confirmed Type aspirin 81 mg PO DAILY 01/02/20 01/02/20 History cholecalciferol (vitamin D3) 50 mcg PO DAILY 01/02/20 01/02/20 History [Vitamin D3] cyanocobalamin (vitamin B-12) 500 mcg PO DAILY 01/02/20 01/02/20 History [Vitamin B-12] divalproex [Depakote] 375 mg PO BID 01/02/20 01/02/20 History gabapentin 100 mg PO BID 01/02/20 01/02/20 History isosorbide mononitrate 120 mg PO DAILY 01/02/20 01/02/20 History levothyroxine 50 mcg PO DAILY 01/02/20 01/02/20 History lisinopril 10 mg PO DAILY 01/02/20 01/02/20 History melatonin 3 mg PO HS 01/02/20 01/02/20 History nitroglycerin 0 mg SUBLINGUAL UD 01/02/20 01/02/20 History pantoprazole [Protonix] 20 mg PO BID 01/02/20 01/02/20 History psyllium seed (sugar) [Metamucil 1 tbsp PO DAILY 01/02/20 01/02/20 History (sugar)] quetiapine 50 mg PO QAM 01/02/20 01/02/20 History quetiapine 75 mg PO HS 01/02/20 01/02/20 History rosuvastatin 20 mg PO DAILY 01/02/20 01/02/20 History sertraline [Zoloft] 75 mg PO DAILY 01/02/20 01/02/20 History Allergies Allergy/AdvReac Type Severity Reaction Status Date / Time dog dander Allergy Unknown SNEEZING Verified 01/02/20 22:51 No Known Drug Allergies Allergy Unknown . Verified 01/02/20 22:51 Dust Allergy Mild SNEEZING Uncoded 01/02/20 22:51 Past Med/Surg History Medical History Alzheimer's dementia (Chronic) BPH (benign prostatic hyperplasia) (Chronic) Coronary artery disease (Chronic) Diverticular disease of colon (Chronic) Hypertension (Chronic) Hypothyroidism (Chronic) Osteoarthritis (Chronic) Surgical History History of bilateral knee arthroplasty (Inactive) History of inguinal hernia repair (Inactive) Status post colonoscopy (Inactive) "2013 diverticulosis" Status post coronary artery bypass grafting (Chronic 1996) ROMANO-LAD, SVG-RPDA, SVG-Diagonal (all grafts patent at cath 2015) Family History Other Family history non-contributory Social History Preferred Language: Italian Communication Ability: Effective Current Living Situation: Senior Care Other Information That Helps Us Care for You: No (patient is confused) Feels Safe at Home: Declines to Answer Smoking Status: Unknown if ever smoked Review of Systems A total of 10 systems reviewed and were otherwise negative Physical Exam Vital Signs Vital Signs - 24 hr 01/03/20 23:04 01/04/20 01:09 01/04/20 01:49 Temperature 36.6 C Temperature Source Oral Pulse Rate 77 Pulse Rate [Right Finger] 81 Respiratory Rate 18 Respiratory Effort / Characteristics Non-Labored Spontaneous Respiratory Depth Normal Normal Respiratory Pattern Regular Blood Pressure [Left Arm] 133/82 Blood Pressure Mean [Left Arm] 99 Blood Pressure Position [Left Arm] Sitting Pulse Oximetry 94 Oxygen Delivery Method Room Air Room Air 01/04/20 06:27 01/04/20 16:00 Temperature 36.8 C Temperature Source Oral Pulse Rate Pulse Rate [Right Finger] 60 Respiratory Rate 20 Respiratory Effort / Characteristics Non-Labored Spontaneous Respiratory Depth Normal Respiratory Pattern Regular Blood Pressure [Left Arm] 173/103 H Blood Pressure Mean [Left Arm] 126 Blood Pressure Position [Left Arm] Pulse Oximetry 96 Oxygen Delivery Method Room Air Room Air VITAL SIGNS - Vital signs and nursing notes were reviewed. GENERAL - 74-year-old male appearing stated age who is in no acute distress. Communicates well with provider and answers questions appropriately. SKIN - Without rashes. HEAD - NC/AT. EYES - PERRL with EOMI bilaterally. Sclera anicteric. Palpebral conjunctiva pink and moist with no injection noted. EARS - No deformities of external structures noted on gross examination bilaterally. No pain elicited with palpation of the tragus bilaterally. External auditory canals without discharge or otorrhea. Tympanic membranes pearly child without retraction or bulging. No fluid or purulent material visualized behind the TM. Handle of malleus, umbo, cone of light, pars tensa/flaccid all easily visualized. NOSE - Midline and without cyanosis. No epistaxis or purulent drainage noted. Septum midline without deviation or septal hematoma noted. MOUTH/OROPHARYNX - Without perioral cyanosis. Buccal mucosa pink and moist and without leukoplakia. Tongue midline with equal elevation of palate bilaterally. No tonsillar hypertrophy, erythema, or exudates noted. dentition noted. NECK - Neck with FROM. Supple to palpation. lymphadenopathy noted. No nuchal rigidity. LUNGS - Chest wall symmetric without accessory muscle use, intercostals retractions, or central cyanosis. Normal vesicular breath sounds CTA B/L. No wheezes, rales, or rhonchi appreciated. CARDIAC - RRR with S1/S2. No murmur, rubs, or gallops appreciated. ABDOMEN - Abdominal contour without pulsations or visible masses. BS normoactive all four quadrants. No tenderness, palpable masses, hepatosplenomegaly, or ascites noted. EXTREMITIES - No clubbing or peripheral cyanosis. No pretibial edema present. +3/5 radial, posterior tibial, and dorsalis pedis pulses palpated throughout. +5/5 strength noted in UE/LE bilaterally. NEUROLOGIC - Cranial nerves II through XII grossly intact. Sensory intact to light touch throughout. Patellar reflexes +2/4. PSYCH - Doesnt know where he is, date or president, Does not cooperate fully with examiner. Pt is very pleasant and interacts well with examiner. Course Administered Medications Acetaminophen (Tylenol) 650 mg PO Q4H PRN PRN Reason: pain/fever Stop: 02/02/20 03:21 Last Admin: 01/03/20 03:44 Dose: 650 mg Documented by: [id number] Aspirin (Ecotrin Ectab) 81 mg PO DAILY [facility] Stop: 02/02/20 08:59 Last Admin: 01/04/20 08:41 Dose: 81 mg Documented by: [id number] Admin: 01/03/20 12:01 Dose: 81 mg Documented by: [id number] Cyanocobalamin (Vitamin B-12) 500 mcg PO DAILY [facility] Stop: 02/02/20 08:59 Last Admin: 01/04/20 08:41 Dose: 500 mcg Documented by: [id number] Admin: 01/03/20 12:01 Dose: 500 mcg Documented by: [id number] Divalproex Sodium (Depakote Delay Release) 375 mg PO BID [facility] Stop: 02/02/20 08:59 Last Admin: 01/04/20 20:58 Dose: Not Given Documented by: [id number] Admin: 01/04/20 08:41 Dose: 375 mg Documented by: [id number] Admin: 01/03/20 22:33 Dose: Not Given Documented by: [id number] Admin: 01/03/20 11:59 Dose: 375 mg Documented by: [id number] Gabapentin (Neurontin) 100 mg PO BID [facility] Stop: 02/02/20 08:59 Last Admin: 01/04/20 20:58 Dose: Not Given Documented by: [id number] Admin: 01/04/20 08:39 Dose: 100 mg Documented by: [id number] Admin: 01/03/20 21:50 Dose: 100 mg Documented by: [id number] Admin: 01/03/20 12:03 Dose: 100 mg Documented by: [id number] Isosorbide Mononitrate (Imdur Extended Rel) 120 mg PO DAILY [facility] Stop: 02/02/20 08:59 Last Admin: 01/04/20 08:41 Dose: 120 mg Documented by: [id number] Admin: 01/03/20 12:01 Dose: 120 mg Documented by: [id number] Levothyroxine Sodium (Synthroid) 50 mcg PO DAILYBB [facility] Stop: 02/02/20 06:29 Last Admin: 01/04/20 05:46 Dose: Not Given Documented by: [id number] Admin: 01/03/20 06:09 Dose: 50 mcg Documented by: [id number] Lisinopril (Zestril) 10 mg PO DAILY [facility] Stop: 02/02/20 08:59 Last Admin: 01/04/20 08:41 Dose: 10 mg Documented by: [id number] Admin: 01/03/20 12:00 Dose: 10 mg Documented by: [id number] Melatonin (Melatonin) 3 mg PO [facility] Stop: 02/02/20 03:29 Last Admin: 01/04/20 20:58 Dose: Not Given Documented by: [id number] Admin: 01/03/20 22:05 Dose: Not Given Documented by: [id number] Admin: 01/03/20 04:08 Dose: Not Given Documented by: [id number] Morphine Sulfate (Morphine Sulfate) 2 mg IV Q4H PRN PRN Reason: Pain Stop: 01/17/20 04:08 Last Admin: 01/03/20 23:43 Dose: 2 mg Documented by: [id number] Admin: 01/03/20 06:36 Dose: 2 mg Documented by: [id number] Pantoprazole Sodium (Protonix) 40 mg PO BID [facility] Stop: 02/02/20 08:59 Last Admin: 01/04/20 20:58 Dose: Not Given Documented by: [id number] Admin: 01/04/20 08:42 Dose: 40 mg Documented by: [id number] Admin: 01/03/20 21:50 Dose: 40 mg Documented by: [id number] Admin: 01/03/20 12:01 Dose: 40 mg Documented by: [id number] Psyllium Hydrophilic Mucilloid (Metamucil) 1 pkt PO DAILY [facility] Stop: 02/02/20 08:59 Last Admin: 01/04/20 08:42 Dose: 1 pkt Documented by: [id number] Admin: 01/03/20 12:02 Dose: 1 pkt Documented by: [id number] Quetiapine Fumarate (Seroquel) 75 mg PO HS [facility] Stop: 02/02/20 20:59 Last Admin: 01/04/20 20:58 Dose: Not Given Documented by: [id number] Admin: 01/03/20 21:49 Dose: 75 mg Documented by: [id number] Quetiapine Fumarate (Seroquel) 50 mg PO QAM [facility] Stop: 02/02/20 08:59 Last Admin: 01/04/20 08:40 Dose: 50 mg Documented by: [id number] Admin: 01/03/20 12:00 Dose: 50 mg Documented by: [id number] Rosuvastatin Calcium (Crestor) 20 mg PO DAILY [facility] Stop: 02/02/20 08:59 Last Admin: 01/04/20 08:41 Dose: 20 mg Documented by: [id number] Admin: 01/03/20 11:59 Dose: 20 mg Documented by: [id number] Sertraline HCl (Zoloft) 75 mg PO DAILY [facility] Stop: 02/02/20 08:59 Last Admin: 01/04/20 08:42 Dose: 75 mg Documented by: [id number] Admin: 01/03/20 11:59 Dose: 75 mg Documented by: [id number] Discontinued Medications Amlodipine Besylate (Norvasc) 2.5 mg PO NOW ONE Stop: 01/04/20 14:01 Last Admin: 01/04/20 15:16 Dose: Not Given Documented by: [id number] Haloperidol Lactate (Haldol) 5 mg IM NOW STA Stop: 01/04/20 19:35 Last Admin: 01/04/20 19:39 Dose: 5 mg Documented by: [id number] Haloperidol Lactate (Haldol) Confirm Administered Dose 5 mg .ROUTE .[facility] ONE Stop: 01/04/20 19:37 Last Admin: 01/04/20 20:16 Dose: Not Given Documented by: [id number] Haloperidol Lactate (Haldol) 5 mg IM NOW STA Stop: 01/04/20 20:10 Last Admin: 01/04/20 20:15 Dose: 5 mg Documented by: [id number] Haloperidol Lactate (Haldol) 5 mg IM NOW STA Stop: 01/04/20 20:36 Last Admin: 01/04/20 20:45 Dose: 5 mg Documented by: [id number] Sodium Chloride (Nss) 500 mls @ 999 mls/hr IV .Q31M [facility] Stop: 01/02/20 23:30 Last Admin: 01/02/20 23:19 Dose: Not Given Documented by: [id number] Valproic Acid 375 mg/ Dextrose 53.75 mls @ 55 mls/hr IV NOW ONE Stop: 01/03/20 23:28 Last Infusion: 01/04/20 00:43 Dose: 0 mls/hr Documented by: [id number] Admin: 01/03/20 23:37 Dose: 55 mls/hr Documented by: [id number] Lorazepam (Ativan) 1 mg in 2 mls @ 2 mls/min IV NOW STA Stop: 01/04/20 19:35 Last Admin: 01/04/20 19:40 Dose: 2 mls/min Documented by: [id number] Lorazepam (Ativan) 2 mg in 4 mls @ 4 mls/min IV NOW STA Stop: 01/04/20 20:10 Last Admin: 01/04/20 20:16 Dose: 4 mls/min Documented by: [id number] Lorazepam (Ativan) Confirm Administered Dose 2 mg .ROUTE .[facility]-MED ONE Stop: 01/04/20 19:38 Last Admin: 01/04/20 20:16 Dose: Not Given Documented by: [id number] Medical Decision Making Differential Diagnosis Infection, dehydration, metabolic abnormality, hypo/hyperglycemia, electrolyte disturbance, anemia, hypoxia, cardiac sources, intracerebral event, toxicologic, neurologic, as well as other pathologies. Medical Records Attestation: I reviewed the patient's medical records. Home Medications Current Medication List: was personally reviewed by me Laboratory Data Attestation: I reviewed the patient's lab results. Result diagrams: 01/04/20 05:51 01/04/20 05:51 Lab Results 01/03/20 01/03/20 01/03/20 Range/Units 00:05 00:05 00:05 WBC (4.8-10.8) K/uL RBC (4.7-6.1) M/uL Hgb (14.0-18.0) g/dL Hct (42-52) % MCV (80-100) fL MCH (25-34) pg MCHC (32-36) g/dL RDW Std Deviation (36.4-46.3) fL RDW Coeff of Dawson (11.5-14.5) % Plt Count (130-400) K/uL MPV (7.4-10.4) fL Immature Gran % (Auto) % Neut % (Auto) % Lymph % (Auto) % [place] % (Auto) % Eos % (Auto) % Baso % (Auto) % Neut # (Auto) (1.4-6.5) K/uL Lymph # (Auto) (1.2-3.4) K/uL [place] # (Auto) (0.11-0.59) K/uL Eos # (Auto) (0-0.5) K/uL Baso # (Auto) (0-0.2) K/uL Immature Gran # (Auto) (0.00-0.02) K/uL ESR 2 (0-14) mm/hr Sodium 142 (136-145) mmol/L Potassium 4.5 (3.5-5.1) mmol/L Chloride 109 H (98-107) mmol/L Carbon Dioxide 27 (21-32) mmol/L Anion Gap 6.0 (3-11) BUN 19 H (7-18) mg/dl Creatinine 1.23 (0.6-1.4) mg/dl Est Cr Clr Drug Dosing 58.1 ml/min Est GFR ( Amer) 66.1 Est GFR (Non-Af Amer) 57.1 BUN/Creatinine Ratio 15.1 (10-20) Glucose 89 (70-99) mg/dl POC Glucose (70-99) mg/dl Calcium 8.7 (8.5-10.1) mg/dl Phosphorus 3.5 (2.5-4.9) mg/dl Magnesium 2.1 (1.8-2.4) mg/dl Ferritin 142.7 (8-388) ng/ml Total Bilirubin 0.3 (0.2-1) mg/dl AST 20 (15-37) U/L ALT 31 (12-78) U/L Alkaline Phosphatase 39 L (45-117) U/L Lactate Dehydrogenase 120 (87-241) U/L Total Creatine Kinase Cancelled Troponin I 0.188 H* (0-0.045) ng/ml C-Reactive Protein < 0.29 (0-0.29) mg/dl Total Protein 6.4 (6.4-8.2) gm/dl Albumin 3.2 L (3.4-5.0) gm/dl Globulin 3.2 (2.5-4.0) gm/dl Albumin/Globulin Ratio 1.0 (0.9-2) TSH Cancelled Nasal Screen MRSA (PCR) (Negative) 01/03/20 01/03/20 01/03/20 Range/Units 00:05 07:29 12:37 WBC 7.05 (4.8-10.8) K/uL RBC 3.98 L (4.7-6.1) M/uL Hgb 12.3 L (14.0-18.0) g/dL Hct 37.4 L (42-52) % MCV 94.0 (80-100) fL MCH 30.9 (25-34) pg MCHC 32.9 (32-36) g/dL RDW Std Deviation 45.8 (36.4-46.3) fL RDW Coeff of Dawson 13.2 (11.5-14.5) % Plt Count 154 (130-400) K/uL MPV 10.7 H (7.4-10.4) fL Immature Gran % (Auto) 0.3 % Neut % (Auto) 57.5 % Lymph % (Auto) 29.1 % [place] % (Auto) 9.2 % Eos % (Auto) 3.5 % Baso % (Auto) 0.4 % Neut # (Auto) 4.05 (1.4-6.5) K/uL Lymph # (Auto) 2.05 (1.2-3.4) K/uL [place] # (Auto) 0.65 H (0.11-0.59) K/uL Eos # (Auto) 0.25 (0-0.5) K/uL Baso # (Auto) 0.03 (0-0.2) K/uL Immature Gran # (Auto) 0.02 (0.00-0.02) K/uL ESR (0-14) mm/hr Sodium (136-145) mmol/L Potassium (3.5-5.1) mmol/L Chloride (98-107) mmol/L Carbon Dioxide (21-32) mmol/L Anion Gap (3-11) BUN (7-18) mg/dl Creatinine (0.6-1.4) mg/dl Est Cr Clr Drug Dosing ml/min Est GFR ( Amer) Est GFR (Non-Af Amer) BUN/Creatinine Ratio (10-20) Glucose (70-99) mg/dl POC Glucose (70-99) mg/dl Calcium (8.5-10.1) mg/dl Phosphorus (2.5-4.9) mg/dl Magnesium (1.8-2.4) mg/dl Ferritin (8-388) ng/ml Total Bilirubin (0.2-1) mg/dl AST (15-37) U/L ALT (12-78) U/L Alkaline Phosphatase (45-117) U/L Lactate Dehydrogenase (87-241) U/L Total Creatine Kinase Troponin I 0.192 H* 0.220 H* (0-0.045) ng/ml C-Reactive Protein (0-0.29) mg/dl Total Protein (6.4-8.2) gm/dl Albumin (3.4-5.0) gm/dl Globulin (2.5-4.0) gm/dl Albumin/Globulin Ratio (0.9-2) TSH 4.260 Nasal Screen MRSA (PCR) (Negative) 01/03/20 01/03/20 01/04/20 Range/Units 15:11 16:21 05:51 WBC 4.78 L (4.8-10.8) K/uL RBC 4.27 L (4.7-6.1) M/uL Hgb 12.9 L (14.0-18.0) g/dL Hct 39.6 L (42-52) % MCV 92.7 (80-100) fL MCH 30.2 (25-34) pg MCHC 32.6 (32-36) g/dL RDW Std Deviation 45.1 (36.4-46.3) fL RDW Coeff of Dawson 13.4 (11.5-14.5) % Plt Count 143 (130-400) K/uL MPV 10.6 H (7.4-10.4) fL Immature Gran % (Auto) 0.0 % Neut % (Auto) 49.2 % Lymph % (Auto) 32.6 % [place] % (Auto) 11.7 % Eos % (Auto) 5.9 % Baso % (Auto) 0.6 % Neut # (Auto) 2.35 (1.4-6.5) K/uL Lymph # (Auto) 1.56 (1.2-3.4) K/uL [place] # (Auto) 0.56 (0.11-0.59) K/uL Eos # (Auto) 0.28 (0-0.5) K/uL Baso # (Auto) 0.03 (0-0.2) K/uL Immature Gran # (Auto) 0.00 (0.00-0.02) K/uL ESR (0-14) mm/hr Sodium (136-145) mmol/L Potassium (3.5-5.1) mmol/L Chloride (98-107) mmol/L Carbon Dioxide (21-32) mmol/L Anion Gap (3-11) BUN (7-18) mg/dl Creatinine (0.6-1.4) mg/dl Est Cr Clr Drug Dosing ml/min Est GFR ( Amer) Est GFR (Non-Af Amer) BUN/Creatinine Ratio (10-20) Glucose (70-99) mg/dl POC Glucose 127 H (70-99) mg/dl Calcium (8.5-10.1) mg/dl Phosphorus (2.5-4.9) mg/dl Magnesium (1.8-2.4) mg/dl Ferritin (8-388) ng/ml Total Bilirubin (0.2-1) mg/dl AST (15-37) U/L ALT (12-78) U/L Alkaline Phosphatase (45-117) U/L Lactate Dehydrogenase (87-241) U/L Total Creatine Kinase Troponin I 0.188 H* (0-0.045) ng/ml C-Reactive Protein (0-0.29) mg/dl Total Protein (6.4-8.2) gm/dl Albumin (3.4-5.0) gm/dl Globulin (2.5-4.0) gm/dl Albumin/Globulin Ratio (0.9-2) TSH Nasal Screen MRSA (PCR) (Negative) 01/04/20 01/04/20 Range/Units 05:51 06:20 WBC (4.8-10.8) K/uL RBC (4.7-6.1) M/uL Hgb (14.0-18.0) g/dL Hct (42-52) % MCV (80-100) fL MCH (25-34) pg MCHC (32-36) g/dL RDW Std Deviation (36.4-46.3) fL RDW Coeff of Dawson (11.5-14.5) % Plt Count (130-400) K/uL MPV (7.4-10.4) fL Immature Gran % (Auto) % Neut % (Auto) % Lymph % (Auto) % [place] % (Auto) % Eos % (Auto) % Baso % (Auto) % Neut # (Auto) (1.4-6.5) K/uL Lymph # (Auto) (1.2-3.4) K/uL [place] # (Auto) (0.11-0.59) K/uL Eos # (Auto) (0-0.5) K/uL Baso # (Auto) (0-0.2) K/uL Immature Gran # (Auto) (0.00-0.02) K/uL ESR (0-14) mm/hr Sodium 141 (136-145) mmol/L Potassium 3.9 (3.5-5.1) mmol/L Chloride 109 H (98-107) mmol/L Carbon Dioxide 26 (21-32) mmol/L Anion Gap 6.0 (3-11) BUN 19 H (7-18) mg/dl Creatinine 1.26 (0.6-1.4) mg/dl Est Cr Clr Drug Dosing 52.3 ml/min Est GFR ( Amer) 64.2 Est GFR (Non-Af Amer) 55.4 BUN/Creatinine Ratio 15.0 (10-20) Glucose 84 (70-99) mg/dl POC Glucose (70-99) mg/dl Calcium 8.6 (8.5-10.1) mg/dl Phosphorus (2.5-4.9) mg/dl Magnesium (1.8-2.4) mg/dl Ferritin (8-388) ng/ml Total Bilirubin (0.2-1) mg/dl AST (15-37) U/L ALT (12-78) U/L Alkaline Phosphatase (45-117) U/L Lactate Dehydrogenase (87-241) U/L Total Creatine Kinase Troponin I (0-0.045) ng/ml C-Reactive Protein (0-0.29) mg/dl Total Protein (6.4-8.2) gm/dl Albumin (3.4-5.0) gm/dl Globulin (2.5-4.0) gm/dl Albumin/Globulin Ratio (0.9-2) TSH Nasal Screen MRSA (PCR) Negative (Negative) Imaging Data Radiologist's Impression: [facility], [place] [phone] CT Scan Report Patient: GERALDO PEREZ Date: 01/03/20 MR#: [id number]: [address] Acct ID:[id number]: Date: 1945[facility] Zip[facility] [place] [address] Age: 74Location: 2W Sex: M Room/Bed: W262-2 Att Phy: Laquita Love D.O.Diagnosis: AMS, ELEVATED TROP Marifer Phy: [place], [facility] Date: 01/02/20 Fam Phy:Interpreting Phy: Emir Avery MD Admit Phy: Laquita Love D.O. Ordering Phy: Darwin Lloyd MD cc: ~ HEAD CT NONCONTRAST CT DOSE: 614.27 mGy.cm HISTORY: altered mental status TECHNIQUE: Multiaxial CT images of the head were performed without the use of intravenous contrast. Automated exposure control was utilized for this study. A dose lowering technique was utilized adhering to the principles of ALARA. Comparison: Head CT 05/20/2016. Findings: The paranasal sinuses and mastoid air cells are clear. The calvarium and skull base are intact. There is no mass, hematoma, midline shift, acute infarct. White matter hypodensity is nonspecific but suggestive of microvascular ischemic change. The ventricles and sulci demonstrate mild age-related involutional changes. Impression: No acute intracranial abnormality. Atrophy and microvascular ischemic changes. ACT 112: Negative or not required by law. Electronically signed by: Emir Avery M.D. 01/03/2020 7:09 AM Dictated: 01/03/20 0708 Transcribed: 01/03/20 0708 [facility], [place] [phone] XRay Report Patient: GERALDO PEREZ Date: 01/03/20 MR#: [id number]: [address] Acct ID:[id number]: Date: [address] [place] [address] Zip: [place] [address] Age: 74Location: 2W Sex: M Room/Bed: W262-2 Att Phy: Rohit Curtis M.D.Diagnosis: AMS, ELEVATED TROP Marifer Phy: [place], [facility] Date: 01/03/20 Fam Phy:Interpreting Phy: Roger Zavala MD Admit Phy: Laquita Love D.O. Ordering Phy: Da Adma MD cc: ~ XR forearm RT 2V CLINICAL HISTORY: arm pain bony tenderness, dementia pain. Edema. COMPARISON: None. DISCUSSION: The bones and joint spaces appear intact. There is no evidence of fracture, dislocation or bony disease. There is no evidence for soft tissue swelling. IMPRESSION: Negative study. ACT 112: Negative or not required by law. The above report was generated using voice recognition software. It may contain grammatical, syntax or spelling errors. [facility], [place] [phone] XRay Report Patient: GERALDO PEREZ Date: 01/03/20 MR#: [id number]: [address] Acct ID:[id number]: Date: [address] [place] [address] Zip: [place] [address] Age: 74Location: 2W Sex: M Room/Bed: [facility] Att Phy: Rohit Curtis M.D.Diagnosis: AMS, ELEVATED TROP Marifer Phy: Anabel Alvarez Date: 01/03/20 [facility] Phy:Interpreting Phy: Roger Zavala MD Admit Phy: Laquita Love D.O. Ordering Phy: Da Adam MD cc: ~ XR humerus RT 2V CLINICAL HISTORY: Extreme arm pain, dementia pain COMPARISON: None. DISCUSSION: The bones and joint spaces appear intact. There is no evidence of fracture, dislocation or bony disease. There is no evidence for soft tissue swelling. IMPRESSION: Negative study. ACT 112: Negative or not required by law. The above report was generated using voice recognition software. It may contain grammatical, syntax or spelling errors. Electronically signed by: Roger Zavala M.D. 01/03/2020 9:34 AM Dictated: 01/03/20933 Transcribed: 01/03/20933 [facility], [place] [phone] XRay Report Patient: GERALDO PEREZ Date: 01/03/20 MR#: [id number]: [address] Acct ID:[id number]: Date: 1945[facility] Zip: [place] [address] Age: 74Location: 2W Sex: M Room/Bed: W262-2 Att Phy: Rohit Curtis M.D.Diagnosis: AMS, ELEVATED TROP [place] Phy: [place] Date: 01/03/20 Fam Phy:Interpreting Phy: Roger Zavala MD Admit Phy: Laquita Love D.OSmiley Ordering Phy: Da Adam MD cc: ~ XR lumbar spine 2-3V CLINICAL HISTORY: Back Pain, dementia COMPARISON STUDY: No previous studies for comparison. FINDINGS: Moderate degenerative disc changes throughout. Minimal grade 1 anterolisthesis of L4-L5 felt to be secondary to degenerative change of the posterior elements. No evidence for a compression deformity. Moderate degenerative change of the posterior facets throughout. IMPRESSION: Generalized degenerative change. No acute process. ACT 112: Negative or not required by law. The above report was generated using voice recognition software. It may contain grammatical, syntax or spelling errors. Electronically signed by: Roger Zavala M.D. 01/03/2020 9:58 AM Dictated: 01/03/20954 Transcribed: 01/03/20954 [place] [phone] XRay Report Patient: GERALDO PEREZ Date: 01/03/20 MR#: [id number]: [address] Acct ID:[id number]: Date: 1945[facility] Zip: [place] [address] Age: 74Location: 2W Sex: M Room/Bed: W2622 Att Phy: Rohit Curtis M.D.Diagnosis: AMS, ELEVATED TROP Marifer Phy: [facility] Date: 01/03/20 Fam Phy:Interpreting Phy: Roger Zavala MD Admit Phy: Laquita Love D.OSmiley Ordering Phy: Da Adam MD cc: ~ XR thoracic spine 3V routine HISTORY: Pain Back Pain, tenderness to bony prominence dmentia COMPARISON: None. FINDINGS: There is no fracture. Mild scoliosis General degenerative disc change primarily in the mid to lower thoracic region. No evidence for compression deformity. Moderate anterior and lateral osteophytic reaction throughout. IMPRESSION: Considerable degenerative disc changes mid to lower thoracic region. No acute process. Mild scoliosis. ACT 112: Negative or not required by law. The above report was generated using voice recognition software. It may contain grammatical, syntax or spelling errors. Electronically signed by: Roger Zavala M.D. 01/03/2020 9:37 AM Dictated: 01/03/20934 Transcribed: 01/03/20934 ECG Data Attestation: I personally reviewed and interpreted this ECG as follows: Rate (beats per minute): 64 Rhythm: + sinus rhythm ECG Intervals/blocks: + First degree AV block, + Right Bundle branch block and + Normal QT-c (462) ECG [place]: + Normal ECG ST segments: no ST depression and no ST elevation ECG Findings: + Q waves (Inferior) Comparison ECG Date: from (11/02/2016) Change: no significant change MDM Narrative This is a 74-year-old male who presents the emergency department over concerns that the patient is more agitated at his detention. Patient was given Haldol at the detention prior to coming in. Upon arrival to the emergency department the patient was originally noncooperative however the patient's was able to convince him to obtain an IV. He then was able to get an IV as well as lab work. I am concerned because the patient's troponin is elevated though he denies any chest pain. I did discuss the case with the hospitalist service who did agree to admit the patient Patient was seen and evaluated as above in room A3. Review was performed of nursing notes and vital signs. I did review pertinent previous visits and patient history. After obtaining a thorough history and physical examination the above work up was performed. While in the department, I personally reevaluated the patient several times and each time the patient was found to be resting comfortably. The patient was educated upon management, educated upon todays findings/results, educated upon importance of follow up from today's visit, educated upon symptoms in which to return, had questions answered prior to discharge, verbalized understanding, and was discharged home in good condition. An order was placed for continuous cardiac monitoring. The monitor shows a rate of 60 with Normal Sinus rhythm. The patient was evaluated during the global COVID-19 pandemic, and that diagnosis was suspected/considered upon their initial presentation. Their evaluation, treatment and testing was consistent with current guidelines for patients who present with complaints or symptoms that may be related to COVID- 19. Impression & Plan Agitation, Hypertension, Elevated troponin Discharge Plan Visit Data *Final* Discharge Date/Time: 01/03/20 02:48 Chief Complaint: Altered Mental Status Stated Complaint: AMS ED Provider: Darwin Lloyd Discharge Problem: Agitation, Hypertension, Elevated troponin Patient Disposition: Admitted As Inpatient Discharge Instructions Interventions: ED Discharge Assessment Last Done: 01/03/20 02:48 Discharge Problem: Hypertension Qualifiers: Hypertension type: unspecified Qualified Code(s): I10 - Essential (primary) hypertension
[2020-01-03 00:28] LABS: Basophils # (auto) 0.03 K/uL (0-0.2); Basophils % (auto) 0.4 %; Eosinophils # (auto) 0.25 K/uL (0-0.5); Eosinophils % (auto) 3.5 %; Hematocrit (blood only) 37.4 % (42-52); Hemoglobin 12.3 g/dL (14.0-18.0); Immature Granulocytes # (auto) 0.02 K/uL (0.00-0.02); Immature Granulocytes % (auto) 0.3 %; Lymphocytes # (auto) 2.05 K/uL (1.2-3.4); Lymphocytes % (auto) 29.1 %; Mean Corpuscular Hemoglobin 30.9 pg (25-34); Mean Corpuscular Hgb Conc 32.9 g/dL (32-36); Mean Platelet Volume 10.7 fL (7.4-10.4); Monocytes # (auto) 0.65 K/uL (0.11-0.59); Monocytes % (auto) 9.2 %; Neutrophils # (auto) 4.05 K/uL (1.4-6.5); Neutrophils % (auto) 57.5 %; Platelet Count 154 K/uL (130-400); RDW Coefficient of Variation 13.2 % (11.5-14.5); RDW Standard Deviation 45.8 fL (36.4-46.3); Red Blood Count 3.98 M/uL (4.7-6.1); White Blood Count 7.05 K/uL (4.8-10.8)
[2020-01-03 00:32] LABS: Albumin Level 3.2 gm/dl (3.4-5.0); Creatinine Clr Calc Pharmacy 58.1 ml/min; Est GFR (African American) 66.1; Est GFR (Non-African American) 57.1
[2020-01-03 00:41] LABS: Alanine Aminotransferase 31 U/L (12-78); Alkaline Phosphatase 39 U/L (45-117); Aspartate Aminotransferase 20 U/L (15-37); Bilirubin,Total 0.3 mg/dl (0.2-1); C Reactive Protein < 0.29 mg/dl (0-0.29); Ferritin 142.7 ng/ml (8-388); Globulin 3.2 gm/dl (2.5-4.0); Total Protein 6.4 gm/dl (6.4-8.2); Troponin I 0.188 ng/ml (0-0.045)
[2020-01-03 00:47] LABS: BUN Creatinine Ratio 15.1 (10-20); Blood Urea Nitrogen 19 mg/dl (7-18); Calcium 8.7 mg/dl (8.5-10.1); Carbon Dioxide 27 mmol/L (21-32); Chloride 109 mmol/L (98-107); Glucose 89 mg/dl (70-99); Potassium 4.5 mmol/L (3.5-5.1); Sodium 142 mmol/L (136-145)
--- NOTE | 2020-01-03 01:59 | History & Physical Report ---
Date of Service January 03, 2020 Assessment & Plan (1) Agitation: 74yo C male with history of dementia, agitation in the past presenting from [facility] for AMS, increased agitation. Patient reportedly biting and swinging at nursing staff. Currently resting but still becomes agitated when p ressed for questions or to participate in exam. Grossly nonfocal neurological exam, electroltyes WNL, CT head unremarkable. -Check UA -Check Depakote level -Check TSH -Continue home medications - Seroquel 50mg po qAM and 75mg po qHS, Depakote 375mg po BID -Continue Sertraline -Neurochecks q 4 hours -Reorientation as needed -Will order 1:1 sitter if needed Present on Admission?: Yes (2) Elevated troponin: Patient with history of CAD s/p CABG, elevated troponin today at 0.188. EKG with some non-specific changes. -Telemetry monitoring -Continue to trend troponin -Check 2D echo -Continue ASA 81mg po daily -Continue Crestor 20mg po daily Present on Admission?: Yes (3) Coronary artery disease: Known CAD, elevated troponin as above -Trend troponin -Check 2D echo in AM -Continue ASA, Crestor, Lisinopril - Present on Admission?: Yes (4) Alzheimer's dementia: Agitation as above -Continue Seroquel, Depakote -Delirium prevention strategies with frequent orientation Present on Admission?: Yes (5) BPH (benign prostatic hyperplasia): Chronic. Patient not on any medications -Monitor UOP Present on Admission?: Yes (6) Hypothyroidism: Chronic -Check TSH -Continue Synthroid Present on Admission?: Yes (7) Hypertension: Blood pressure slightly elevated -Continue Lisinopril, Isosorbide -Continue to monitor F/E/N - Heplock. Monitor electrolytes. Heart healthy diet as tolerated Ppx - low risk for DVT Code - DNR/DNI per review of records from [facility] Dispo - Observation to medical floor with telemetry Present on Admission?: Yes Admission and Anticipated Discharge Date Admission Date: 01/03/20 Anticipated date of discharge: 01/04/20 History of Present Illness Chief Complaint: AMS, agitation Primary Care Provider: [facility] Ion Villareal is a 74yo C male with history of dementia with behavioral issues/agitation in the past. Patient reportedly fell yesterday. This evening he became acutely agitated and was biting staff members at [facility] therefore he was transferred to [facility]. On arrival he was found to be afebrile, HTN otherwise HD stable, NAD. Agitated. ER Course: NSS x 500mL Allergies Allergy/AdvReac Type Severity Reaction Status Date / Time dog dander Allergy Unknown SNEEZING Verified 01/02/20 22:51 No Known Drug Allergies Allergy Unknown . Verified 01/02/20 22:51 Dust Allergy Mild SNEEZING Uncoded 01/02/20 22:51 Home Medications Home Medications Medication Instructions Recorded Confirmed Type aspirin 81 mg PO DAILY 01/02/20 01/02/20 History cholecalciferol (vitamin D3) 50 mcg PO DAILY 01/02/20 01/02/20 History [Vitamin D3] cyanocobalamin (vitamin B-12) 500 mcg PO DAILY 01/02/20 01/02/20 History [Vitamin B-12] divalproex [Depakote] 375 mg PO BID 01/02/20 01/02/20 History gabapentin 100 mg PO BID 01/02/20 01/02/20 History isosorbide mononitrate 120 mg PO DAILY 01/02/20 01/02/20 History levothyroxine 50 mcg PO DAILY 01/02/20 01/02/20 History lisinopril 10 mg PO DAILY 01/02/20 01/02/20 History melatonin 3 mg PO HS 01/02/20 01/02/20 History nitroglycerin 0 mg SUBLINGUAL UD 01/02/20 01/02/20 History pantoprazole [Protonix] 20 mg PO BID 01/02/20 01/02/20 History psyllium seed (sugar) [Metamucil 1 tbsp PO DAILY 01/02/20 01/02/20 History (sugar)] quetiapine 50 mg PO QAM 01/02/20 01/02/20 History quetiapine 75 mg PO HS 01/02/20 01/02/20 History rosuvastatin 20 mg PO DAILY 01/02/20 01/02/20 History sertraline [Zoloft] 75 mg PO DAILY 01/02/20 01/02/20 History Past Med/Surg History Medical History (Updated 01/03/20 @ 02:17 by Laquita Love DO) Alzheimer's dementia (Chronic) BPH (benign prostatic hyperplasia) (Chronic) Coronary artery disease (Chronic) "s/p CABG x 3 in 1996" Diverticular disease of colon (Chronic) Hypertension (Chronic) Hypothyroidism (Chronic) Osteoarthritis (Chronic) Surgical History (Updated 01/03/20 @ 01:56 by Laquita Love DO) History of bilateral knee arthroplasty (Chronic) History of inguinal hernia repair (Chronic) Status post colonoscopy (Chronic) "2013 diverticulosis" Status post coronary artery bypass grafting (Chronic) Family History (Updated 01/03/20 @ 01:57 by Laquita Love DO) Other Family history non-contributory Social History Smoking Status: Unknown if ever smoked Review of Systems Review of Systems: Unobtainable due to cognitive status Physical Exam Physical Exam: General: patient resting comfortably, arousable, oriented to self Skin: warm, dry, intact, no rashes or lesions HEENT: NC/AT, anicteric sclera, conjunctiva without injection, external ear normal to inspection and nontender, nares patent, moist mucus membranes, dentition intact, no oropharyngeal lesions, neck supple, trachea midline, no LAD, no thyromegaly, no JVD Heart: +S1/S2, regular, bradycardic, no m/r/g Lungs: equal air entry bilaterally, no rales/rhonchi/wheezes, poor participation with exam Abd: +BS, soft, NT/ND, no masses/organomegaly/ascites Ext: warm, 2+ pulses in UE/LE bilaterally, no clubbing/cyanosis or edema Neuro: nonfocal, patient AA&O x to self, patient grossly nonfocal, moving all extremities with equal strength Results & Data Results & Data ([facility]) Vital Signs (Past 12 Hours) Vital Signs Temp Pulse Pulse Resp BP BP Pulse Ox 01/03/20 00:30 57 L 16 178/93 H 01/02/20 22:54 37.0 C 68 18 122/76 98 Laboratory Results Lab Results 01/03/20 01/03/20 01/03/20 Range/Units 00:05 00:05 00:05 WBC (4.8-10.8) K/uL RBC (4.7-6.1) M/uL Hgb (14.0-18.0) g/dL Hct (42-52) % MCV (80-100) fL MCH (25-34) pg MCHC (32-36) g/dL RDW Std Deviation (36.4-46.3) fL RDW Coeff of Dawson (11.5-14.5) % Plt Count (130-400) K/uL MPV (7.4-10.4) fL Immature Gran % (Auto) % Neut % (Auto) % Lymph % (Auto) % Mayes % (Auto) % Eos % (Auto) % Baso % (Auto) % Neut # (Auto) (1.4-6.5) K/uL Lymph # (Auto) (1.2-3.4) K/uL Mayes # (Auto) (0.11-0.59) K/uL Eos # (Auto) (0-0.5) K/uL Baso # (Auto) (0-0.2) K/uL Immature Gran # (Auto) (0.00-0.02) K/uL ESR 2 (0-14) mm/hr Sodium 142 (136-145) mmol/L Potassium 4.5 (3.5-5.1) mmol/L Chloride 109 H (98-107) mmol/L Carbon Dioxide 27 (21-32) mmol/L Anion Gap 6.0 (3-11) BUN 19 H (7-18) mg/dl Creatinine 1.23 (0.6-1.4) mg/dl Est Cr Clr Drug Dosing 58.1 ml/min Est GFR ( Amer) 66.1 Est GFR (Non-Af Amer) 57.1 BUN/Creatinine Ratio 15.1 (10-20) Glucose 89 (70-99) mg/dl Calcium 8.7 (8.5-10.1) mg/dl Ferritin 142.7 (8-388) ng/ml Total Bilirubin 0.3 (0.2-1) mg/dl AST 20 (15-37) U/L ALT 31 (12-78) U/L Alkaline Phosphatase 39 L (45-117) U/L Lactate Dehydrogenase 120 (87-241) U/L Total Creatine Kinase Cancelled Troponin I 0.188 H* (0-0.045) ng/ml C-Reactive Protein < 0.29 (0-0.29) mg/dl Total Protein 6.4 (6.4-8.2) gm/dl Albumin 3.2 L (3.4-5.0) gm/dl Globulin 3.2 (2.5-4.0) gm/dl Albumin/Globulin Ratio 1.0 (0.9-2) TSH Cancelled 01/03/20 Range/Units 00:05 WBC 7.05 (4.8-10.8) K/uL RBC 3.98 L (4.7-6.1) M/uL Hgb 12.3 L (14.0-18.0) g/dL Hct 37.4 L (42-52) % MCV 94.0 (80-100) fL MCH 30.9 (25-34) pg MCHC 32.9 (32-36) g/dL RDW Std Deviation 45.8 (36.4-46.3) fL RDW Coeff of Dawson 13.2 (11.5-14.5) % Plt Count 154 (130-400) K/uL MPV 10.7 H (7.4-10.4) fL Immature Gran % (Auto) 0.3 % Neut % (Auto) 57.5 % Lymph % (Auto) 29.1 % Mayes % (Auto) 9.2 % Eos % (Auto) 3.5 % Baso % (Auto) 0.4 % Neut # (Auto) 4.05 (1.4-6.5) K/uL Lymph # (Auto) 2.05 (1.2-3.4) K/uL Mayes # (Auto) 0.65 H (0.11-0.59) K/uL Eos # (Auto) 0.25 (0-0.5) K/uL Baso # (Auto) 0.03 (0-0.2) K/uL Immature Gran # (Auto) 0.02 (0.00-0.02) K/uL ESR (0-14) mm/hr Sodium (136-145) mmol/L Potassium (3.5-5.1) mmol/L Chloride (98-107) mmol/L Carbon Dioxide (21-32) mmol/L Anion Gap (3-11) BUN (7-18) mg/dl Creatinine (0.6-1.4) mg/dl Est Cr Clr Drug Dosing ml/min Est GFR ( Amer) Est GFR (Non-Af Amer) BUN/Creatinine Ratio (10-20) Glucose (70-99) mg/dl Calcium (8.5-10.1) mg/dl Ferritin (8-388) ng/ml Total Bilirubin (0.2-1) mg/dl AST (15-37) U/L ALT (12-78) U/L Alkaline Phosphatase (45-117) U/L Lactate Dehydrogenase (87-241) U/L Total Creatine Kinase Troponin I (0-0.045) ng/ml C-Reactive Protein (0-0.29) mg/dl Total Protein (6.4-8.2) gm/dl Albumin (3.4-5.0) gm/dl Globulin (2.5-4.0) gm/dl Albumin/Globulin Ratio (0.9-2) TSH Diagnostic Findings CT Head - Comparison with CT Head 05/20/16 - No acute intracranial hemorrhage. No skull fracture. No loss of child-white matter differentiation to suggest large vessel territory acute ischemia/infarction. Chronic small vessel ischemic changes and age-related parenchymal volume loss ECG Additional Comments: Study shows SR at 64bpm, 1st degree AV block with DF=021, SQH=172, HZg=584, RBBB, inferior infarct, non-specific TWI Code Status & VTE Plan Code Status DNR PG Care Time/CCT Total # of Minutes Spent Total Time Spent with Patient: Total time spent is greater than 50% in coordination of care (as documented) at patient's floor/unit and/or counseling patient: Coding Level of Care Code 15367 OBS Care - Level 3 Diagnoses Agitation R45.1 Elevated troponin R74.8 Coronary artery disease I25.10 Coronary Disease-Associated Artery/Lesion type: unspecified vessel or lesion type [place] vs. transplanted heart: [place] heart Associated angina: angina presence unspecified Alzheimer's dementia G30.9; F02.81 Alzheimer's disease onset: unspecified onset Dementia behavioral disturbance: with behavioral disturbance BPH (benign prostatic hyperplasia) N40.0 Lower urinary tract symptom presence: unspecified whether lower urinary tract symptoms present Hypothyroidism E03.9 Hypothyroidism type: unspecified Hypertension I10 Hypertension type: unspecified (1) Coronary artery disease Coronary Disease-Associated Artery/Lesion type: unspecified vessel or lesion type [place] vs. transplanted heart: [place] heart Associated angina: angina presence unspecified Qualified Code(s): I25.10 - Atherosclerotic heart disease of [place] coronary artery without angina pectoris (2) Alzheimer's dementia Alzheimer's disease onset: unspecified onset Dementia behavioral disturbance: with behavioral disturbance Qualified Code(s): G30.9 - Alzheimer's disease, unspecified; F02.81 - Dementia in other diseases classified elsewhere with behavioral disturbance (3) BPH (benign prostatic hyperplasia) Lower urinary tract symptom presence: unspecified whether lower urinary tract symptoms present Qualified Code(s): N40.0 - Benign prostatic hyperplasia without lower urinary tract symptoms (4) Hypothyroidism Hypothyroidism type: unspecified Qualified Code(s): E03.9 - Hypothyroidism, unspecified (5) Hypertension Hypertension type: unspecified Qualified Code(s): I10 - Essential (primary) hypertension
[2020-01-03] MEDS ORDERED: DOCUSATE SODIUM 100 MG CAP PO PRN (03:22)
[2020-01-03] MEDS ORDERED: ONDANSETRON INJ 2 MG/ML 2 ML VIAL IV PRN (03:22)
[2020-01-03] MEDS ORDERED: ACETAMINOPHEN 325 MG TAB PO PRN (03:22)
[2020-01-03] MEDS: MELATONIN 3 MG TAB PO SCH ×2 (04:08→22:05)
--- NOTE | 2020-01-03 04:09 | Communication Note ---
Date of Service: January 03, 2020 Was called to patient's room by nursing staff who noted patient had a fall yesterday at [facility] and now is having exquisitely tender mid back to palpa tion and right arm. Will get imaging of these areas and put in for prn morphine for ongoing pain.
[2020-01-03 04:32] LABS: Magnesium 2.1 mg/dl (1.8-2.4); Phosphorus 3.5 mg/dl (2.5-4.9)
[2020-01-03] MEDS: LEVOTHYROXINE SODIUM 50 MCG TABLET PO SCH (06:09)
[2020-01-03] MEDS: MoRPHine SULFATE 2 MG/ML CARP IV PRN ×2 (06:36→23:43)
--- NOTE | 2020-01-03 07:11 | CT Scan Report ---
HEAD CT NONCONTRAST CT DOSE: 614.27 mGy.cm HISTORY: altered mental status TECHNIQUE: Multiaxial CT images of the head were performed without the use of intravenous contrast. A utomated exposure control was utilized for this study. A dose lowering technique was utilized adheri ng to the principles of ALARA. Comparison: Head CT 05/20/2016. Findings: The paranasal sinuses and mastoid air cells are clear. The calvarium and skull base are int act. There is no mass, hematoma, midline shift, acute infarct. White matter hypodensity is nonspecifi c but suggestive of microvascular ischemic change. The ventricles and sulci demonstrate mild age-rela rafiq involutional changes. Impression: No acute intracranial abnormality. Atrophy and microvascular ischemic changes. ACT 112: Negative or not required by law. Electronically signed by: Emir Avery M.D. 01/03/2020 7:09 AM
[2020-01-03 08:38] LABS: Thyroid Stimulating Hormone 4.26 uIu/ml (0.300-4.500); Troponin I 0.192 ng/ml (0-0.045)
[2020-01-03] MEDS ORDERED: CHOLECALCIFEROL 50 MCG PO SCH (09:00)
--- NOTE | 2020-01-03 09:34 | XRay Report ---
XR forearm RT 2V CLINICAL HISTORY: arm pain bony tenderness, dementia pain. Edema. COMPARISON: None. DISCUSSION: The bones and joint spaces appear intact. There is no evidence of fracture, dislocation o r bony disease. There is no evidence for soft tissue swelling. IMPRESSION: Negative study. ACT 112: Negative or not required by law. The above report was generated using voice recognition software. It may contain grammatical, syntax or spelling errors. Electronically signed by: Roger Zavala M.D. 01/03/2020 9:33 AM
--- NOTE | 2020-01-03 09:35 | Electrocardiogram Report ---
Test Reason : Blood Pressure : / mmHG Vent. 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
--- NOTE | 2020-01-03 09:36 | XRay Report ---
XR humerus RT 2V CLINICAL HISTORY: Extreme arm pain, dementia pain COMPARISON: None. DISCUSSION: The bones and joint spaces appear intact. There is no evidence of fracture, dislocation o r bony disease. There is no evidence for soft tissue swelling. IMPRESSION: Negative study. ACT 112: Negative or not required by law. The above report was generated using voice recognition software. It may contain grammatical, syntax or spelling errors. Electronically signed by: Roger Zavala M.D. 01/03/2020 9:34 AM
--- NOTE | 2020-01-03 09:38 | XRay Report ---
XR thoracic spine 3V routine HISTORY: Pain Back Pain, tenderness to bony prominence dmentia COMPARISON: None. FINDINGS: There is no fracture. Mild scoliosis General degenerative disc change primarily in the mid to lower thoracic region. No evidence for compression deformity. Moderate anterior and lateral osteo phytic reaction throughout. IMPRESSION: Considerable degenerative disc changes mid to lower thoracic region. No acute process. Mild scoliosis . ACT 112: Negative or not required by law. The above report was generated using voice recognition software. It may contain grammatical, syntax or spelling errors. Electronically signed by: Roger Zavala M.D. 01/03/2020 9:37 AM
--- NOTE | 2020-01-03 10:00 | XRay Report ---
XR lumbar spine 2-3V CLINICAL HISTORY: Back Pain, dementia COMPARISON STUDY: No previous studies for comparison. FINDINGS: Moderate degenerative disc changes throughout. Minimal grade 1 anterolisthesis of L4-L5 fel t to be secondary to degenerative change of the posterior elements. No evidence for a compression deformity. Moderate degenerative change of the posterior facets through out. IMPRESSION: Generalized degenerative change. No acute process. ACT 112: Negative or not required by law. The above report was generated using voice recognition software. It may contain grammatical, syntax or spelling errors. Electronically signed by: Roger Zavala M.D. 01/03/2020 9:58 AM
--- NOTE | 2020-01-03 11:07 | XCELERA ---
[id number]
[2020-01-03] MEDS: DIVALPROEX DELAY RELEASE 125 MG TABEC PO SCH ×3 (11:59→22:33)
[2020-01-03] MEDS: SERTRALINE HCL 50 MG TABLET PO SCH (11:59)
[2020-01-03] MEDS: ROSUVASTATIN CALCIUM 20 MG TAB PO SCH (11:59)
[2020-01-03] MEDS: lisinopriL 10 MG TAB PO SCH (12:00)
[2020-01-03] MEDS: QUETIAPINE FUMARATE 25 MG TABLET PO SCH ×2 (12:00→21:49)
[2020-01-03] MEDS: CYANOCOBALAMIN 500 MCG TABLET (VITAMIN B-12) PO SCH (12:01)
[2020-01-03] MEDS: PANTOprazole 40 MG TAB PO SCH ×2 (12:01→21:50)
[2020-01-03] MEDS: ISOSORBIDE MONO EXTENDED REL 60 MG TABCR PO SCH (12:01)
[2020-01-03] MEDS: ASPIRIN 81 MG ECTAB PO SCH (12:01)
[2020-01-03] MEDS: PSYLLIUM 58.6% POWDER PACKET PO SCH (12:02)
[2020-01-03] MEDS: GABAPENTIN 100 MG CAP PO SCH ×2 (12:03→21:50)
--- NOTE | 2020-01-03 21:33 | Communication Note ---
Date of Service: January 03, 2020 Patient seen and examined. Patient appears less agitated. Trending troponin. Called family, but no answer. Given age and dementia, unsure as how aggresive family would like to pursue cardiac workup. consult obtained, but likely will defer to outpatient. Hopefully discharge tomorrow.
[2020-01-03] MEDS ORDERED: VALPROATE SOD 375 MG in DEXTROSE 5% 50 ML IV ONE (22:30)
[2020-01-04] MEDS: LEVOTHYROXINE SODIUM 50 MCG TABLET PO SCH (05:46)
[2020-01-04 06:11] LABS: Basophils # (auto) 0.03 K/uL (0-0.2); Basophils % (auto) 0.6 %; Eosinophils # (auto) 0.28 K/uL (0-0.5); Eosinophils % (auto) 5.9 %; Hematocrit (blood only) 39.6 % (42-52); Hemoglobin 12.9 g/dL (14.0-18.0); Lymphocytes # (auto) 1.56 K/uL (1.2-3.4); Lymphocytes % (auto) 32.6 %; Mean Corpuscular Hemoglobin 30.2 pg (25-34); Mean Corpuscular Hgb Conc 32.6 g/dL (32-36); Mean Corpuscular Volume 92.7 fL (80-100); Mean Platelet Volume 10.6 fL (7.4-10.4); Monocytes # (auto) 0.56 K/uL (0.11-0.59); Monocytes % (auto) 11.7 %; Neutrophils # (auto) 2.35 K/uL (1.4-6.5); Neutrophils % (auto) 49.2 %; Platelet Count 143 K/uL (130-400); RDW Coefficient of Variation 13.4 % (11.5-14.5); RDW Standard Deviation 45.1 fL (36.4-46.3); Red Blood Count 4.27 M/uL (4.7-6.1); White Blood Count 4.78 K/uL (4.8-10.8)
[2020-01-04 06:51] LABS: Calcium 8.6 mg/dl (8.5-10.1); Creatinine Clr Calc Pharmacy 52.3 ml/min; Est GFR (African American) 64.2; Est GFR (Non-African American) 55.4; Potassium 3.9 mmol/L (3.5-5.1)
[2020-01-04] MEDS: GABAPENTIN 100 MG CAP PO SCH ×2 (08:39→20:58)
[2020-01-04] MEDS: QUETIAPINE FUMARATE 25 MG TABLET PO SCH ×2 (08:40→20:58)
[2020-01-04] MEDS: ISOSORBIDE MONO EXTENDED REL 60 MG TABCR PO SCH (08:41)
[2020-01-04] MEDS: lisinopriL 10 MG TAB PO SCH (08:41)
[2020-01-04] MEDS: ASPIRIN 81 MG ECTAB PO SCH (08:41)
[2020-01-04] MEDS: CYANOCOBALAMIN 500 MCG TABLET (VITAMIN B-12) PO SCH (08:41)
[2020-01-04] MEDS: DIVALPROEX DELAY RELEASE 125 MG TABEC PO SCH ×2 (08:41→20:58)
[2020-01-04] MEDS: ROSUVASTATIN CALCIUM 20 MG TAB PO SCH (08:41)
[2020-01-04] MEDS: PSYLLIUM 58.6% POWDER PACKET PO SCH (08:42)
[2020-01-04] MEDS: PANTOprazole 40 MG TAB PO SCH ×2 (08:42→20:58)
[2020-01-04] MEDS: SERTRALINE HCL 50 MG TABLET PO SCH (08:42)
--- NOTE | 2020-01-04 11:51 | Electrocardiogram Report ---
Test Reason : Blood Pressure : / mmHG Vent. Rate : 065 BPM Atrial Rate : 065 BPM P-R Int : 178 ms QRS Dur : 138 ms QT Int : 440 ms P-R-T Axes : 033 044 074 degrees QTc Int : 457 ms Normal sinus rhythm Right bundle branch block Old Inferolateral infact (cited on or before 15-SEP-2003) Abnormal ECG When compared with ECG of 02-JAN-2020 22:30, No significant change Confirmed by Hemant Cherry ([id number]) on 01/04/2020 11:51:15 AM Referred By: [facility] Confirmed By:Hemant Cherry
[2020-01-04] MEDS ORDERED: AMLODIPINE BESYLATE 5 MG TAB PO ONE (14:00)
[2020-01-04] MEDS ORDERED: Nursing to Pharmacy Communication SCH (17:00)
--- NOTE | 2020-01-04 17:00 | Cardiology Consultation ---
Date of Consultation January 04, 2020 Assessment & Plan (1) Elevated troponin: (2) Coronary artery disease: (3) Status post coronary artery bypass grafting: (4) Agitation: (5) Alzheimer's dementia: Patient with remote CABG, catheterization 2016 with patent grafts, serial echocardiograms with a septal wall motion abnormality noted intermittently, admitted with agitation and found to have an elevated troponin but no dynamic ECG changes or symptoms to suggest acute coronary event or ongoing myocardial ischemia. He denied chest pain and looked comfortable at the time of my evaluation today, again underscoring the low likelihood that he is having an acute coronary syndrome or ongoing ischemia. Certainly, it is possible that he had a minor event, but his cardiac prognosis would remain favorable given a record of patent bypass grafts just 4 years ago, normal systolic function currently, and no evidence of cardiac complications such as congestive heart failure, dysrhythmia, etc. Given this context, it seems highly unlikely that he would benefit from a repeat cardiac catheterization with intent toward any revascularization. Would recommend continued medical management. He is on aspirin, nitrates, lisinopril, and rosuvastatin. Would continue all of these. Could add Plavix to his regimen as an additional antiplatelet agent, but would need to weigh the increased risk of bleeding/ecchymoses given his tendency toward agitation which apparently sometimes becomes physical. Will continue to follow along, certainly can reevaluate if he demonstrates new or more characteristic symptoms to suggest an ongoing cardiac phenomenon. History of Present Illness Reason for Consultation: No wall motion abnormality/elevated troponin. Requesting Physician: Rohit Curtis Attending Physician: Rohit Curtis History of Present Illness 74-year-old man with significant dementia, resides at [facility], admitted 01/02/2020 for agitation. He had previously been admitted to an inpatient geriatric psych unit in [place] March 2019, he apparently had chest pain at that time with a slightly elevated troponin but was not felt to have had an acute coronary syndrome. He denied any chest pain at the time of my evaluation and noted no prior chest pain, but due to his dementia he is considered an unreliable historian. He did appear comfortable and was walking about his room when I interviewed him. 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 Repeat ECG today showed similar findings with an intact baseline, no ST deviation seen. Cardiac enzymes showed an elevated but somewhat flat troponin curve (0.188, 0.192, 0.220, 0.188). At the time of my evaluation, the patient denied any symptoms and said that he felt well. Allergies Allergy/AdvReac Type Severity Reaction Status Date / Time dog dander Allergy Unknown SNEEZING Verified 01/02/20 22:51 No Known Drug Allergies Allergy Unknown . Verified 01/02/20 22:51 Dust Allergy Mild SNEEZING Uncoded 01/02/20 22:51 Home Medications Home Medications Medication Instructions Recorded Confirmed Type aspirin 81 mg PO DAILY 01/02/20 01/02/20 History cholecalciferol (vitamin D3) 50 mcg PO DAILY 01/02/20 01/02/20 History [Vitamin D3] cyanocobalamin (vitamin B-12) 500 mcg PO DAILY 01/02/20 01/02/20 History [Vitamin B-12] divalproex [Depakote] 375 mg PO BID 01/02/20 01/02/20 History gabapentin 100 mg PO BID 01/02/20 01/02/20 History isosorbide mononitrate 120 mg PO DAILY 01/02/20 01/02/20 History levothyroxine 50 mcg PO DAILY 01/02/20 01/02/20 History lisinopril 10 mg PO DAILY 01/02/20 01/02/20 History melatonin 3 mg PO HS 01/02/20 01/02/20 History nitroglycerin 0 mg SUBLINGUAL UD 01/02/20 01/02/20 History pantoprazole [Protonix] 20 mg PO BID 01/02/20 01/02/20 History psyllium seed (sugar) [Metamucil 1 tbsp PO DAILY 01/02/20 01/02/20 History (sugar)] quetiapine 50 mg PO QAM 01/02/20 01/02/20 History quetiapine 75 mg PO HS 01/02/20 01/02/20 History rosuvastatin 20 mg PO DAILY 01/02/20 01/02/20 History sertraline [Zoloft] 75 mg PO DAILY 01/02/20 01/02/20 History Patient History Medical History Alzheimer's dementia (Chronic) BPH (benign prostatic hyperplasia) (Chronic) Coronary artery disease (Chronic) "s/p CABG x 3 in 1996" Diverticular disease of colon (Chronic) Hypertension (Chronic) Hypothyroidism (Chronic) Osteoarthritis (Chronic) Surgical History History of bilateral knee arthroplasty (Chronic) History of inguinal hernia repair (Chronic) Status post colonoscopy (Chronic) "2013 diverticulosis" Status post coronary artery bypass grafting (Chronic) Family History Family history non-contributory Social History Preferred Language: Trinid[place] Communication Ability: Effective Current Living Situation: [facility] Feels Safe at Home: Declines to Answer Smoking Status: Unknown if ever smoked Review of Systems Review of Systems: Not readily obtainable given the patient's Physical Exam Physical Exam: Elderly white male answers simple questions appropriately, appeared comfortable walking about the room. Afebrile. BP normotensive to moderately hypertensive. Pulse 56-81 range. Normal respiratory rate. Skin: no ecchymoses or generalized lesions. HEENT: unremarkable. Neck: no JVD or carotid bruits. Lungs clear. Cardiac: regular rhythm and no murmur or gallop. Abdomen benign. Extremities: no edema, pulses brisk. Neurologic: Somewhat flat affect, grossly nonfocal. Results & Data ([facility]) Vital Signs (Past 12 Hours) Vital Signs Temp Pulse Resp BP Pulse Ox 01/04/20 06:27 98.2 F 60 20 173/103 H 96 Laboratory Results Troponin values as noted in HPI. ECGs as noted in HPI. Echocardiogram 01/03/2020 showed borderline dilated left ventricle with low normal systolic function (EF 55 to 60%) with no definite wall motion abnormalities but a small area of distal septal hypokinesis suggested in some views. There is moderate aortic sclerosis, grade 1 diastolic dysfunction, and mild tricuspid regurgitation with normal RV systolic pressure. Prior echocardiograms sometimes noted a septal wall motion abnormality (), but this wall motion abnormality was not noted on a 2017 study. PG Care Time/CCT Total # of Minutes Spent Total Time Spent with Patient: Total time spent is greater than 50% in coordination of care (as documented) at patient's floor/unit and/or counseling patient: Coding Level of Care Code 29258 Inpt Consult Level 4 Diagnoses Elevated troponin R74.8 Coronary artery disease I25.10 Coronary Disease-Associated Artery/Lesion type: unspecified vessel or lesion type [place] vs. transplanted heart: [place] heart Associated angina: angina presence unspecified Status post coronary artery bypass grafting Z95.1 Agitation R45.1 Alzheimer's dementia G30.9; F02.81 Alzheimer's disease onset: unspecified onset Dementia behavioral disturbance: with behavioral disturbance (1) Alzheimer's dementia Alzheimer's disease onset: unspecified onset Dementia behavioral disturbance: with behavioral disturbance Qualified Code(s): G30.9 - Alzheimer's disease, unspecified; F02.81 - Dementia in other diseases classified elsewhere with behavioral disturbance (2) Coronary artery disease Coronary Disease-Associated Artery/Lesion type: unspecified vessel or lesion type [place] vs. transplanted heart: [place] heart Associated angina: angina presence unspecified Qualified Code(s): I25.10 - Atherosclerotic heart disease of [place] coronary artery without angina pectoris
[2020-01-04] MEDS ORDERED: HALOPERIDOL LACTATE 5 MG/ML 1 ML VIAL IM STA ×3 (19:34→20:35)
[2020-01-04] MEDS ORDERED: LORazepam 1 MG/2 ML VIAL IV STA (19:34)
[2020-01-04] MEDS ORDERED: HALOPERIDOL LACTATE 5 MG/ML 1 ML VIAL ONE (19:36)
[2020-01-04] MEDS ORDERED: LORazepam 2 MG/4 ML VIAL ONE (19:37)
[2020-01-04] MEDS ORDERED: LORazepam 2 MG/4 ML VIAL IV STA (20:09)
[2020-01-04] MEDS: MELATONIN 3 MG TAB PO SCH (20:58)
--- NOTE | 2020-01-04 21:47 | Hospitalist Progress Note ---
Date of Service January 04, 2020 Assessment & Plan (1) Agitation: 74yo C male with history of dementia, agitation in the past presenting from [facility] for AMS, increased agitation. Patient reportedly biting and swinging at nursing staff. Currently resting but still becomes agitated when p ressed for questions or to participate in exam. Grossly nonfocal neurological exam, electroltyes WNL, CT head unremarkable. -likely progression of his alzheimer's -will continue to monitor -Continue home medications - Seroquel 50mg po qAM and 75mg po qHS, Depakote 375mg po BID -Continue Sertraline -Neurochecks q 4 hours -Reorientation as needed -continue as needed one to one. (2) Elevated troponin: Patient with history of CAD s/p CABG, elevated troponin today at 0.188. EKG with some non-specific changes. -Telemetry monitoring -reviewed 2 D echo. -consulted cardio appreciate input. -Continue ASA 81mg po daily -Continue Crestor 20mg po daily (3) Coronary artery disease: Known CAD, elevated troponin as above -Trend troponin -Check 2D echo in AM -Continue ASA, Crestor, Lisinopril - (4) Alzheimer's dementia: Agitation as above -Continue Seroquel, Depakote -Delirium prevention strategies with frequent orientation (5) BPH (benign prostatic hyperplasia): Chronic. Patient not on any medications -Monitor UOP (6) Hypothyroidism: Chronic -Check TSH -Continue Synthroid (7) Hypertension: Blood pressure slightly elevated -Continue Lisinopril, Isosorbide -Continue to monitor F/E/N - Heplock. Monitor electrolytes. Heart healthy diet as tolerated Ppx - low risk for DVT Code - DNR/DNI per review of records from [facility] awaiting covid testing. Admission and Anticipated Discharge Date Admission Date: January 03, 2020 Subjective Patient reports no new symptoms today. Patient contnues to appear agitated and is trying to leave the room. He has required a one to one. Review of Systems Review of Systems: All systems reviewed & are unremarkable except as noted in HPI & below Physical Exam Physical Exam: General: patient resting comfortably, arousable, oriented to self Skin: warm, dry, intact, no rashes or lesions HEENT: NC/AT, anicteric sclera, conjunctiva without injection, external ear normal to inspection and nontender, nares patent, moist mucus membranes, dentition intact, no oropharyngeal lesions, neck supple, trachea midline, no LAD, no thyromegaly, no JVD Heart: +S1/S2, regular, bradycardic, no m/r/g Lungs: equal air entry bilaterally, no rales/rhonchi/wheezes, poor participation with exam Abd: +BS, soft, NT/ND, no masses/organomegaly/ascites Ext: warm, 2+ pulses in UE/LE bilaterally, no clubbing/cyanosis or edema Neuro: nonfocal, patient AA&O x to self, patient grossly nonfocal, moving all extremities with equal strength PG Care Time/CCT Total # of Minutes Spent Total Time Spent with Patient: Total time spent is greater than 50% in coordination of care (as documented) at patient's floor/unit and/or counseling patient: Coding Level of Care Code 81557 Subseq Hosp Care Lvl 2 Diagnoses Agitation R45.1 Elevated troponin R74.8 Coronary artery disease I25.10 Coronary Disease-Associated Artery/Lesion type: unspecified vessel or lesion type [place] vs. transplanted heart: [place] heart Associated angina: angina presence unspecified Alzheimer's dementia G30.9; F02.81 Alzheimer's disease onset: unspecified onset Dementia behavioral disturbance: with behavioral disturbance BPH (benign prostatic hyperplasia) N40.0 Lower urinary tract symptom presence: unspecified whether lower urinary tract symptoms present Hypothyroidism E03.9 Hypothyroidism type: unspecified Hypertension I10 Hypertension type: unspecified Time Spent (min) 25 (1) Coronary artery disease Coronary Disease-Associated Artery/Lesion type: unspecified vessel or lesion type [place] vs. transplanted heart: [place] heart Associated angina: angina presence unspecified Qualified Code(s): I25.10 - Atherosclerotic heart disease of [place] coronary artery without angina pectoris (2) Alzheimer's dementia Alzheimer's disease onset: unspecified onset Dementia behavioral disturbance: with behavioral disturbance Qualified Code(s): G30.9 - Alzheimer's disease, unspecified; F02.81 - Dementia in other diseases classified elsewhere with behavioral disturbance (3) BPH (benign prostatic hyperplasia) Lower urinary tract symptom presence: unspecified whether lower urinary tract symptoms present Qualified Code(s): N40.0 - Benign prostatic hyperplasia without lower urinary tract symptoms (4) Hypothyroidism Hypothyroidism type: unspecified Qualified Code(s): E03.9 - Hypothyroidism, unspecified (5) Hypertension Hypertension type: unspecified Qualified Code(s): I10 - Essential (primary) hypertension
[2020-01-05] MEDS: LEVOTHYROXINE SODIUM 50 MCG TABLET PO SCH (05:32)
--- NOTE | 2020-01-05 07:02 | Communication Note ---
Date of Service: December Was called to evaluate Mr. Villareal around 1999 on January 03 patient was quite agitated pacing around the room voicing paranoid theories and starting to become hostile and physically intimidating towards nursing and lab support technician. I sat and talked to patient and he was only oriented to person and was getting progressively more agitated and starting to pace around the room. As he seemed to be a danger to himself, nursing and lab support technician, and his unfortunate roomate I elected to sedate patient with 2 mg ativan and 5 mg haldol. Patient did not respond initially and became more agitated whereupon he required two more doses of haldol.
[2020-01-05] MEDS: PANTOprazole 40 MG TAB PO SCH ×2 (08:13→20:58)
[2020-01-05] MEDS: lisinopriL 10 MG TAB PO SCH (08:13)
[2020-01-05] MEDS: ASPIRIN 81 MG ECTAB PO SCH (08:13)
[2020-01-05] MEDS: ROSUVASTATIN CALCIUM 20 MG TAB PO SCH (08:13)
[2020-01-05] MEDS: ISOSORBIDE MONO EXTENDED REL 60 MG TABCR PO SCH (08:14)
[2020-01-05] MEDS: DIVALPROEX DELAY RELEASE 125 MG TABEC PO SCH ×2 (08:16→21:00)
[2020-01-05] MEDS: GABAPENTIN 100 MG CAP PO SCH ×2 (08:16→20:58)
[2020-01-05] MEDS: PSYLLIUM 58.6% POWDER PACKET PO SCH (08:18)
[2020-01-05] MEDS: QUETIAPINE FUMARATE 25 MG TABLET PO SCH ×2 (08:19→21:01)
[2020-01-05] MEDS: CYANOCOBALAMIN 500 MCG TABLET (VITAMIN B-12) PO SCH (08:20)
[2020-01-05] MEDS: SERTRALINE HCL 50 MG TABLET PO SCH (08:22)
[2020-01-05 10:34] LABS: Basophils # (auto) 0.03 K/uL (0-0.2); Basophils % (auto) 0.4 %; Eosinophils # (auto) 0.23 K/uL (0-0.5); Eosinophils % (auto) 3.3 %; Hematocrit (blood only) 42.1 % (42-52); Hemoglobin 14.2 g/dL (14.0-18.0); Lymphocytes # (auto) 2.17 K/uL (1.2-3.4); Lymphocytes % (auto) 31.4 %; Mean Corpuscular Hemoglobin 31.1 pg (25-34); Mean Corpuscular Volume 92.1 fL (80-100); Mean Platelet Volume 10.9 fL (7.4-10.4); Monocytes # (auto) 0.71 K/uL (0.11-0.59); Monocytes % (auto) 10.3 %; Neutrophils # (auto) 3.76 K/uL (1.4-6.5); Neutrophils % (auto) 54.6 %; Platelet Count 171 K/uL (130-400); RDW Coefficient of Variation 13.3 % (11.5-14.5); RDW Standard Deviation 44.5 fL (36.4-46.3); Red Blood Count 4.57 M/uL (4.7-6.1)
[2020-01-05 10:43] LABS: Mean Corpuscular Hgb Conc 33.7 g/dL (32-36)
[2020-01-05 10:51] LABS: Albumin Level 3.4 gm/dl (3.4-5.0); BUN Creatinine Ratio 14.7 (10-20); Calcium 8.6 mg/dl (8.5-10.1); Creatinine Clr Calc Pharmacy 51.1 ml/min; Est GFR (African American) 62.4; Est GFR (Non-African American) 53.9; Magnesium 2.2 mg/dl (1.8-2.4); Potassium 3.8 mmol/L (3.5-5.1)
[2020-01-05 10:55] LABS: INR 1.1 (0.9-1.1); Partial Thromboplastin Ratio 0.9; Partial Thromboplastin Time 25.4 Seconds (21.0-31.0); Prothrombin Time 11.2 Seconds (9.0-12.0)
[2020-01-05 10:59] LABS: Bilirubin,Total 0.6 mg/dl (0.2-1); Globulin 3.4 gm/dl (2.5-4.0); Total Protein 6.8 gm/dl (6.4-8.2); Troponin I 0.262 ng/ml (0-0.045)
--- NOTE | 2020-01-05 11:23 | Hospitalist Progress Note ---
Date of Service January 05, 2020 Assessment & Plan (1) Hypotension: Concern that the Haldol likely caused this orthostasis. Patient will be placed on tredelenberg. Obtained a fluid bolus. will hold BP meds. obtained EKG: NO CHANGES. d/w CARDIO. OBTAINED BLOOD WORK. This is a life threatening event. Spent about 32 minutes with direct patient contact. I updated the . (2) Agitation: 74yo C male with history of dementia, agitation in the past presenting from [facility] for AMS, increased agitation. Patient reportedly biting and swinging at nursing staff. Currently resting but still becomes agitated when pressed for questions or to participate in exam. Grossly nonfocal neurological exam, electroltyes WNL, CT head unremarkable. -likely progression of his alzheimer's -will continue to monitor -Continue home medications - Seroquel 50mg po qAM and 75mg po qHS, Depakote 375mg po BID -Continue Sertraline -Neurochecks q 4 hours -Reorientation as needed -continue as needed one to one. (3) Elevated troponin: Patient with history of CAD s/p CABG, elevated troponin today at 0.188. EKG with some non-specific changes. -Telemetry monitoring -reviewed 2 D echo. -consulted cardio appreciate input. -Continue ASA 81mg po daily -Continue Crestor 20mg po daily (4) Coronary artery disease: Known CAD, elevated troponin as above -Trend troponin -Check 2D echo in AM -Continue ASA, Crestor, Lisinopril - (5) Alzheimer's dementia: Agitation as above -Continue Seroquel, Depakote -Delirium prevention strategies with frequent orientation (6) BPH (benign prostatic hyperplasia): Chronic. Patient not on any medications -Monitor UOP (7) Hypothyroidism: Chronic -Check TSH -Continue Synthroid (8) Hypertension: Blood pressure slightly elevated -Continue Lisinopril, Isosorbide -Continue to monitor F/E/N - Heplock. Monitor electrolytes. Heart healthy diet as tolerated Ppx - low risk for DVT Code - DNR/DNI per review of records from [facility] Admission and Anticipated Discharge Date Admission Date: January 04, 2020 Subjective Patient had a code purple at 10:06. He was cold and clammy His blood pressure dropped. His EKG showed no changes. Ordered repeat blood work. placed in tredelenberg. will stop antihypertensives. will consult psych for agitation. overnight received haldol and ativan. Review of Systems Review of Systems: All systems reviewed & are unremarkable except as noted in HPI & below Physical Exam Physical Exam: General: patient resting comfortably, arousable, oriented to self Skin: warm, dry, intact, no rashes or lesions HEENT: NC/AT, anicteric sclera, conjunctiva without injection, external ear normal to inspection and nontender, nares patent, moist mucus membranes, dentition intact, no oropharyngeal lesions, neck supple, trachea midline, no LAD, no thyromegaly, no JVD Heart: +S1/S2, regular, bradycardic, no m/r/g Lungs: equal air entry bilaterally, no rales/rhonchi/wheezes, poor participation with exam Abd: +BS, soft, NT/ND, no masses/organomegaly/ascites Ext: warm, 2+ pulses in UE/LE bilaterally, no clubbing/cyanosis or edema Neuro: nonfocal, patient AA&O x to self, patient grossly nonfocal, moving all extremities with equal strength Results & Data Results & Data ([facility]) Vital Signs (Past 12 Hours) Vital Signs Temp Pulse Resp BP BP Pulse Ox 01/05/20 11:17 36.4 C L 67 14 122/75 96 01/05/20 07:41 36.5 C 63 16 178/90 H 99 01/05/20 04:02 36.8 C 58 L 16 149/88 H 94 PG Care Time/CCT Total # of Minutes Spent Total Time Spent with Patient: Total time spent is greater than 50% in coordination of care (as documented) at patient's floor/unit and/or counseling patient: Critical Care Time: Yes Total Critical Care Time: 32 Coding Level of Care Code 65771 Subseq Hosp Care Lvl 3 Diagnoses Hypotension I95.9 Agitation R45.1 Elevated troponin R74.8 Coronary artery disease I25.10 Associated angina: angina presence unspecified Coronary Disease-Associated Artery/Lesion type: unspecified vessel or lesion type [place] vs. transplanted heart: [place] heart Alzheimer's dementia G30.9; F02.81 Alzheimer's disease onset: unspecified onset Dementia behavioral disturbance: with behavioral disturbance BPH (benign prostatic hyperplasia) N40.0 Lower urinary tract symptom presence: unspecified whether lower urinary tract symptoms present Hypothyroidism E03.9 Hypothyroidism type: unspecified Hypertension I10 Hypertension type: unspecified Additional Codes Critical Care Time - Critical Care Time: Yes ([id number]) Time Spent (min) 35 (1) BPH (benign prostatic hyperplasia) Lower urinary tract symptom presence: unspecified whether lower urinary tract symptoms present Qualified Code(s): N40.0 - Benign prostatic hyperplasia without lower urinary tract symptoms (2) Coronary artery disease Associated angina: angina presence unspecified Coronary Disease-Associated Artery/Lesion type: unspecified vessel or lesion type [place] vs. transplanted heart: [place] heart Qualified Code(s): I25.10 - Atherosclerotic heart disease of [place] coronary artery without angina pectoris (3) Alzheimer's dementia Alzheimer's disease onset: unspecified onset Dementia behavioral disturbance: with behavioral disturbance Qualified Code(s): G30.9 - Alzheimer's disease, unspecified; F02.81 - Dementia in other diseases classified elsewhere with behavioral disturbance (4) Hypothyroidism Hypothyroidism type: unspecified Qualified Code(s): E03.9 - Hypothyroidism, unspecified (5) Hypertension Hypertension type: unspecified Qualified Code(s): I10 - Essential (primary) hypertension
--- NOTE | 2020-01-05 12:26 | Psychiatric Consultation ---
Date of Consultation January 05, 2020 Impression / Recommendations Impression Dr. Katerin Worthington was directly involved in review and discussion of the patient's case and participated in medical decision making regarding treatment recommendations. RECOMMENDATIONS: 01/04 - Consulted for agitation, related to diagnosis of Alzheimer's dementia - increased agitation over the past several days. - Patient was sedated and reported to be a poor historian at baseline - c ollateral information obtained from the patient's , however this information is rather limited as well as has not been permitted to visit [facility] recently related to COVID-19 pandemic precautions. - In general, discussed black box warning for risk of mortality with using antipsychotic medications in the setting of dementia - states she would support quality of life and is agreeable with consideration for medication changes. - Will attempt to gather collateral information from [facility] psychiatrist - Dr. Mix, as reports the patient has had several medication changes recently. - Can continue to manage agitation with prn haloperidol. Will assess if further medication changes are warranted after collateral information is obtained. - Obtaining a Depakote level should be considered if patient becomes more consistent with his medications, and certainly if he should demonstrate any signs of Depakote toxicity. - Continue delirium/dementia protocol - Will continue to follow patient and provide additional recommendations as indicated. Please reach out to our service with any additional questions or updates. Psych History Identifying Data 74-year-old male admitted medically on 01/02/2020 from [facility] due to concern for altered mental status and increased agitation. Psychiatric consultation requested to evaluate patient for agitation/dementia. Chief Complaint sleeping for most of visit - did at one point verbalize "I am not here." History of Present Illness Ion "Christina Villareal is a 74-year-old male admitted medically on 01/02/2020 from [facility] where he has been living since 06/2019. Pt has a diagnosis of Alzheimer's dementia and there has been observation of worsening agitation for the past few days. While being evaluated in the ED, the patient's troponin was noted to be elevated and the patient was recommended for admission and further work-up/observation. Psychiatric consultation was requested to evaluate patient for agitation/dementia. Documentation reviewed, which suggests the patient because agitated this morning, requiring a total of 15mg of haloperidol. At time of encounter, patient is sleeping and snoring and does not wake to verbal stimuli. Pt's , Sarah, was present in the room and agreed to provide this provider with supplemental information. states that at baseline there are times the her does not recognize her, but admits this has worsened in the past few weeks. She admits she has going to [facility] to do the "window visits" for the past 2 weeks - prior to the COVID-19 pandemic should would routinely visit the patient and take him on outings. Pt was reportedly placed at [facility] 2 years ago, and was transferred to [facility] in 06/2019 to be closer to family. Pt was hospitalized at [facility] in [place] for geripsych treatment in 03/2019 related to increased agitation. Pt's states that he has been followed by Dr. Mix, who has made several recent adjustments to his medication regimen and "finally found something that worked well, at least until the past few weeks." is unfortunately unable to name any previous psychotropic medications. Pt reports she is happy with the treatment her is receiving at [facility] and is hopeful the patient will be able to return. She does indicate that she began noticing some increased anxiety and bizarre behavior "about 10 years ago. He was in a panic to drive our camper and wouldn't climb ladders anymore, it wasn't like him." Pt relates this to the early stages of his Alzheimer's. Discussed with general considerations as it relates to agitation in the setting of dementia. Specifically, black box warning of increased mortality with use of antipsychotics in elderly/dementia patients was discussed. states she would be in support of comfort and quality of life and is agreeable with medication adjustments should they be recommended. Pt did wake toward the very end of conversation with his . Pt states "I am not here." He was asked if he would like a blanket, as the said he felt cold. He took quite some time to think about the question, and ultimately responded with only "eh, maybe I'd think about it." He then quickly returned back to sleep. was encouraged to reach out to our service with any additional questions or concerns. Past Psychiatric History Previous Psych History: denies known psychiatric history in this patient. He was hospitalized at [facility] geripsychiatry facility in [place] in 03/2019 due to agitation related to dementia. There is documentation to suggest patient is followed by Dr. Mix at [facility] for psychiatric medication management. Past Medication Trials: - could not provide information about previous psychotropic medication trials Allergies Allergy/AdvReac Type Severity Reaction Status Date / Time dog dander Allergy Unknown SNEEZING Verified 01/02/20 22:51 No Known Drug Allergies Allergy Unknown . Verified 01/02/20 22:51 Dust Allergy Mild SNEEZING Uncoded 01/02/20 22:51 Home Medications Home Medications Medication Instructions Recorded Confirmed Type aspirin 81 mg PO DAILY 01/02/20 01/02/20 History cholecalciferol (vitamin D3) 50 mcg PO DAILY 01/02/20 01/02/20 History [Vitamin D3] cyanocobalamin (vitamin B-12) 500 mcg PO DAILY 01/02/20 01/02/20 History [Vitamin B-12] divalproex [Depakote] 375 mg PO BID 01/02/20 01/02/20 History gabapentin 100 mg PO BID 01/02/20 01/02/20 History isosorbide mononitrate 120 mg PO DAILY 01/02/20 01/02/20 History levothyroxine 50 mcg PO DAILY 01/02/20 01/02/20 History lisinopril 10 mg PO DAILY 01/02/20 01/02/20 History melatonin 3 mg PO HS 01/02/20 01/02/20 History nitroglycerin 0 mg SUBLINGUAL UD 01/02/20 01/02/20 History pantoprazole [Protonix] 20 mg PO BID 01/02/20 01/02/20 History psyllium seed (sugar) [Metamucil 1 tbsp PO DAILY 01/02/20 01/02/20 History (sugar)] quetiapine 50 mg PO QAM 01/02/20 01/02/20 History quetiapine 75 mg PO HS 01/02/20 01/02/20 History rosuvastatin 20 mg PO DAILY 01/02/20 01/02/20 History sertraline [Zoloft] 75 mg PO DAILY 01/02/20 01/02/20 History Family History Pt adopted at age 3, per . Family history of medical and mental health diagnoses is largely unknown. Substance Abuse History No significant substance abuse history per 's report Personal History Living Arrangements: [facility] ([facility] since 06/2019) Highest Grade Completed: College Marital Status: (to of 38 years) Beliefs That Will Affect Care: Episcopal Patient History Medical History Alzheimer's dementia (Chronic) BPH (benign prostatic hyperplasia) (Chronic) Coronary artery disease (Chronic) Diverticular disease of colon (Chronic) Hypertension (Chronic) Hypothyroidism (Chronic) Osteoarthritis (Chronic) Surgical History History of bilateral knee arthroplasty (Inactive) History of inguinal hernia repair (Inactive) Status post colonoscopy (Inactive) "2013 diverticulosis" Status post coronary artery bypass grafting (Chronic 1996) ROMANO-LAD, SVG-RPDA, SVG-Diagonal (all grafts patent at cath 2015) Family History Other Family history non-contributory Social History Preferred Language: Citizen Of [place] Communication Ability: Effective Beliefs That Will Affect Care: Episcopal Current Living Situation: [facility] Other Information That Helps Us Care for You: No (patient is confused) Feels Safe at Home: Declines to Answer Smoking Status: Unknown if ever smoked Physical Exam Psychiatric: Orientation: + not alert (sedated, snoring, does not wake spontaneously to verbal stimuli) Pt sleeping, no signs of agitation or distress Apperance: appropriately dressed (wearing t-shirt), + disheveled and appeared stated age Eye Contact: + poor eye contact (sleeping) Motor Behavior: no abnormal motor movements (observed while laying in bed sleeping) Vital Signs (Past 24 Hours): Last Vital Signs Temp 36.4 C L 01/05/20 11:17 Pulse 67 01/05/20 11:17 Resp 14 01/05/20 11:17 BP 122/75 01/05/20 11:17 Pulse Ox 96 01/05/20 11:17 Review of Systems Patient is sedated, unable to respond to questioning at this time. Does not verbalize any physical complaints. Results & Data (PSY) Medications Administered Acetaminophen (Tylenol) 650 mg PO Q4H PRN PRN Reason: pain/fever Stop: 02/02/20 03:21 Last Admin: 01/03/20 03:44 Dose: 650 mg Documented by: [id number] Aspirin (Ecotrin Ectab) 81 mg PO DAILY [facility] Stop: 02/02/20 08:59 Last Admin: 01/05/20 08:13 Dose: 81 mg Documented by: [id number] Admin: 01/04/20 08:41 Dose: 81 mg Documented by: [id number] Admin: 01/03/20 12:01 Dose: 81 mg Documented by: [id number] Cyanocobalamin (Vitamin B-12) 500 mcg PO DAILY [facility] Stop: 02/02/20 08:59 Last Admin: 01/05/20 08:20 Dose: 500 mcg Documented by: [id number] Admin: 01/04/20 08:41 Dose: 500 mcg Documented by: [id number] Admin: 01/03/20 12:01 Dose: 500 mcg Documented by: [id number] Divalproex Sodium (Depakote Delay Release) 375 mg PO BID [facility] Stop: 02/02/20 08:59 Last Admin: 01/05/20 08:16 Dose: 375 mg Documented by: [id number] Admin: 01/04/20 20:58 Dose: Not Given Documented by: [id number] Admin: 01/04/20 08:41 Dose: 375 mg Documented by: [id number] Admin: 01/03/20 22:33 Dose: Not Given Documented by: [id number] Admin: 01/03/20 11:59 Dose: 375 mg Documented by: [id number] Gabapentin (Neurontin) 100 mg PO BID [facility] Stop: 02/02/20 08:59 Last Admin: 01/05/20 08:16 Dose: 100 mg Documented by: [id number] Admin: 01/04/20 20:58 Dose: Not Given Documented by: [id number] Admin: 01/04/20 08:39 Dose: 100 mg Documented by: [id number] Admin: 01/03/20 21:50 Dose: 100 mg Documented by: [id number] Admin: 01/03/20 12:03 Dose: 100 mg Documented by: [id number] Isosorbide Mononitrate (Imdur Extended Rel) 120 mg PO DAILY [facility] Stop: 02/02/20 08:59 Last Admin: 01/05/20 08:14 Dose: 120 mg Documented by: [id number] Admin: 01/04/20 08:41 Dose: 120 mg Documented by: [id number] Admin: 01/03/20 12:01 Dose: 120 mg Documented by: [id number] Levothyroxine Sodium (Synthroid) 50 mcg PO DAILYBB [facility] Stop: 02/02/20 06:29 Last Admin: 01/05/20 05:32 Dose: Not Given Documented by: [id number] Admin: 01/04/20 05:46 Dose: Not Given Documented by: [id number] Admin: 01/03/20 06:09 Dose: 50 mcg Documented by: [id number] Melatonin (Melatonin) 3 mg PO [facility] Stop: 02/02/20 03:29 Last Admin: 01/04/20 20:58 Dose: Not Given Documented by: [id number] Admin: 01/03/20 22:05 Dose: Not Given Documented by: [id number] Admin: 01/03/20 04:08 Dose: Not Given Documented by: [id number] Morphine Sulfate (Morphine Sulfate) 2 mg IV Q4H PRN PRN Reason: Pain Stop: 01/17/20 04:08 Last Admin: 01/03/20 23:43 Dose: 2 mg Documented by: [id number] Admin: 01/03/20 06:36 Dose: 2 mg Documented by: [id number] Pantoprazole Sodium (Protonix) 40 mg PO BID [facility] Stop: 02/02/20 08:59 Last Admin: 01/05/20 08:13 Dose: 40 mg Documented by: [id number] Admin: 01/04/20 20:58 Dose: Not Given Documented by: [id number] Admin: 01/04/20 08:42 Dose: 40 mg Documented by: [id number] Admin: 01/03/20 21:50 Dose: 40 mg Documented by: [id number] Admin: 01/03/20 12:01 Dose: 40 mg Documented by: [id number] Psyllium Hydrophilic Mucilloid (Metamucil) 1 pkt PO DAILY [facility] Stop: 02/02/20 08:59 Last Admin: 01/05/20 08:18 Dose: 1 pkt Documented by: [id number] Admin: 01/04/20 08:42 Dose: 1 pkt Documented by: [id number] Admin: 01/03/20 12:02 Dose: 1 pkt Documented by: [id number] Quetiapine Fumarate (Seroquel) 75 mg PO [facility] Stop: 02/02/20 20:59 Last Admin: 01/04/20 20:58 Dose: Not Given Documented by: [id number] Admin: 01/03/20 21:49 Dose: 75 mg Documented by: [id number] Quetiapine Fumarate (Seroquel) 50 mg PO QAM [facility] Stop: 02/02/20 08:59 Last Admin: 01/05/20 08:19 Dose: 50 mg Documented by: [id number] Admin: 01/04/20 08:40 Dose: 50 mg Documented by: [id number] Admin: 01/03/20 12:00 Dose: 50 mg Documented by: [id number] Rosuvastatin Calcium (Crestor) 20 mg PO DAILY [facility] Stop: 02/02/20 08:59 Last Admin: 01/05/20 08:13 Dose: 20 mg Documented by: [id number] Admin: 01/04/20 08:41 Dose: 20 mg Documented by: [id number] Admin: 01/03/20 11:59 Dose: 20 mg Documented by: [id number] Sertraline HCl (Zoloft) 75 mg PO DAILY [facility] Stop: 02/02/20 08:59 Last Admin: 01/05/20 08:22 Dose: 75 mg Documented by: [id number] Admin: 01/04/20 08:42 Dose: 75 mg Documented by: [id number] Admin: 01/03/20 11:59 Dose: 75 mg Documented by: [id number] Coding Level of Care Code 90912 [facility] Intl Hosp Care Lvl 1
--- NOTE | 2020-01-05 14:26 | Cardiology Progress Note ---
Date of Service January 05, 2020 Assessment & Plan (1) Syncope: (2) Chest pain: (3) Elevated troponin: (4) Coronary artery disease: Etiology of his syncope is unclear. However, given several hours of relative hypotension after his episode, and since he was on lisinopril, amlodipine, and received doses of Haldol and lorazepam, he may have been orthostatic. Would agree with withholding vasoactive medications, would be preferable to allow some degree of permissive hypertension then to risk recurrent syncope. Alternatively, he could have had a dysrhythmia, although this would not likely cause prolonged hypotension. If possible, he will be back on a monitor to assess for recurrent dysrhythmias (his monitor was previously removed because he kept pulling it off). Mild troponin elevation likely due to his syncopal episode with demand ischemia. In the absence of dynamic ECG changes or more dramatic/ongoing chest pain (he has alluded to transient symptoms but does not clutch his chest or indicate ongoing pain), still doubt that he has having an acute coronary syndrome. Will continue to follow along with you. Admission and Anticipated Discharge Date Admission Date: January 04, 2020 Anticipated date of discharge: 01/04/20 Subjective Patient had apparently been doing reasonably well but had abrupt loss of consciousness (code purple called) earlier today. He was not on a monitor at the time, but apparently had complained of chest discomfort and was standing upright at the time. He was resuscitated with Trendelenburg position and IV fluids, his blood pressure remained borderline hypotensive for an hour or so before returning to normal and he gradually awoke and ultimately was able to stand without assistance. He denied any chest or other pain, but he clearly has difficulty articulating any complaints due to his dementia. Routine labs showed a modest troponin elevation (not unexpected in this context) but were otherwise unremarkable. ECG was unchanged from his baseline and showed no acute process. When I stopped back this afternoon, he had no complaints and appeared comfortable. Physical Exam Physical Exam: Elderly white male answers simple questions appropriately, appeared comfortable. Afebrile. BP normotensive currently. Pulse 58-78 range. Normal respiratory rate. Skin: no ecchymoses or generalized lesions. HEENT: unremarkable. Neck: no JVD or carotid bruits. Lungs clear. Cardiac: regular rhythm and no murmur or gallop. Abdomen benign. Extremities: no edema, pulses brisk. Neurologic: Somewhat flat affect, grossly nonfocal. Results & Data ([facility]) Vital Signs (Past 12 Hours) Vital Signs Temp Pulse Resp BP BP Pulse Ox 01/05/20 11:17 97.5 F L 67 14 122/75 96 01/05/20 07:41 97.7 F 63 16 178/90 H 99 01/05/20 04:02 98.2 F 58 L 16 149/88 H 94 Diagnostic Findings ECG showed sinus rhythm with first-degree AV block, right bundle branch block, o ld inferolateral infarct, no change compared with yesterday. PG Care Time/CCT Total # of Minutes Spent Total Time Spent with Patient: Total time spent is greater than 50% in coordination of care (as documented) at patient's floor/unit and/or counseling patient: Coding Level of Care Code 48044 Subseq Hosp Care Lvl 3 Diagnoses Syncope R55 Chest pain R07.9 Elevated troponin R74.8 Coronary artery disease I25.10 Coronary Disease-Associated Artery/Lesion type: unspecified vessel or lesion type [place] vs. transplanted heart: [place] heart Associated angina: angina presence unspecified (1) Coronary artery disease Coronary Disease-Associated Artery/Lesion type: unspecified vessel or lesion type [place] vs. transplanted heart: [place] heart Associated angina: angina presence unspecified Qualified Code(s): I25.10 - Atherosclerotic heart disease of [place] coronary artery without angina pectoris
--- NOTE | 2020-01-05 14:54 | Electrocardiogram Report ---
Test Reason : Blood Pressure : / mmHG Vent. 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
[2020-01-05 17:42] LABS: Appearance Urine Clear (Clear); Bacteria Urine Automated Negative (Negative); Bilirubin Urine Negative (Negative); Blood Urine Negative (Negative); Color Urine Yellow; Epithelial Cell Urine Auto >30 /lpf (0-5); Glucose Urine UA Negative (Negative); Ketones Urine 1+ (Negative); Leukocyte Esterase Urine Negative (Negative); Nitrite Urine Negative (Negative); Protein Urine 1+ (Negative); RBC Urine Automated 0-4 /hpf (0-4); Specific Gravity Urine 1.025 (1.000-1.030); Urobilinogen Urine Negative (Negative)
[2020-01-05 17:58] LABS: Renal Epithelial Cells Urine 0-5 /lpf (0-5)
[2020-01-05] MEDS: MELATONIN 3 MG TAB PO SCH (21:00)
[2020-01-06] MEDS: LEVOTHYROXINE SODIUM 50 MCG TABLET PO SCH (05:56)
[2020-01-06] MEDS: PSYLLIUM 58.6% POWDER PACKET PO SCH (07:38)
[2020-01-06] MEDS: ASPIRIN 81 MG ECTAB PO SCH (07:38)
[2020-01-06] MEDS: SERTRALINE HCL 50 MG TABLET PO SCH (07:39)
[2020-01-06] MEDS: ROSUVASTATIN CALCIUM 20 MG TAB PO SCH (07:39)
[2020-01-06] MEDS: QUETIAPINE FUMARATE 25 MG TABLET PO SCH (07:39)
[2020-01-06] MEDS: CYANOCOBALAMIN 500 MCG TABLET (VITAMIN B-12) PO SCH (07:40)
[2020-01-06] MEDS: GABAPENTIN 100 MG CAP PO SCH (07:40)
[2020-01-06] MEDS: PANTOprazole 40 MG TAB PO SCH (07:41)
[2020-01-06] MEDS: DIVALPROEX DELAY RELEASE 125 MG TABEC PO SCH (07:54)
[2020-01-06] MEDS: ISOSORBIDE MONO EXTENDED REL 60 MG TABCR PO SCH (07:55)
[2020-01-06] MEDS ORDERED: DIVALPROEX SODIUM SPRINKLE 125 MG CAP PO ONE (11:31)
--- NOTE | 2020-01-06 12:33 | Cardiology Progress Note ---
Date of Service January 06, 2020 Assessment & Plan (1) Syncope: (2) Elevated troponin: (3) Coronary artery disease: (4) Status post coronary artery bypass grafting: (5) Hypotension: Patient appeared clinically well today. Doubt acute coronary syndrome or dysrhythmia played a role in his syncope yesterday given his favorable appearing clinical status today. Still suspect orthostasis from multiple medications, would continue to withhold his vasoactive medications and even allow for a mod est degree of permissive hypertension to reduce his risk of recurrent syncope. Await repeat troponin, in the absence of dramatic elevation would not pursue further cardiac work-up at this time. Admission and Anticipated Discharge Date Admission Date: January 04, 2020 Anticipated date of discharge: 01/04/20 Subjective Patient was walking about his room and had no complaints. When asked specifically about chest pain or dyspnea, he denied both. Physical Exam Physical Exam: Elderly white male answers simple questions appropriately, appeared comfortable. Afebrile. BP normotensive. Pulse 63-77 range. Normal respiratory rate. Skin: no ecchymoses or generalized lesions. HEENT: unremarkable. Neck: no JVD or carotid bruits. Lungs clear. Cardiac: regular rhythm and no murmur or gallop. Abdomen benign. Extremities: no edema, pulses brisk. Neurologic: Somewhat flat affect, grossly nonfocal. Results & Data ([facility]) Vital Signs (Past 12 Hours) Vital Signs Temp Pulse Resp BP Pulse Ox 01/06/20 11:25 98.4 F 76 18 110/72 97 01/06/20 07:56 97.9 F 63 16 126/74 93 Laboratory Results Troponin from yesterday morning was 0.26, value from today is pending. No ECG today. PG Care Time/CCT Total # of Minutes Spent Total Time Spent with Patient: Total time spent is greater than 50% in coordination of care (as documented) at patient's floor/unit and/or counseling patient: Coding Level of Care Code 33095 Subseq Hosp Care Lvl 3 Diagnoses Syncope R55 Elevated troponin R74.8 Coronary artery disease I25.10 Coronary Disease-Associated Artery/Lesion type: unspecified vessel or lesion type [place] vs. transplanted heart: [place] heart Associated angina: angina presence unspecified Status post coronary artery bypass grafting Z95.1 Hypotension I95.9 (1) Coronary artery disease Coronary Disease-Associated Artery/Lesion type: unspecified vessel or lesion type [place] vs. transplanted heart: [place] heart Associated angina: angina presence unspecified Qualified Code(s): I25.10 - Atherosclerotic heart disease of [place] coronary artery without angina pectoris
[2020-01-06] MEDS ORDERED: LORazepam 2 MG/ML VIAL (IM USE) IM STA (16:33)
[2020-01-06] MEDS ORDERED: LORazepam 2 MG/4 ML VIAL ONE (16:35)
[2020-01-06] MEDS ORDERED: DIVALPROEX SODIUM SPRINKLE 125 MG CAP PO SCH (21:00)
--- NOTE | 2020-01-13 13:05 | Discharge Summary ---
Date of Service January 06, 2020 Admission HPI Per Admitting Provider Ion Villareal is a 74yo C male with history of dementia with behavioral issues/agitation in the past. Patient reportedly fell yesterday. This evening he became acutely agitated and was biting staff members at [facility] therefore he was transferred to [facility]. On arrival he was found to be afebrile, HTN otherwise HD stable, NAD. Agitated. ER Course: NSS x 500mL Principal Diagnosis agitation Discharge Exam General: patient resting comfortably, arousable, oriented to self Skin: warm, dry, intact, no rashes or lesions HEENT: NC/AT, anicteric sclera, conjunctiva without injection, external ear normal to inspection and nontender, nares patent, moist mucus membranes, dentition intact, no oropharyngeal lesions, neck supple, trachea midline, no LAD, no thyromegaly, no JVD Heart: +S1/S2, regular, bradycardic, no m/r/g Lungs: equal air entry bilaterally, no rales/rhonchi/wheezes, poor participation with exam Abd: +BS, soft, NT/ND, no masses/organomegaly/ascites Ext: warm, 2+ pulses in UE/LE bilaterally, no clubbing/cyanosis or edema Neuro: nonfocal, patient AA&O x to self, patient grossly nonfocal, moving all extremities with equal strength Discharge Data Allergies Allergy/AdvReac Type Severity Reaction Status Date / Time dog dander Allergy Unknown SNEEZING Verified 01/02/20 22:51 No Known Drug Allergies Allergy Unknown . Verified 01/02/20 22:51 Dust Allergy Mild SNEEZING Uncoded 01/02/20 22:51 Consultations 01/03/20 15:01 Consult Cardiology Routine 01/05/20 10:57 Consult Psychiatry Routine Ordered Studies 01/02/20 22:49 CT head/brain wo con Urgent Hospital Course (1) Hypotension: Patient had an episode of hypotension, the day prior to discharge. Since that episode his vitals have improved. Decreased his BP meds by remving lisinopril. Will recommend to monitor BP as outpatient and resume if BPs are extremely elevated.. (2) Agitation: 74yo C male with history of dementia, agitation in the past presenting from [facility] for AMS, increased agitation. Patient reportedly biting and swinging at nursing staff. Currently resting but still becomes agitated when pressed for questions or to participate in exam. Grossly nonfocal neurological exam, electroltyes WNL, CT head unremarkable. -likely progression of his alzheimer's -will continue to monitor -Continue home medications - Seroquel 50mg po qAM and 75mg po qHS, Depakote 375mg po BID -Continue Sertraline -Patient appears that he was not compliant with his depakote, which may be affecting his mood. Ordered sprinkled version to place it in his apple sauce. (3) Elevated troponin: Patient with history of CAD s/p CABG, elevated troponin today at 0.188. EKG with some non-specific changes. -Telemetry monitoring -reviewed 2 D echo. -consulted cardio appreciate input. -Continue ASA 81mg po daily -Continue Crestor 20mg po daily (4) Coronary artery disease: Known CAD, elevated troponin as above -Continue ASA, Crestor - (5) Alzheimer's dementia: Agitation as above -Continue Seroquel, Depakote -Delirium prevention strategies with frequent orientation (6) BPH (benign prostatic hyperplasia): Chronic. Patient not on any medications -Monitor UOP (7) Hypothyroidism: Chronic -Check TSH -Continue Synthroid (8) Hypertension: Blood pressure slightly elevated -Continue Lisinopril, Isosorbide -Continue to monitor Total Time Total Time Spent Total Time Spent (In Minutes): 32 Total Time Includes: Examination of the Patient, Discharge Planning and Medication Reconciliation Discharge Plan Discharge Items Patient Disposition: Transfer Group Home Fac Reason For Visit: AMS, ELEVATED TROP Discharge Diagnosis: Altered mental status, elevated trop Activity: Resume your previous activity Non-emergency contact: Primary Care Provider Call non-emergency contact if: you have any medication questions Follow-up/Referrals: Cecy Alvarez [Primary Care Provider] - Diet: Heart Healthy Addtl Attending Provider Instructions: You were found to be agitated. We think it may be due to the noncompliance of depakote. will switch this to the sprinkled version and have this in your apple sauce. check depakote level in 1 week. Limit use of antipsychotic like haldol Pending Studies at Discharge: No Stand-Alone Forms: My [facility] Skilled Items Patient informed of condition?: No DNR: Yes (DNR/DNI) Discharge Level of Care: Skilled Communicable Disease: No Discharge Prognosis: Stable Lines: None Urinary Catheter: No Medications and DC Order Prescriptions: New divalproex 125 mg Capsule, Delayed Rel Sprinkle 375 mg PO BID 30 Days Qty: 180 RF: 0 Continued quetiapine 25 mg Tablet 75 mg PO HS RF: 0 melatonin 3 mg Tablet 3 mg PO HS RF: 0 aspirin 81 mg Tablet,Delayed Release (Dr/Ec) 81 mg PO DAILY RF: 0 isosorbide mononitrate 120 mg Tablet Extended Release 24 Hr 120 mg PO DAILY RF: 0 pantoprazole [Protonix] 20 mg Tablet,Delayed Release (Dr/Ec) 20 mg PO BID RF: 0 cyanocobalamin (vitamin B-12) [Vitamin B-12] 500 mcg Tablet 500 mcg PO DAILY RF: 0 levothyroxine 50 mcg Tablet 50 mcg PO DAILY RF: 0 nitroglycerin 0.4 mg Tablet, Sublingual 0 mg sublingual UD RF: 0 gabapentin 100 mg Capsule 100 mg PO BID RF: 0 sertraline [Zoloft] 50 mg Tablet 75 mg PO DAILY RF: 0 rosuvastatin 20 mg Tablet 20 mg PO DAILY RF: 0 Metamucil (sugar) Powder 1 tbsp PO DAILY RF: 0 quetiapine 50 mg Tablet 50 mg PO QAM RF: 0 cholecalciferol (vitamin D3) [Vitamin D3] 50 mcg (2,000 unit) Capsule 50 mcg PO DAILY RF: 0 Discontinued lisinopril 10 mg Tablet 10 mg PO DAILY RF: 0 divalproex [Depakote] 125 mg Tablet,Delayed Release (Dr/Ec) 375 mg PO BID RF: 0 Discharge Orders: Discharge Order (Routine); Ordered 01/06/20 Ordered By: Rohit Curtis Admission Data Admit Date/Time: 01/03/20 01:49 Attending Provider: Rohit Curtis Admit Provider: Laquita Love Primary Care Provider: Cecy Alvarez Other Providers: Nikolas Marcelo ; Katerin Worthington Other Interventions: Discharge Summary Assessment (RN) Last Done: 01/06/20 12:35 DC Date/Time DO NOT enter until pt leaves facility: 01/06/20 17:11 Coding Level of Care Code D/C Day Management >30 mins Diagnoses Hypotension I95.9 Agitation R45.1 Elevated troponin R74.8 Coronary artery disease I25.10 Coronary Disease-Associated Artery/Lesion type: unspecified vessel or lesion type [place] vs. transplanted heart: [place] heart Associated angina: angina presence unspecified Alzheimer's dementia G30.9; F02.81 Alzheimer's disease onset: unspecified onset Dementia behavioral disturbance: with behavioral disturbance BPH (benign prostatic hyperplasia) N40.0 Lower urinary tract symptom presence: unspecified whether lower urinary tract symptoms present Hypothyroidism E03.9 Hypothyroidism type: unspecified Hypertension I10 Hypertension type: unspecified Time Spent (min) 32
== END 2020-01-06 17:11 ==
LOC: 2W 22:20 → ED 22:20 → SUATTDRO 01-03 01:49 → 2W 01-03 02:48